=== PATIENT | male | born 1945 | race Caucasian/White ===

== ENCOUNTER 2017-05-26 10:44 | Inpatient (IN) | payer OTHER ==
[~2017-05-26] VITALS: Ht 175.3 cm; Wt 65.3 kg
[2017-05-26 13:37] LABS: BASOPHILS % 0.8 % (0.0-1.0); EOSINOPHILS # (AUTO) 0.1 (0.0-0.4); EOSINOPHILS % 2.4 % (0.0-6.0); HEMATOCRIT 44.2 % (38.2-49.6); HEMOGLOBIN 14.9 g/dL (14.0-18.0); LYMPHOCYTES # (AUTO) 1.4 (1.0-3.2); LYMPHOCYTES % 27.9 % (18.0-39.1); MEAN CORPUSCULAR HEMOGLOBIN 32.3 pg (28-32); MEAN CORPUSCULAR HGB CONC 33.7 g/dL (31-35); MEAN CORPUSCULAR VOLUME 95.7 fL (81-99); MONOCYTES # (AUTO) 0.6 (0.2-0.8); MONOCYTES % 11.5 % (4.4-11.3); NEUTROPHILS # (AUTO) 2.8 (2.1-6.9); NEUTROPHILS % 57.2 % (38.7-80.0); PLATELET COUNT 174 x10e3/uL (140-360); RED BLOOD COUNT 4.62 x10e6/uL (4.3-5.7); RED CELL DISTRIBUTION WIDTH 12.9 % (11.7-14.4)
[2017-05-26 13:58] LABS: ALANINE AMINOTRANSFERASE 13 IU/L (0-55); ALBUMIN 3.6 g/dL (3.5-5.0); ALBUMIN/GLOBULIN RATIO 1.6 (0.8-2.0); ALKALINE PHOSPHATASE 79 IU/L (40-150); ANION GAP 10.9 mmol/L (8-16); BLOOD UREA NITROGEN 13 mg/dL (7-26); BUN/CREATININE RATIO 14 (6-25); CALCIUM 9.2 mg/dL (8.4-10.2); CARBON DIOXIDE 28 mmol/L (22-29); CHLORIDE 103 mmol/L (98-107); CREATINE KINASE 42 IU/L (30-200); CREATININE, SERUM 0.93 mg/dL (0.72-1.25); EST GLOMERULAR FILTRATION RATE > 60 ML/MIN (60-); GLUCOSE 85 mg/dL (74-118); POTASSIUM 3.9 mmol/L (3.5-5.1); SODIUM 138 mmol/L (136-145)
[2017-05-26 14:17] LABS: THYROID STIMULATING HORMONE 1.525 uIU/mL (0.350-4.940)
[2017-05-26] MEDS ORDERED: SODIUM CHLORIDE 0.9% 1000ML 1,000 ML IV SCH (14:45)
[2017-05-26 15:02] LABS: COLOR,URINE YELLOW (YELLOW); KETONES,URINE TRACE (NEGATIVE); LEUKOCYTE ESTERASE ,URINE 1+ (NEGATIVE); URINE UROBILINOGEN 0.2 mg/dL (0.2 - 1)
[2017-05-26 15:07] LABS: CLARITY,URINE SL CLOUDY (CLEAR); NITRITE,URINE POSITIVE (NEGATIVE)
[2017-05-26 15:08] LABS: BILIRUBIN,URINE 1+ (NEGATIVE); PROTEIN,URINE DIPSTICK 2+ (NEGATIVE)
[2017-05-26 15:16] LABS: BACTERIA,URINE MANY /HPF; EPITHELIAL CELLS,URINE RARE /LPF; MUCUS,URINE MODERATE (RARE); RBC,URINE 21-50 /HPF (0-5)
--- NOTE | 2017-05-26 16:14 | Diagnostic Imaging Report ---
EXAMINATION: CHEST SINGLE (PORTABLE) INDICATION: \S\SOB \[id number] \S\1525 \S\Y COMPARISON: None FINDINGS: AP view TUBES and LINES: None. LUNGS: Lungs are well inflated. Lungs are clear. There is no evidence of pneumonia or pulmonary edema. PLEURA: No pleural effusion or pneumothorax. HEART AND MEDIASTINUM: The cardiomediastinal silhouette is unremarkable. BONES AND SOFT TISSUES: No acute osseous lesion. Soft tissues are unremarkable. UPPER ABDOMEN: No free air under the diaphragm. IMPRESSION: No acute thoracic abnormality. Signed by: DR. Luis Fernando Willoughby MD on 05/26/2017 4:11 PM
[2017-05-26] MEDS ORDERED: ONDANSETRON HCL INJ 2 MG/ML VIAL IV PRN (17:15)
[2017-05-26] MEDS: SODIUM CHLORIDE 0.9% 1000ML 1,000 ML IV SCH (17:37)
[2017-05-26 19:50] VITALS: BP 117/82
[2017-05-26] MEDS: MEROPENEM 1 GM VIAL IV SCH (20:20)
[2017-05-26] MEDS ORDERED: FLOMAX0.4 MG PO (21:01)
[2017-05-26] MEDS ORDERED: FINASTERIDE5 MG PO (21:01)
[2017-05-26] MEDS ORDERED: LOSARTAN POTASS25 MG PO (21:01)
[2017-05-26] MEDS ORDERED: BUPROPION XL150 MG PO (21:01)
[2017-05-26] MEDS ORDERED: ABILIFY5 MG PO (21:02)
[2017-05-26] MEDS ORDERED: METOPROLOL SUCC25 MG PO (21:02)
[2017-05-26] MEDS ORDERED: ATORVASTATIN CA20 MG PO (21:02)
[2017-05-26] MEDS ORDERED: ASPIRIN81 MG PO (21:02)
[2017-05-26 21:03] VITALS: BP 117/82
[2017-05-26 21:16] VITALS: BP 117/82
[2017-05-26 22:48] LABS: CREATINE KINASE MB 0.8 ng/mL (0.00-5.00)
[2017-05-26] MEDS ORDERED: MEROPENEM 1GRAM 1 GM in SODIUM CHLORIDE 0.9% 100 ML 100 ML IV SCH (23:00)
[2017-05-27] VITALS: BP 139/90
[2017-05-27] MEDS: MEROPENEM 1 GM VIAL IV SCH ×3 (02:25→17:06)
[2017-05-27] MEDS: SODIUM CHLORIDE 0.9% 1000ML 1,000 ML IV SCH ×4 (02:25→19:37)
[2017-05-27 04:00] VITALS: BP 137/79
[2017-05-27 07:05] LABS: BASOPHILS # (AUTO) 0.1 (0.0-0.1); BASOPHILS % 0.9 % (0.0-1.0); EOSINOPHILS # (AUTO) 0.2 (0.0-0.4); EOSINOPHILS % 4.1 % (0.0-6.0); HEMATOCRIT 41.8 % (38.2-49.6); HEMOGLOBIN 13.7 g/dL (14.0-18.0); LYMPHOCYTES # (AUTO) 1.9 (1.0-3.2); LYMPHOCYTES % 34.2 % (18.0-39.1); MEAN CORPUSCULAR HEMOGLOBIN 32.3 pg (28-32); MEAN CORPUSCULAR HGB CONC 32.8 g/dL (31-35); MEAN CORPUSCULAR VOLUME 98.6 fL (81-99); MONOCYTES # (AUTO) 0.5 (0.2-0.8); MONOCYTES % 9.1 % (4.4-11.3); NEUTROPHILS # (AUTO) 2.8 (2.1-6.9); NEUTROPHILS % 51.3 % (38.7-80.0); PLATELET COUNT 148 x10e3/uL (140-360); RED BLOOD COUNT 4.24 x10e6/uL (4.3-5.7); RED CELL DISTRIBUTION WIDTH 12.8 % (11.7-14.4)
[2017-05-27 07:28] LABS: ANION GAP 11.9 mmol/L (8-16); BLOOD UREA NITROGEN 12 mg/dL (7-26); BUN/CREATININE RATIO 16 (6-25); CALCIUM 8.3 mg/dL (8.4-10.2); CARBON DIOXIDE 25 mmol/L (22-29); CHLORIDE 110 mmol/L (98-107); CREATINE KINASE 30 IU/L (30-200); CREATININE, SERUM 0.75 mg/dL (0.72-1.25); EST GLOMERULAR FILTRATION RATE > 60 ML/MIN (60-); GLUCOSE 68 mg/dL (74-118); POTASSIUM 3.9 mmol/L (3.5-5.1); SODIUM 143 mmol/L (136-145)
[2017-05-27 08:02] VITALS: BP 140/65
--- NOTE | 2017-05-27 10:07 | History and Physical ---
CHIEF COMPLAINT: Dehydration, prostatitis with Banerjee catheter due to urinary retention. HISTORY: Patient is a 71-year-old male recently discharged from the [facility]. The patient has urinary retention. He has an enlarged prostate. He is pending for TURP procedures, and apparently he was at the outpatient procedure room when he did not look well. Patient was brought to the hospital and subsequently found to have a urinary tract infection, low blood pressure and also with dehydration. The patient is placed in observation. The patient will need to continue with antibiotic treatment. He will need to have a procedure done before he leaves the hospital because of recurrent infection. He was hospitalized recently, and TURP was not done at the time. PAST MEDICAL HISTORY: Enlarged prostate with prostate cancer, recurrent urinary tract infections, Banerjee catheter in place, hypertension, and hyperlipidemia, and mild dementia. PAST SURGICAL HISTORY: Noncontributory. SOCIAL HISTORY: Patient does not smoke or use alcohol. No regular drugs. ALLERGIES: TOBRAMYCIN. HOME MEDICATIONS: List will be available for review. REVIEW OF SYSTEMS: No chest pain. No shortness of breath and no neurological deficit. PHYSICAL EXAMINATION VITAL SIGNS: Temperature is 98, blood pressure 140/65, pulse rate is 56, respirations 18. GENERAL: The patient is not in acute distress. He is awake. HEENT: Normocephalic, atraumatic and anicteric. NECK: Supple grossly. PULMONARY: Clear. CARDIOVASCULAR: Regular rate and rhythm. ABDOMEN: Soft. EXTREMITIES: No gross cyanosis or edema. NEUROLOGIC: No focal deficit. The patient has a Banerjee catheter in place. Urinalysis showed 2+ protein, 1+ bilirubin, 4+ blood, wbcs of 10 with rbcs of 50. Leukocytes are 1+ and bacteria negative. IMPRESSION 1. Prostatitis. 2. Urinary retention. 3. Recurrent hospitalizations. 4. Transurethral resection of prostate needed. PLAN: Prep the patient for the procedure of TURP. The patient will be admitted for pending procedure. The patient has a recurrent problem with his Banerjee catheter when he is discharged home. The patient will have the same cycle of infection with Banerjee catheter in place. The patient is otherwise stable at this time. Job#: [id number] MA
[2017-05-27 12:06] VITALS: BP 134/84
[2017-05-27 15:49] VITALS: BP 134/84
[2017-05-27 19:20] VITALS: BP 145/93
[2017-05-28] VITALS (7 sets, daily range): BP systolic 137–158; BP diastolic 84–95
[2017-05-28] MEDS: MEROPENEM 1 GM VIAL IV SCH ×3 (02:00→17:51)
[2017-05-28] MEDS: SODIUM CHLORIDE 0.9% 1000ML 1,000 ML IV SCH ×2 (09:08→17:51)
--- NOTE | 2017-05-28 11:22 | Cardiology Report ---
DATE OF STUDY: May 27, 2017 ECHOCARDIOGRAM M-MODE: Dilated left atrium. Top normal left ventricular size. Diminished left ventricular contractility. Normal mitral and aortic valves. No pericardial effusion. SECTOR SCAN: Dilated left atrium. Top normal left ventricular size. Diminished left ventricular contractility. Ejection fraction 30% to 35%. Mitral, aortic and tricuspid valves are grossly normal. There is no pericardial effusion. CARDIAC DOPPLER STUDY WITH COLOR: 1+ aortic regurgitation. 1 to 2+ mitral regurgitation. Trace tricuspid regurgitation. There is evidence of diastolic dysfunction. CONCLUSIONS 1. Diminished left ventricular contractility. Ejection fraction estimated at 30% to 35%. 2. Evidence of diastolic dysfunction. 3. Mild to moderate mitral regurgitation with dilated left atrium. 4. Mild aortic regurgitation. 5. Trace tricuspid regurgitation. Job#: [id number] cc:TITA SALCEDO MD
[2017-05-28] MEDS: ARIPIPRAZOLE 2 MG TABLET PO SCH (21:00)
[2017-05-28] MEDS: ATORVASTATIN 20 MG TAB PO SCH (21:00)
[2017-05-28] MEDS: METOPROLOL SUCCINATE 25 MG TAB XL PO SCH (21:00)
[2017-05-29] VITALS (7 sets, daily range): BP systolic 136–142; BP diastolic 81–92
[2017-05-29] MEDS: MEROPENEM 1 GM VIAL IV SCH ×3 (01:17→17:43)
[2017-05-29] MEDS: FINASTERIDE 5 MG TAB PO SCH (08:19)
[2017-05-29] MEDS: LOSARTAN POTASSIUM 100 MG TAB PO SCH (08:19)
[2017-05-29] MEDS: BUPROPION HCL 75 MG TAB PO SCH (08:19)
[2017-05-29] MEDS: MEMANTINE 10 MG TAB PO SCH ×2 (11:00→17:19)
[2017-05-29] MEDS: TAMSULOSIN HCL 0.4 MG CAP PO SCH (17:19)
[2017-05-29] MEDS: METOPROLOL SUCCINATE 25 MG TAB XL PO SCH (21:00)
[2017-05-29] MEDS: ATORVASTATIN 20 MG TAB PO SCH (21:07)
[2017-05-29] MEDS: ARIPIPRAZOLE 2 MG TABLET PO SCH (21:07)
[2017-05-30] VITALS (7 sets, daily range): BP systolic 111–135; BP diastolic 68–87
[2017-05-30] MEDS: MEROPENEM 1 GM VIAL IV SCH ×3 (01:24→18:36)
[2017-05-30] MEDS: BUPROPION HCL 75 MG TAB PO SCH (08:52)
[2017-05-30] MEDS: LOSARTAN POTASSIUM 100 MG TAB PO SCH (08:52)
[2017-05-30] MEDS: MEMANTINE 10 MG TAB PO SCH ×2 (08:52→17:45)
[2017-05-30] MEDS: FINASTERIDE 5 MG TAB PO SCH (08:52)
--- NOTE | 2017-05-30 10:57 | Consultation ---
DATE OF CONSULTATION: May 30, 2017 CARDIOLOGY CONSULTATION REQUESTING PHYSICIAN: Dr. Bo Cartwright. REASON FOR CONSULTATION: Cardiac clearance. HISTORY OF PRESENT ILLNESS: This is a 71-year-old male with multiple hospital admissions that presented with low heart rate. According to the at the bedside, he was at Dr. Zavala's office for outpatient followup and they found out that the heart rate was low and he was sent over here for evaluation. He had an echocardiogram done that showed EF 30% to 35%, and Cardiology was consulted for cardiac clearance. He denies any chest pain, any palpitation, any diaphoresis or headache. His troponin was negative. EKG showed normal sinus rhythm with some PVCs. PAST MEDICAL HISTORY: Hypertension, AFib, multiple UTIs, BPH, prostatitis, indwelling catheter. PAST SURGICAL HISTORY: Hernia repair, left testicle removal. FAMILY HISTORY: Noncontributory. SOCIAL HISTORY: No smoking, no drinking. MEDICATIONS: See med list. ALLERGIES: HE IS ALLERGIC TO TOBRAMYCIN. REVIEW OF SYSTEMS: Negative except those mentioned above. PHYSICAL EXAMINATION VITAL SIGNS: Temperature 97, heart rate 50, blood pressure 122/76, respiration 18, oxygen saturation 95% on room air. GENERAL: He is alert, awake and very lethargic. HEENT: Mucous membrane moist. NECK: Supple. LUNGS: Bilaterally with decreased breath sounds. CARDIOVASCULAR: Irregular. ABDOMEN: Soft. NEUROLOGICAL: Intact. He is able to move all extremities. EXTREMITIES: Bilateral lower extremities with plus edema. LABS: Sodium 143, potassium 3.9, chloride 110, CO2 25, BUN 12, creatinine 0.75, glucose 68. White blood cell 5.41, hemoglobin 13.7, hematocrit 41.8, platelet 148. IMPRESSION 1. Systolic congestive heart failure. 2. Prostatitis. 3. Hypertension. 4. Urinary tract infection. 5. Bradycardia. 6. History of atrial fibrillation. ASSESSMENT/PLAN: He has history of AFib in the past and was on metoprolol and not anticoagulated according to the . I will go ahead and put him on a tele monitor. Hold the beta mauro. I discussed about possible cardiac catheterization, and he and the want to think about it. He is planned for TURP. Will check his TSH and magnesium. Further cardiac workup pending clinical course. Thank you for this consultation. Dictated by: Perla Espitia NP Job#: [id number] EV
[2017-05-30] MEDS: TAMSULOSIN HCL 0.4 MG CAP PO SCH (17:45)
[2017-05-30] MEDS: ARIPIPRAZOLE 2 MG TABLET PO SCH (21:02)
[2017-05-30] MEDS: ATORVASTATIN 20 MG TAB PO SCH (21:02)
[2017-05-31] VITALS (9 sets, daily range): BP systolic 119–150; BP diastolic 72–94
[2017-05-31] MEDS: MEROPENEM 1 GM VIAL IV SCH ×4 (02:00→20:50)
[2017-05-31] MEDS: BUPROPION HCL 75 MG TAB PO SCH ×2 (09:00→13:12)
[2017-05-31] MEDS: LOSARTAN POTASSIUM 100 MG TAB PO SCH ×2 (09:00→13:12)
[2017-05-31] MEDS: FINASTERIDE 5 MG TAB PO SCH ×2 (09:00→13:12)
[2017-05-31] MEDS: MEMANTINE 10 MG TAB PO SCH ×3 (09:00→16:46)
[2017-05-31] MEDS: TAMSULOSIN HCL 0.4 MG CAP PO SCH (17:05)
[2017-05-31] MEDS: ARIPIPRAZOLE 2 MG TABLET PO SCH (20:50)
[2017-05-31] MEDS: ATORVASTATIN 40 MG TAB PO SCH (20:50)
[2017-06-01] MEDS: MEROPENEM 1 GM VIAL IV SCH ×3 (04:49→21:31)
[2017-06-01 05:26] VITALS: BP 117/79
[2017-06-01] MEDS ORDERED: LIDOCAINE HCL 2% LOCAL 20 ML VIAL ONE ×2 (07:05→07:11)
[2017-06-01] MEDS ORDERED: HEPARIN SOD/SOD CHLORIDE 2,000 ML ONE (07:06)
[2017-06-01] MEDS ORDERED: IOPAMIDOL 370 MG/ML 200 ML INFUS..BTL INJ ONE (07:06)
[2017-06-01] MEDS ORDERED: HEPARIN SOD (PORCINE) 1000 UNIT/ML 30ML ONE (07:10)
[2017-06-01] MEDS ORDERED: FENTANYL CITRATE/PF 100MCG/2 ML INJ ONE (07:11)
[2017-06-01] MEDS ORDERED: MIDAZOLAM HCL 2 MG/2 ML VIAL ONE (07:11)
[2017-06-01] MEDS ORDERED: SODIUM CHLORIDE 0.9% 1000ML 1,000 ML ONE ×2 (07:12→13:59)
[2017-06-01] MEDS ORDERED: NITROGLYCERIN/D5W 200 MCG/ML 250 ML ONE (07:13)
[2017-06-01 07:25] VITALS: BP 127/65
[2017-06-01 08:33] VITALS: BP 127/65
[2017-06-01] MEDS: FINASTERIDE 5 MG TAB PO SCH (09:00)
[2017-06-01] MEDS: BUPROPION HCL 75 MG TAB PO SCH (09:00)
[2017-06-01] MEDS: LOSARTAN POTASSIUM 100 MG TAB PO SCH (09:00)
[2017-06-01] MEDS: MEMANTINE 10 MG TAB PO SCH ×2 (09:00→17:00)
[2017-06-01 09:08] VITALS: BP 126/74
[2017-06-01 12:25] VITALS: BP 121/84
[2017-06-01] MEDS: SODIUM CHLORIDE 0.9% 1000ML 1,000 ML IV SCH (14:22)
[2017-06-01] MEDS: VANCOMYCIN 1GM/NS 250 ML 250 ML IV SCH (14:22)
[2017-06-01] MEDS: TAMSULOSIN HCL 0.4 MG CAP PO SCH (16:30)
--- NOTE | 2017-06-01 18:29 | Operative Report ---
DATE OF PROCEDURE: PROCEDURES 1. Left heart catheterization. 2. Selective coronary angiogram. 3. Left ventriculogram. INDICATIONS: Cardiomyopathy. DESCRIPTION OF PROCEDURE: After informed consent, the patient was brought to the cardiac catheterization laboratory and placed on the table. Both groins were painted and draped in a sterile fashion. Lidocaine injected into the right groin for local anesthesia. Right femoral artery was accessed by Seldinger technique, and a 5-Northern Irish sheath was placed in the right femoral artery. The left main was cannulated using a JL4 5-Northern Irish catheter. Coronary angiogram was performed and images obtained in multiple views. The right coronary artery was cannulated using a 3DRC 5-Northern Irish catheter. Coronary angiogram was performed and images obtained in multiple views. LV-gram was performed using a pigtail catheter. Patient tolerated the procedure without any complications. REPORT LEFT MAIN: Normal caliber and is free of disease. LEFT ANTERIOR DESCENDING: Normal caliber with luminal irregularities. LEFT CIRCUMFLEX: Large caliber with luminal irregularities. RIGHT CORONARY ARTERY: Narrow caliber, nondominant with luminal irregularities. LV-GRAM: Ejection fraction is 40% to 45%. HEMODYNAMICS: Aortic pressure 122/65. LV pressure 117/20. LVEDP is 8. PLAN: Medical management. Job#: [id number] JINA
[2017-06-01 20:51] VITALS: BP 138/83
[2017-06-01] MEDS: ATORVASTATIN 40 MG TAB PO SCH (23:01)
[2017-06-01] MEDS: ARIPIPRAZOLE 2 MG TABLET PO SCH (23:01)
[2017-06-02] VITALS (8 sets, daily range): BP systolic 110–135; BP diastolic 70–89
[2017-06-02] MEDS: SODIUM CHLORIDE 0.9% 1000ML 1,000 ML IV SCH ×2 (00:32→10:45)
[2017-06-02] MEDS: VANCOMYCIN 1GM/NS 250 ML 250 ML IV SCH ×2 (00:41→13:15)
[2017-06-02] MEDS: MEROPENEM 1 GM VIAL IV SCH ×3 (05:35→21:52)
[2017-06-02] MEDS: FINASTERIDE 5 MG TAB PO SCH (09:00)
[2017-06-02] MEDS: MEMANTINE 10 MG TAB PO SCH ×2 (09:00→17:00)
[2017-06-02] MEDS: LOSARTAN POTASSIUM 100 MG TAB PO SCH (09:00)
[2017-06-02] MEDS: BUPROPION HCL 75 MG TAB PO SCH (09:00)
[2017-06-02] MEDS ORDERED: BELLADONNA/OPIUM 60 MG SUPP PR ONE (11:57)
[2017-06-02] MEDS ORDERED: IOPAMIDOL 610MG/1ML 300 MG/ML VIAL IV ONE (11:57)
[2017-06-02] MEDS ORDERED: SODIUM CHLORIDE 0.9% 100 ML 100 ML ONE (14:11)
[2017-06-02] MEDS ORDERED: BELLADONNA/OPIUM 60 MG SUPP PR PRN (14:15)
[2017-06-02] MEDS: TAMSULOSIN HCL 0.4 MG CAP PO SCH (16:30)
[2017-06-02] MEDS ORDERED: FENTANYL CITRATE/PF 100MCG/2 ML INJ ONE (20:11)
[2017-06-02] MEDS ORDERED: ONDANSETRON HCL INJ 2 MG/ML VIAL ONE (20:14)
[2017-06-02] MEDS ORDERED: PHENYLEPHRINE HCL 1% 10 MG/ML VIAL ONE (20:14)
[2017-06-02] MEDS ORDERED: ROCURONIUM BROMIDE 10 MG/ML 5ML VIAL ONE (20:14)
[2017-06-02] MEDS ORDERED: GLYCOPYRROLATE INJ 1MG/ 5 ML SYR ONE (20:14)
[2017-06-02] MEDS ORDERED: SEVOFLURANE INHAL SOLN 250 ML PEN BTL ONE (20:14)
[2017-06-02] MEDS ORDERED: PROPOFOL IV EMULSION 10 MG/ML 20 ML VIAL ONE (20:14)
[2017-06-02] MEDS ORDERED: LIDOCAINE HCL 2% LOCAL INJ 5 ML SDV VIAL INJ ONE (20:14)
[2017-06-02] MEDS ORDERED: EPHEDRINE SULFATE INJ 50 MG/10 ML SYR ONE (20:14)
[2017-06-02] MEDS ORDERED: DEXAMETHASONE SOD PHOS INJ 4 MG/ML VIAL ONE (20:14)
[2017-06-02] MEDS ORDERED: FUROSEMIDE INJ 10 MG/ML 4 ML VIAL ONE (20:14)
[2017-06-02] MEDS ORDERED: NEOSTIGMINE 5 MG/5ML SYR ONE (20:14)
[2017-06-02] MEDS: ARIPIPRAZOLE 2 MG TABLET PO SCH (21:52)
[2017-06-02] MEDS: ATORVASTATIN 40 MG TAB PO SCH (21:52)
[2017-06-03] VITALS: BP 121/75
[2017-06-03 01:10] VITALS: BP 121/75
[2017-06-03] MEDS: MEROPENEM 1 GM VIAL IV SCH ×3 (05:24→20:21)
[2017-06-03 06:19] LABS: BASOPHILS % 0.3 % (0.0-1.0); EOSINOPHILS # (AUTO) 0.1 (0.0-0.4); EOSINOPHILS % 0.6 % (0.0-6.0); HEMOGLOBIN 14.2 g/dL (14.0-18.0); LYMPHOCYTES # (AUTO) 1.3 (1.0-3.2); LYMPHOCYTES % 16.3 % (18.0-39.1); MEAN CORPUSCULAR HEMOGLOBIN 32.3 pg (28-32); MEAN CORPUSCULAR VOLUME 97.9 fL (81-99); MONOCYTES # (AUTO) 0.6 (0.2-0.8); MONOCYTES % 7.6 % (4.4-11.3); NEUTROPHILS # (AUTO) 5.9 (2.1-6.9); NEUTROPHILS % 74.6 % (38.7-80.0); PLATELET COUNT 134 x10e3/uL (140-360); RED BLOOD COUNT 4.39 x10e6/uL (4.3-5.7); RED CELL DISTRIBUTION WIDTH 12.9 % (11.7-14.4)
[2017-06-03 06:44] LABS: ANION GAP 12.3 mmol/L (8-16); BLOOD UREA NITROGEN 13 mg/dL (7-26); BUN/CREATININE RATIO 16 (6-25); CALCIUM 8.7 mg/dL (8.4-10.2); CARBON DIOXIDE 29 mmol/L (22-29); CHLORIDE 106 mmol/L (98-107); CREATININE, SERUM 0.82 mg/dL (0.72-1.25); EST GLOMERULAR FILTRATION RATE > 60 ML/MIN (60-); GLUCOSE 95 mg/dL (74-118); POTASSIUM 4.3 mmol/L (3.5-5.1); SODIUM 143 mmol/L (136-145)
[2017-06-03 08:00] VITALS: BP 129/70
[2017-06-03] MEDS: FINASTERIDE 5 MG TAB PO SCH (09:12)
[2017-06-03] MEDS: BUPROPION HCL 75 MG TAB PO SCH (09:12)
[2017-06-03] MEDS: MEMANTINE 10 MG TAB PO SCH ×2 (09:12→16:32)
[2017-06-03] MEDS: LOSARTAN POTASSIUM 100 MG TAB PO SCH (09:12)
[2017-06-03 12:00] VITALS: BP 104/63
[2017-06-03 16:00] VITALS: BP 112/65
[2017-06-03] MEDS: TAMSULOSIN HCL 0.4 MG CAP PO SCH (16:32)
[2017-06-03] MEDS: ATORVASTATIN 40 MG TAB PO SCH (20:21)
[2017-06-03] MEDS: ARIPIPRAZOLE 2 MG TABLET PO SCH (20:21)
[2017-06-04] MEDS: MEROPENEM 1 GM VIAL IV SCH ×4 (04:29→22:06)
[2017-06-04 07:53] VITALS: BP 111/68
[2017-06-04] MEDS ORDERED: CHLORPROMAZINE HCL 25 MG TAB PO PRN ×2 (09:00→09:30)
[2017-06-04] MEDS: LOSARTAN POTASSIUM 100 MG TAB PO SCH (09:00)
[2017-06-04] MEDS: FINASTERIDE 5 MG TAB PO SCH (09:00)
[2017-06-04] MEDS: MEMANTINE 10 MG TAB PO SCH ×2 (09:00→17:00)
[2017-06-04] MEDS: BUPROPION HCL 75 MG TAB PO SCH (09:00)
[2017-06-04 10:46] VITALS: BP 111/68
[2017-06-04] MEDS ORDERED: CHLORPROMAZINE HCL INJ 25 MG/ML AMP INJ ONE (13:00)
[2017-06-04 16:18] VITALS: BP 116/72
[2017-06-04] MEDS: TAMSULOSIN HCL 0.4 MG CAP PO SCH (16:30)
[2017-06-04 20:00] VITALS: BP 92/65
[2017-06-04] MEDS: ATORVASTATIN 40 MG TAB PO SCH (21:00)
[2017-06-04] MEDS: ARIPIPRAZOLE 2 MG TABLET PO SCH (21:00)
[2017-06-05] VITALS (7 sets, daily range): BP systolic 103–125; BP diastolic 66–83
[2017-06-05] MEDS: FINASTERIDE 5 MG TAB PO SCH (08:49)
[2017-06-05] MEDS: MEMANTINE 10 MG TAB PO SCH ×2 (09:00→17:00)
[2017-06-05] MEDS: LOSARTAN POTASSIUM 100 MG TAB PO SCH (09:00)
[2017-06-05] MEDS: BUPROPION HCL 75 MG TAB PO SCH (09:00)
[2017-06-05] MEDS: MEROPENEM 1 GM VIAL IV SCH (13:07)
[2017-06-05] MEDS: VANCOMYCIN 1GM/NS 250 ML 250 ML IV SCH (14:59)
[2017-06-05] MEDS: TAMSULOSIN HCL 0.4 MG CAP PO SCH (18:37)
[2017-06-05] MEDS: MEGESTROL ACETATE 40 MG TAB PO SCH (18:37)
[2017-06-05] MEDS: MIRTAZAPINE 15 MG TAB PO SCH (20:59)
[2017-06-05] MEDS: ATORVASTATIN 40 MG TAB PO SCH (20:59)
[2017-06-05] MEDS: ARIPIPRAZOLE 2 MG TABLET PO SCH (20:59)
[2017-06-06] VITALS (7 sets, daily range): BP systolic 105–126; BP diastolic 68–85
[2017-06-06] MEDS: FINASTERIDE 5 MG TAB PO SCH (09:45)
[2017-06-06] MEDS: LOSARTAN POTASSIUM 100 MG TAB PO SCH (09:45)
[2017-06-06] MEDS: MEGESTROL ACETATE 40 MG TAB PO SCH ×3 (09:45→16:52)
[2017-06-06] MEDS: MEMANTINE 10 MG TAB PO SCH ×2 (09:45→16:52)
[2017-06-06 12:28] LABS: ANION GAP 9.6 mmol/L (8-16); BLOOD UREA NITROGEN 17 mg/dL (7-26); BUN/CREATININE RATIO 21 (6-25); CALCIUM 8.2 mg/dL (8.4-10.2); CARBON DIOXIDE 28 mmol/L (22-29); CHLORIDE 106 mmol/L (98-107); EST GLOMERULAR FILTRATION RATE > 60 ML/MIN (60-); GLUCOSE 103 mg/dL (74-118); POTASSIUM 3.6 mmol/L (3.5-5.1); SODIUM 140 mmol/L (136-145)
[2017-06-06 12:33] LABS: BASOPHILS # (AUTO) 0.1 (0.0-0.1); BASOPHILS % 0.9 % (0.0-1.0); EOSINOPHILS # (AUTO) 0.2 (0.0-0.4); EOSINOPHILS % 3.4 % (0.0-6.0); HEMATOCRIT 43.6 % (38.2-49.6); HEMOGLOBIN 14.5 g/dL (14.0-18.0); LYMPHOCYTES # (AUTO) 0.9 (1.0-3.2); LYMPHOCYTES % 16.1 % (18.0-39.1); MEAN CORPUSCULAR HEMOGLOBIN 31.9 pg (28-32); MEAN CORPUSCULAR HGB CONC 33.3 g/dL (31-35); MONOCYTES # (AUTO) 0.5 (0.2-0.8); MONOCYTES % 8.5 % (4.4-11.3); NEUTROPHILS # (AUTO) 4.1 (2.1-6.9); NEUTROPHILS % 70.8 % (38.7-80.0); PLATELET COUNT 116 x10e3/uL (140-360); RED BLOOD COUNT 4.54 x10e6/uL (4.3-5.7); RED CELL DISTRIBUTION WIDTH 12.7 % (11.7-14.4)
[2017-06-06] MEDS: VANCOMYCIN 1GM/NS 250 ML 250 ML IV SCH (14:49)
[2017-06-06] MEDS: TAMSULOSIN HCL 0.4 MG CAP PO SCH (16:52)
[2017-06-06] MEDS: ARIPIPRAZOLE 2 MG TABLET PO SCH (20:42)
[2017-06-06] MEDS: ATORVASTATIN 40 MG TAB PO SCH (20:42)
[2017-06-06] MEDS: MIRTAZAPINE 15 MG TAB PO SCH (20:42)
[2017-06-07 01:41] VITALS: BP 118/87
[2017-06-07 05:09] VITALS: BP 113/82
[2017-06-07 08:00] VITALS: BP 117/84
[2017-06-07] MEDS: MEGESTROL ACETATE 40 MG TAB PO SCH ×3 (08:30→18:20)
[2017-06-07] MEDS: FINASTERIDE 5 MG TAB PO SCH (08:30)
[2017-06-07] MEDS: LOSARTAN POTASSIUM 100 MG TAB PO SCH (08:30)
[2017-06-07] MEDS: MEMANTINE 10 MG TAB PO SCH ×2 (08:30→18:20)
[2017-06-07 12:00] VITALS: BP 107/75
[2017-06-07] MEDS: VANCOMYCIN 1GM/NS 250 ML 250 ML IV SCH (15:00)
[2017-06-07 16:00] VITALS: BP 108/76
[2017-06-07] MEDS: TAMSULOSIN HCL 0.4 MG CAP PO SCH (18:20)
[2017-06-07 20:00] VITALS: BP 118/73
[2017-06-07] MEDS: ARIPIPRAZOLE 2 MG TABLET PO SCH (21:50)
[2017-06-07] MEDS: ATORVASTATIN 40 MG TAB PO SCH (21:50)
[2017-06-07] MEDS: MIRTAZAPINE 15 MG TAB PO SCH (21:50)
[2017-06-08] MEDS: MEGESTROL ACETATE 40 MG TAB PO SCH ×3 (07:30→16:30)
[2017-06-08 08:07] VITALS: BP 120/78
[2017-06-08] MEDS: FINASTERIDE 5 MG TAB PO SCH (09:57)
[2017-06-08] MEDS: LOSARTAN POTASSIUM 100 MG TAB PO SCH (09:57)
[2017-06-08] MEDS: MEMANTINE 10 MG TAB PO SCH ×2 (09:57→17:00)
[2017-06-08 12:00] VITALS: BP 110/76
[2017-06-08 16:23] VITALS: BP 103/83
[2017-06-08] MEDS: TAMSULOSIN HCL 0.4 MG CAP PO SCH (16:30)
[2017-06-08] MEDS: VANCOMYCIN 1GM/NS 250 ML 250 ML IV SCH (17:31)
[2017-06-08 20:00] VITALS: BP 132/71
[2017-06-08] MEDS: MIRTAZAPINE 15 MG TAB PO SCH (21:00)
[2017-06-08] MEDS: ARIPIPRAZOLE 2 MG TABLET PO SCH (21:41)
[2017-06-08] MEDS: ATORVASTATIN 40 MG TAB PO SCH (21:41)
[2017-06-09 08:11] VITALS: BP 106/73
[2017-06-09] MEDS: LOSARTAN POTASSIUM 100 MG TAB PO SCH ×2 (09:00→09:05)
[2017-06-09] MEDS: MEMANTINE 10 MG TAB PO SCH ×3 (09:00→16:05)
[2017-06-09] MEDS: FINASTERIDE 5 MG TAB PO SCH ×2 (09:00→09:05)
[2017-06-09 09:05] VITALS: BP 106/73
[2017-06-09] MEDS: METOPROLOL TARTRATE 25 MG TAB PO SCH (09:05)
[2017-06-09] MEDS: MEGESTROL ACETATE 40 MG TAB PO SCH ×3 (09:05→16:05)
[2017-06-09 12:11] VITALS: BP 92/58
--- NOTE | 2017-06-09 13:52 | Discharge Summary ---
CONSULTANTS: Dr. Zain Sidhu and Dr. Celio Zavala. PRIMARY CARE PHYSICIAN: Dr. Svetlana Dunlap. FINAL DIAGNOSES 1. Status post cardiac catheterization, no intervention. 2. Status post transurethral resection of the prostate secondary to enlarged prostate. 3. Urinary retention, Banerjee catheter. 4. Paroxysmal atrial fibrillation, refused anticoagulation therapy. 5. Advanced dementia with agitation. 6. Urinary tract infection, ongoing antibiotic treatment. SUMMARY: Patient is a 71-year-old male, just recently discharged from [facility] with a Banerjee catheter for a procedure plan as an outpatient with a TURP with Dr. Celio Zavala. The patient was sent to the outpatient procedure of TURP, but when he gets there, the patient was dehydrated with acute kidney injury secondary to dehydration. Patient was also with urinary tract infection as well. The patient was subsequently admitted. His EF was 30%. Therefore, cardiac clearing was obtained. The patient had a cardiac catheterization showing an ejection fraction approximately 45% to 50%. There was no intervention and no significant coronary artery disease. The patient subsequently underwent TURP and he did well. During this time, the patient continued with antibiotics IV. He does have mild dementia with agitation and at times needed medication for control. His psychiatric medication adjusted. Appetite stimulant given. Remeron initiated. Patient is doing much better now. Arrangement for the patient to go to skilled facility to continue with vancomycin for approximately 7 days. Adjustment in his medications made. He will continue with PT/OT. Encouraged oral intake. Continue with Banerjee care if needed. The patient will follow up Dr. Celio Zavala as planned. The patient again refused anticoagulant for his PAF. Job#: [id number] [facility] cc:Svetlana Dunlap MD
[2017-06-09 16:03] VITALS: BP 118/72
[2017-06-09] MEDS: TAMSULOSIN HCL 0.4 MG CAP PO SCH (17:04)
[2017-06-09] MEDS: VANCOMYCIN 1GM/NS 250 ML 250 ML IV SCH (17:04)
[2017-06-09 20:00] VITALS: BP 127/72
[2017-06-09] MEDS: MIRTAZAPINE 15 MG TAB PO SCH (20:47)
[2017-06-09] MEDS: ATORVASTATIN 40 MG TAB PO SCH (20:47)
[2017-06-09] MEDS: ARIPIPRAZOLE 2 MG TABLET PO SCH (20:47)
[2017-06-10] VITALS (7 sets, daily range): BP systolic 104–127; BP diastolic 56–85
[2017-06-10] MEDS: MEGESTROL ACETATE 40 MG TAB PO SCH ×3 (07:30→16:30)
[2017-06-10 09:18] LABS: BASOPHILS # (AUTO) 0.1 (0.0-0.1); BASOPHILS % 1.4 % (0.0-1.0); EOSINOPHILS # (AUTO) 0.2 (0.0-0.4); EOSINOPHILS % 4.7 % (0.0-6.0); HEMATOCRIT 43.8 % (38.2-49.6); HEMOGLOBIN 14.5 g/dL (14.0-18.0); LYMPHOCYTES # (AUTO) 1.7 (1.0-3.2); LYMPHOCYTES % 32.8 % (18.0-39.1); MEAN CORPUSCULAR HEMOGLOBIN 32.4 pg (28-32); MEAN CORPUSCULAR HGB CONC 33.1 g/dL (31-35); MONOCYTES # (AUTO) 0.3 (0.2-0.8); MONOCYTES % 6.5 % (4.4-11.3); NEUTROPHILS # (AUTO) 2.8 (2.1-6.9); NEUTROPHILS % 54.4 % (38.7-80.0); PLATELET COUNT 143 x10e3/uL (140-360); RED BLOOD COUNT 4.47 x10e6/uL (4.3-5.7); RED CELL DISTRIBUTION WIDTH 13.1 % (11.7-14.4)
[2017-06-10 09:34] LABS: ANION GAP 8.4 mmol/L (8-16); BLOOD UREA NITROGEN 14 mg/dL (7-26); BUN/CREATININE RATIO 16 (6-25); CALCIUM 8.6 mg/dL (8.4-10.2); CARBON DIOXIDE 29 mmol/L (22-29); CHLORIDE 109 mmol/L (98-107); CREATININE, SERUM 0.85 mg/dL (0.72-1.25); EST GLOMERULAR FILTRATION RATE > 60 ML/MIN (60-); GLUCOSE 108 mg/dL (74-118); POTASSIUM 3.4 mmol/L (3.5-5.1); SODIUM 143 mmol/L (136-145)
[2017-06-10] MEDS: LOSARTAN POTASSIUM 100 MG TAB PO SCH (10:06)
[2017-06-10] MEDS: METOPROLOL TARTRATE 25 MG TAB PO SCH (10:06)
[2017-06-10] MEDS: FINASTERIDE 5 MG TAB PO SCH (10:07)
[2017-06-10] MEDS: MEMANTINE 10 MG TAB PO SCH ×2 (10:07→16:41)
[2017-06-10] MEDS ORDERED: BISACODYL 5 MG TAB EC PO ONE (11:45)
[2017-06-10] MEDS ORDERED: BISACODYL 5 MG TAB EC PO PRN (11:45)
[2017-06-10] MEDS: VANCOMYCIN 1GM/NS 250 ML 250 ML IV SCH (14:11)
[2017-06-10] MEDS: TAMSULOSIN HCL 0.4 MG CAP PO SCH (16:41)
[2017-06-10] MEDS: ARIPIPRAZOLE 2 MG TABLET PO SCH (20:50)
[2017-06-11 06:13] VITALS: BP 106/70
[2017-06-11] MEDS: MEGESTROL ACETATE 40 MG TAB PO SCH ×3 (07:30→16:30)
[2017-06-11 08:00] VITALS: BP 123/79
[2017-06-11] MEDS: LOSARTAN POTASSIUM 100 MG TAB PO SCH (10:21)
[2017-06-11] MEDS: MEMANTINE 10 MG TAB PO SCH ×2 (10:21→16:50)
[2017-06-11] MEDS: FINASTERIDE 5 MG TAB PO SCH (10:22)
[2017-06-11] MEDS: METOPROLOL TARTRATE 25 MG TAB PO SCH (10:22)
[2017-06-11 12:00] VITALS: BP 103/68
[2017-06-11 16:00] VITALS: BP 111/75
[2017-06-11] MEDS: TAMSULOSIN HCL 0.4 MG CAP PO SCH (16:50)
[2017-06-11] MEDS: VANCOMYCIN 1GM/NS 250 ML 250 ML IV SCH (18:07)
[2017-06-11 20:00] VITALS: BP 135/72
[2017-06-11] MEDS: ARIPIPRAZOLE 2 MG TABLET PO SCH (21:15)
[2017-06-12] VITALS: BP 132/77
[2017-06-12 04:00] VITALS: BP 133/73
[2017-06-12 06:44] LABS: BASOPHILS # (AUTO) 0.1 (0.0-0.1); BASOPHILS % 1.6 % (0.0-1.0); EOSINOPHILS # (AUTO) 0.3 (0.0-0.4); EOSINOPHILS % 5.8 % (0.0-6.0); HEMATOCRIT 37.5 % (38.2-49.6); HEMOGLOBIN 12.5 g/dL (14.0-18.0); LYMPHOCYTES # (AUTO) 1.4 (1.0-3.2); LYMPHOCYTES % 32.9 % (18.0-39.1); MEAN CORPUSCULAR HEMOGLOBIN 32.3 pg (28-32); MEAN CORPUSCULAR HGB CONC 33.3 g/dL (31-35); MEAN CORPUSCULAR VOLUME 96.9 fL (81-99); MONOCYTES # (AUTO) 0.4 (0.2-0.8); MONOCYTES % 8.6 % (4.4-11.3); NEUTROPHILS # (AUTO) 2.2 (2.1-6.9); NEUTROPHILS % 50.6 % (38.7-80.0); PLATELET COUNT 136 x10e3/uL (140-360); RED BLOOD COUNT 3.87 x10e6/uL (4.3-5.7)
[2017-06-12 07:02] LABS: ANION GAP 9.4 mmol/L (8-16); BLOOD UREA NITROGEN 10 mg/dL (7-26); BUN/CREATININE RATIO 13 (6-25); CALCIUM 8.2 mg/dL (8.4-10.2); CARBON DIOXIDE 29 mmol/L (22-29); CHLORIDE 113 mmol/L (98-107); CREATININE, SERUM 0.78 mg/dL (0.72-1.25); EST GLOMERULAR FILTRATION RATE > 60 ML/MIN (60-); GLUCOSE 81 mg/dL (74-118); POTASSIUM 3.4 mmol/L (3.5-5.1); SODIUM 148 mmol/L (136-145)
[2017-06-12] MEDS: MEGESTROL ACETATE 40 MG TAB PO SCH ×3 (07:30→16:18)
[2017-06-12 08:00] VITALS: BP 122/76
[2017-06-12] MEDS: METOPROLOL TARTRATE 25 MG TAB PO SCH (10:19)
[2017-06-12] MEDS: LOSARTAN POTASSIUM 100 MG TAB PO SCH (10:19)
[2017-06-12] MEDS: MEMANTINE 10 MG TAB PO SCH ×2 (10:19→16:18)
[2017-06-12] MEDS: FINASTERIDE 5 MG TAB PO SCH (10:19)
[2017-06-12] MEDS: SODIUM CHLORIDE 0.9% 1000ML 1,000 ML IV SCH (10:29)
[2017-06-12] MEDS ORDERED: POTASSIUM CHLORIDE 20 MEQ TAB CR PO ONE (10:30)
[2017-06-12 12:00] VITALS: BP 132/85
[2017-06-12] MEDS: VANCOMYCIN 1GM/NS 250 ML 250 ML IV SCH (13:41)
[2017-06-12 16:00] VITALS: BP 121/66
[2017-06-12] MEDS: TAMSULOSIN HCL 0.4 MG CAP PO SCH (16:18)
[2017-06-12 20:00] VITALS: BP 127/73
[2017-06-12] MEDS: ARIPIPRAZOLE 2 MG TABLET PO SCH (21:59)
[2017-06-13] VITALS: BP 143/78
[2017-06-13] MEDS: SODIUM CHLORIDE 0.9% 1000ML 1,000 ML IV SCH ×2 (02:42→13:48)
[2017-06-13 04:00] VITALS: BP 140/77
[2017-06-13 08:00] VITALS: BP 132/81
[2017-06-13] MEDS: METOPROLOL TARTRATE 25 MG TAB PO SCH (08:11)
[2017-06-13] MEDS: LOSARTAN POTASSIUM 100 MG TAB PO SCH (08:11)
[2017-06-13] MEDS: MEGESTROL ACETATE 40 MG TAB PO SCH ×3 (08:11→15:50)
[2017-06-13] MEDS: FINASTERIDE 5 MG TAB PO SCH (08:33)
[2017-06-13] MEDS: MEMANTINE 10 MG TAB PO SCH ×2 (08:33→16:39)
[2017-06-13 12:00] VITALS: BP 109/75
[2017-06-13] MEDS: VANCOMYCIN 1GM/NS 250 ML 250 ML IV SCH (13:47)
[2017-06-13 14:23] LABS: BASOPHILS # (AUTO) 0.1 (0.0-0.1); BASOPHILS % 1.2 % (0.0-1.0); EOSINOPHILS # (AUTO) 0.2 (0.0-0.4); EOSINOPHILS % 3.5 % (0.0-6.0); HEMATOCRIT 41.1 % (38.2-49.6); HEMOGLOBIN 13.3 g/dL (14.0-18.0); LYMPHOCYTES % 24.4 % (18.0-39.1); MEAN CORPUSCULAR HEMOGLOBIN 31.6 pg (28-32); MEAN CORPUSCULAR HGB CONC 32.4 g/dL (31-35); MEAN CORPUSCULAR VOLUME 97.6 fL (81-99); MONOCYTES # (AUTO) 0.4 (0.2-0.8); MONOCYTES % 8.2 % (4.4-11.3); NEUTROPHILS # (AUTO) 2.7 (2.1-6.9); NEUTROPHILS % 62.5 % (38.7-80.0); PLATELET COUNT 153 x10e3/uL (140-360); RED BLOOD COUNT 4.21 x10e6/uL (4.3-5.7); RED CELL DISTRIBUTION WIDTH 13.2 % (11.7-14.4)
[2017-06-13 14:43] LABS: ANION GAP 8.1 mmol/L (8-16); BLOOD UREA NITROGEN 6 mg/dL (7-26); BUN/CREATININE RATIO 8 (6-25); CALCIUM 8.4 mg/dL (8.4-10.2); CARBON DIOXIDE 29 mmol/L (22-29); CHLORIDE 112 mmol/L (98-107); EST GLOMERULAR FILTRATION RATE > 60 ML/MIN (60-); GLUCOSE 125 mg/dL (74-118); POTASSIUM 4.1 mmol/L (3.5-5.1); SODIUM 145 mmol/L (136-145)
[2017-06-13] MEDS: TAMSULOSIN HCL 0.4 MG CAP PO SCH (15:50)
[2017-06-13 16:00] VITALS: BP 134/87
[2017-06-13] MEDS: ARIPIPRAZOLE 2 MG TABLET PO SCH (21:00)
[2017-06-14] MEDS: SODIUM CHLORIDE 0.9% 1000ML 1,000 ML IV SCH ×2 (01:45→15:05)
[2017-06-14] MEDS: MEGESTROL ACETATE 40 MG TAB PO SCH ×3 (07:30→16:30)
[2017-06-14 08:00] VITALS: BP 134/87
[2017-06-14 08:09] VITALS: BP 126/83
[2017-06-14] MEDS: MEMANTINE 10 MG TAB PO SCH ×2 (09:00→17:00)
[2017-06-14] MEDS: METOPROLOL TARTRATE 25 MG TAB PO SCH (09:00)
[2017-06-14] MEDS: FINASTERIDE 5 MG TAB PO SCH (09:00)
[2017-06-14] MEDS: LOSARTAN POTASSIUM 100 MG TAB PO SCH (09:00)
[2017-06-14 13:16] VITALS: BP 104/75
[2017-06-14] MEDS: VANCOMYCIN 1GM/NS 250 ML 250 ML IV SCH (14:00)
[2017-06-14] MEDS: TAMSULOSIN HCL 0.4 MG CAP PO SCH (16:30)
[2017-06-14 17:17] VITALS: BP 117/79
[2017-06-14 20:00] VITALS: BP 151/85
[2017-06-14] MEDS: ARIPIPRAZOLE 2 MG TABLET PO SCH (20:19)
[2017-06-15] VITALS: BP 151/78
[2017-06-15] MEDS: MEGESTROL ACETATE 40 MG TAB PO SCH (07:30)
[2017-06-15 08:00] VITALS: BP 114/80
[2017-06-15] MEDS: MEMANTINE 10 MG TAB PO SCH (09:00)
[2017-06-15] MEDS: LOSARTAN POTASSIUM 100 MG TAB PO SCH (09:00)
[2017-06-15] MEDS: FINASTERIDE 5 MG TAB PO SCH (09:00)
[2017-06-15 12:00] VITALS: BP 119/71
[2017-06-15] MEDS: METOPROLOL TARTRATE 25 MG TAB PO SCH (13:34)
== END 2017-06-15 12:20 | DRG 666 ==
LOC: ER 10:44 → MED/SURG2 19:26 → OBSVTOIN 05-27 12:21
PROVIDERS: ADMIT Internal Medicine; ATTEND Internal Medicine
PROC: 4A023N7 Measurement of Cardiac Sampling and Pressure, Left Heart, Percutaneous Approach (ICD-10-PCS; 2017-06-01)
PROC: B2111ZZ Fluoroscopy of Multiple Coronary Arteries using Low Osmolar Contrast (ICD-10-PCS; 2017-06-01)
PROC: B2151ZZ Fluoroscopy of Left Heart using Low Osmolar Contrast (ICD-10-PCS; 2017-06-01)
PROC: BT1D1ZZ Fluoroscopy of Right Kidney, Ureter and Bladder using Low Osmolar Contrast (ICD-10-PCS; 2017-06-02)
PROC: 0V508ZZ Destruction of Prostate, Via Natural or Artificial Opening Endoscopic (ICD-10-PCS; principal; 2017-06-02 12:00)
PROC: BT1F1ZZ Fluoroscopy of Left Kidney, Ureter and Bladder using Low Osmolar Contrast (ICD-10-PCS; 2017-06-02 12:00)
DX: T83.511A Infection and inflammatory reaction due to indwelling urethral catheter, initial encounter (principal); I50.22 Chronic systolic (congestive) heart failure; N17.9 Acute kidney failure, unspecified; I11.0 Hypertensive heart disease with heart failure; I48.91 Unspecified atrial fibrillation; I95.9 Hypotension, unspecified; N41.9 Inflammatory disease of prostate, unspecified; E86.0 Dehydration; R00.1 Bradycardia, unspecified; N40.1 Benign prostatic hyperplasia with lower urinary tract symptoms; R33.8 Other retention of urine; Z85.46 Personal history of malignant neoplasm of prostate; Y84.6 Urinary catheterization as the cause of abnormal reaction of the patient, or of later complication, without mention of misadventure at the time of the procedure; E78.5 Hyperlipidemia, unspecified; I25.10 Atherosclerotic heart disease of native coronary artery without angina pectoris; D64.9 Anemia, unspecified; I49.3 Ventricular premature depolarization; F32.9 Major depressive disorder, single episode, unspecified; F41.9 Anxiety disorder, unspecified; R06.6 Hiccough; Z79.82 Long term (current) use of aspirin; Z88.1 Allergy status to other antibiotic agents
CPT/HCPCS: 36140; 36415; 71045; 74420; 77002; 80048; 80053; 80202; 81001; 82140; 82550; 82553; 82948; 83735; 83880; 84443; 84484; 85025; 87086; 87186; 93005; 93306; 96374; 96376; 97139; 99284; G0378; J1100; J1644; J1940; J2001; J2185; J2250; J2370; J2405; J3230; J3370; J7030; Q9967

== ENCOUNTER 2017-07-30 14:16 | Inpatient (IN) | payer OTHER ==
[~2017-07-30] VITALS: Ht 175.3 cm; Wt 65.3 kg
[~2017-07-30 14:16] MED LIST: ABILIFY5 MG PO; ASPIRIN81 MG PO; ATORVASTATIN CA20 MG PO; BUPROPION XL150 MG PO; FINASTERIDE5 MG PO; FLOMAX0.4 MG PO; LOSARTAN POTASS25 MG PO; METOPROLOL SUCC25 MG PO
--- OUTSIDE RECORDS SUMMARY | 2017-07-30 14:19 | XMS REPORT | Continuity of Care Document ---
Author Author [facility] Organization [facility] Address [address] [address] Phone Unavailable Care Team Providers Care Educational Aid Name Role Phone SVETLANA DUNLAP (KRISTAN) PCP Insurance Providers Guarantor Denita Mason Address [address] [place] [address] Email [email or web address] [email or web address] [employer] Policy Number [id number] Subscriber's Name Denita Mason Relationship 18 Self / Same As Patient Group Number [id number] Group Name [employer] - Medicare Advantage [employer]is Effective Date 11 Advance Directives Directive Response Recorded Date/Time Does the patient have an advance directive? No 05/26/17 7:50pm If yes, is advance directive on file with [facility]? No 05/26/17 7:50pm If not on file with [facility] will patient provide a copy? No 05/26/17 7:50pm Do you have a Directive to Physician? No 05/26/17 12:26pm Do you have a Medical Power of Paper Baling Machine Operator? No 05/26/17 12:26pm Do you have an out of hospital Do Not Resuscitate Order? No 05/26/17 12:26pm Do you have any special needs we should be aware of? No 05/26/17 12:26pm Do you have a support person here with you today? Yes 05/26/17 12:26pm Did patient receive Notice of Privacy Practices? Yes 05/26/17 12:26pm Did patient receive patient rights and responsibilities? Yes 05/26/17 12:26pm Problems No problem information available. Medications Current Home Medications Medication Dose Units Route Directions Days Qty Instructions Start Date Aripiprazole (Abilify) 5 Mg Tablet 2 Mg Oral Daily 30 Tab Aspirin 81 Mg Tab.chew 1 Tab Oral Daily Atorvastatin Calcium 20 Mg Tablet 40 Mg Oral Bedtime 30 Tab Bupropion Hcl (Bupropion Xl) 150 Mg Tab.er.24h 1 Tab Oral Daily Finasteride 5 Mg Tablet 5 Mg Oral Daily 30 Tab Losartan Potassium 25 Mg Tablet 1 Tab Oral Daily Metoprolol Succinate 25 Mg Tab.er.24h 1 Tab Oral Daily Tamsulosin Hcl (Flomax*) 0.4 Mg Cap 0.4 Mg Oral Daily 30 Cap Social History Social History Problem Response Recorded Date/Time Onset Date Status Hx Psychiatric Problems Y - dementia 05/26/2017 7:50pm Not Applicable Not Applicable Hx Eating Disorder No 05/26/2017 7:50pm Not Applicable Not Applicable Hx Substance Use Disorder No 05/26/2017 7:50pm Not Applicable Not Applicable Hx Depression Y - chronic depression 05/26/2017 7:50pm Not Applicable Not Applicable Hx Alcohol Use Y - social 05/26/2017 7:50pm Not Applicable Not Applicable Hx Substance Use Treatment No 05/26/2017 7:50pm Not Applicable Not Applicable Hx Physical Abuse No 05/26/2017 7:50pm Not Applicable Not Applicable Smoking Status Start Date Stop Date Former smoker Hospital Discharge Instructions No hospital discharge instruction information available. Plan of Care Discharge Date 06/15/17 12:20pm Disposition [facility] Prescriptions See Medication Section Functional Status Query Response Date Recorded FUNCTIONAL STATUS ` June 04, 2017 10:20am Assistive Devices None May 26, 2017 7:50pm Ambulation Ability Standby Assistance May 26, 2017 7:50pm Toileting Ability Standby Assistance June 13, 2017 6:21pm Allergies, Adverse Reactions, Alerts Allergen Type Severity Reaction Status Last Updated Tobramycin Allergy Unknown Active 04/06/09 Immunizations No immunization information available. Vital Signs Acute Vital Signs Vital Response Date/Time Temperature (Fahrenheit) 96.9 degrees F (97.6 - 99.5) 06/15/2017 12:00pm Pulse Pulse Rate (adult) 66 bpm (60 - 90) 06/15/2017 12:00pm Respiratory Rate 18 bpm (12 - 24) 06/15/2017 12:00pm Blood Pressure 119/71 mm Hg 06/15/2017 12:00pm Height 5 ft 9 in 05/26/2017 10:50am Weight 144.01 lb 06/14/2017 8:09am Body Mass Index 21.3 kg/m^2 06/14/2017 8:09am Results Laboratory Results Test Name Result Units Flags Reference Collection Date/Time Result Date/ Time Comments White Blood Count 4.27 x10e3/uL L 4.8-10.8 06/13/2017 1:57pm 06/13/2017 2:33pm Red Blood Count 4.21 x10e6/uL L 4.3-5.7 06/13/2017 1:57pm 06/13/2017 2: 33pm Hemoglobin 13.3 g/dL L 14.0-18.0 06/13/2017 1:57pm 06/13/2017 2:33pm Hematocrit 41.1 % 38.2-49.6 06/13/2017 1:57pm 06/13/2017 2:33pm Mean Corpuscular Volume 97.6 fL 81-99 06/13/2017 1:57pm 06/13/2017 2: 33pm Mean Corpuscular Hemoglobin 31.6 pg 28-32 06/13/2017 1:57pm 06/13/2017 2:33pm Mean Corpuscular Hemoglobin Concent 32.4 g/dL 31-35 06/13/2017 1:57pm 06/13/2017 2:33pm Red Cell Distribution Width 13.2 % 11.7-14.4 06/13/2017 1:57pm 2017 2:33pm Platelet Count 153 x10e3/uL 140-360 06/13/2017 1:57pm 06/13/2017 2: 33pm Neutrophils (%) (Auto) 62.5 % 38.7-80.0 06/13/2017 1:57pm 06/13/2017 2: 33pm Lymphocytes (%) (Auto) 24.4 % 18.0-39.1 06/13/2017 1:57pm 06/13/2017 2: 33pm Monocytes (%) (Auto) 8.2 % 4.4-11.3 06/13/2017 1:57pm 06/13/2017 2: 33pm Eosinophils (%) (Auto) 3.5 % 0.0-6.0 06/13/2017 1:57pm 06/13/2017 2: 33pm Basophils (%) (Auto) 1.2 % H 0.0-1.0 06/13/2017 1:57pm 06/13/2017 2: 33pm IM GRANULOCYTES % 0.2 % 0.0-1.0 06/13/2017 1:57pm 06/13/2017 2:33pm Neutrophils # (Auto) 2.7 2.1-6.9 06/13/2017 1:57pm 06/13/2017 2:33pm Lymphocytes # (Auto) 1.0 1.0-3.2 06/13/2017 1:57pm 06/13/2017 2:33pm Monocytes # (Auto) 0.4 0.2-0.8 06/13/2017 1:57pm 06/13/2017 2:33pm Eosinophils # (Auto) 0.2 0.0-0.4 06/13/2017 1:57pm 06/13/2017 2:33pm Basophils # (Auto) 0.1 0.0-0.1 06/13/2017 1:57pm 06/13/2017 2:33pm Absolute Immature Granulocyte (auto 0.01 x10e3/uL 0-0.1 06/13/2017 1: 57pm 06/13/2017 2:33pm Urine Color YELLOW YELLOW 05/26/2017 2:40pm 05/26/2017 3:08pm Urine Clarity SL CLOUDY H CLEAR 05/26/2017 2:40pm 05/26/2017 3:08pm Urine Specific Forsan 1.025 1.010-1.025 05/26/2017 2:40pm 2017 3:08pm Urine pH 6 5 - 7 05/26/2017 2:40pm 05/26/2017 3:08pm Urine Leukocyte Esterase 1+ H NEGATIVE 05/26/2017 2:40pm 05/26/2017 3: 08pm Urine Nitrite POSITIVE H NEGATIVE 05/26/2017 2:40pm 05/26/2017 3:08pm Urine Protein 2+ H NEGATIVE 05/26/2017 2:40pm 05/26/2017 3:08pm Urine Glucose (UA) NEGATIVE NEGATIVE 05/26/2017 2:40pm 05/26/2017 3: 08pm Urine Ketones TRACE H NEGATIVE 05/26/2017 2:40pm 05/26/2017 3:08pm Urine Urobilinogen 0.2 mg/dL 0.2 - 1 05/26/2017 2:40pm 05/26/2017 3: 08pm Urine Bilirubin 1+ H NEGATIVE 05/26/2017 2:40pm 05/26/2017 3:08pm Confirmatory test currently unavailable. False positive results may occur. Urine Blood 4+ H NEGATIVE 05/26/2017 2:40pm 05/26/2017 3:08pm Urine WBC 6-10 /HPF H 0-5 05/26/2017 2:40pm 05/26/2017 3:16pm Urine RBC 21-50 /HPF H 0-5 05/26/2017 2:40pm 05/26/2017 3:16pm Urine Bacteria MANY /HPF H NONE 05/26/2017 2:40pm 05/26/2017 3:16pm Urine Epithelial Cells RARE /LPF NONE 05/26/2017 2:40pm 05/26/2017 3: 16pm Urine Mucus MODERATE H RARE 05/26/2017 2:40pm 05/26/2017 3:16pm Sodium Level 145 mmol/L 136-145 06/13/2017 1:57pm 06/13/2017 2:44pm Potassium Level 4.1 mmol/L # 3.5-5.1 06/13/2017 1:57pm 06/13/2017 2:44pm Chloride Level 112 mmol/L H 98-107 06/13/2017 1:57pm 06/13/2017 2:44pm Carbon Dioxide Level 29 mmol/L 22-29 06/13/2017 1:57pm 06/13/2017 2: 44pm Anion Gap 8.1 mmol/L 8-16 06/13/2017 1:57pm 06/13/2017 2:44pm Blood Urea Nitrogen 6 mg/dL L 7-26 06/13/2017 1:57pm 06/13/2017 2:44pm Creatinine 0.80 mg/dL 0.72-1.25 06/13/2017 1:57pm 06/13/2017 2:44pm BUN/Creatinine Ratio 8 6-25 06/13/2017 1:57pm 06/13/2017 2:44pm Estimat Glomerular Filtration Rate > 60 ML/MIN 60- 06/13/2017 1:57pm 2:44pm Ranges were taken from the National Kidney Disease Education Program and the National Kidney Foundation literature. Reference ranges: 60 or greater: Normal 16-59 (for 3 consecutive months): Chronic kidney disease 15 or less: Kidney failure Glucose Level 125 mg/dL H 74-118 06/13/2017 1:57pm 06/13/2017 2:44pm Calcium Level 8.4 mg/dL 8.4-10.2 06/13/2017 1:57pm 06/13/2017 2:44pm Bedside Glucose 66 mg/dL L 70-120 05/27/2017 6:56am 05/27/2017 7:39am Meter ID: [id number] Magnesium Level 1.9 MG/DL 1.3-2.1 06/03/2017 6:05am 06/03/2017 4:52pm Total Bilirubin 0.9 mg/dL 0.2-1.2 05/26/2017 1:20pm 05/26/2017 2:00pm Aspartate Amino Transf (AST/SGOT) 14 IU/L 5-34 05/26/2017 1:20pm 2017 2:00pm Alanine Aminotransferase (ALT/SGPT) 13 IU/L 0-55 05/26/2017 1:20pm 2:00pm Ammonia 34 UG/DL 31-123 05/26/2017 1:20pm 05/26/2017 1:52pm Total Protein 5.8 g/dL L 6.5-8.1 05/26/2017 1:20pm 05/26/2017 2:00pm Albumin 3.6 g/dL 3.5-5.0 05/26/2017 1:20pm 05/26/2017 2:00pm Globulin 2.2 g/dL L 2.3-3.5 05/26/2017 1:20pm 05/26/2017 2:00pm Albumin/Globulin Ratio 1.6 0.8-2.0 05/26/2017 1:20pm 05/26/2017 2: 00pm Alkaline Phosphatase 79 IU/L 40-150 05/26/2017 1:20pm 05/26/2017 2: 00pm B-Type Natriuretic Peptide 25.2 pg/mL 0-100 05/30/2017 10:35am 2017 11:26am Creatine Kinase 30 IU/L 30-200 05/27/2017 6:30am 05/27/2017 7:29am Creatine Kinase MB 0.80 ng/mL 0.00-5.00 05/27/2017 6:30am 05/27/2017 9: 08am Troponin I 0.025 ng/mL 0-0.300 05/27/2017 6:30am 05/27/2017 9:08am Thyroid Stimulating Hormone (TSH) 1.525 uIU/mL 0.350-4.940 05/26/2017 1: 20pm 05/26/2017 2:19pm Vancomycin Level Trough 13.7 ug/mL *H 5.0-10.0 06/12/2017 6:18am 2017 12:05pm Results called to RAJI MAX RN at 1204 on 06/12/17 by Erica Joseph. RB OK. Microbiology Results Procedure Source Organism/Result Collection Date/Time Result Date/Time Result Status Urine Culture Urine,Catheterized STAPHYLOCOCCUS EPIDERMIDIS 05/26/2017 11: 06am 05/31/2017 5:29am Final [place] [id number] Patient Name: DENITA MASON MR # :[id number] : 1945 Age/Sex: 71/M Admit Physician: TITA SALCEDO MD Admit Date: 05/27/17 Location/Room/Bed: MED/SURG2- 210-1 Discharge Date: Report: Discharge Summary CONSULTANTS: Dr. Zain Sidhu and Dr. Jules Zavala. PRIMARY CARE PHYSICIAN: Dr. Svetlana Dunlap. FINAL DIAGNOSES 1. Status post cardiac catheterization, no intervention. 2. Status post transurethral resection of the prostate secondary to enlarged prostate. 3. Urinary retention, Banerjee catheter. 4. Paroxysmal atrial fibrillation, refused anticoagulation therapy. 5. Advanced dementia with agitation. 6. Urinary tract infection, ongoing antibiotic treatment. SUMMARY: Patient is a 71-year-old male, just recently discharged from [facility] with a Banerjee catheter for a procedure plan as an outpatient with a TURP with Dr. Jules Zavala. The patient was sent to the outpatient procedure of TURP, but when he gets there, the patient was dehydrated with acute kidney injury secondary to dehydration. Patient was also with urinary tract infection as well. The patient was subsequently admitted. His EF was 30%. Therefore, cardiac clearing was obtained. The patient had a cardiac catheterization showing an ejection fraction approximately 45% to 50%. There was no intervention and no significant coronary artery disease. The patient subsequently underwent TURP and he did well. During this time, the patient continued with antibiotics IV. He does have mild dementia with agitation and at times needed medication for control. His psychiatric medication adjusted. Appetite stimulant given. Remeron initiated. Patient is doing much better now. Arrangement for the patient to go to skilled facility to continue with vancomycin for approximately 7 days. Adjustment in his medications made. He will continue with PT/OT. Encouraged oral intake. Continue with Banerjee care if needed. The patient will follow up Dr. Jules Zavala as planned. The patient again refused anticoagulant for his PAF. Job#: [id number] PAT cc: Svetlana Dunlap MD Dictated By: TITA SALCEDO MD Transcribed By: EDS on 06/09/17 <Electronically signed by TITA SALCEDO MD>06/11/17 2239 Procedures Procedure Status Date Provider(s) Cystoscopy with retrograde pyelography Completed 06/02/17 JULES ZAVALA MD TURP (transurethral resection of prostate) Completed 06/02/17 JULES ZAVALA MD Encounters Encounter Location Arrival/Admit Date Discharge/Depart Date Attending Provider Discharged Inpatient [facility] 05/27/17 12:21pm 12:20pm TITA SALCEDO MD
--- OUTSIDE RECORDS SUMMARY | 2017-07-30 14:19 | XMS REPORT | Summary of Care ---
Author Author MARIO Pitts, MIAN Organization Unknown Address [facility] Phone Unavailable Care Team Providers Care Rn Iv Therapy Name Role Phone MARIO Pitts, MIAN Unavailable Unavailable FREDIS Pitts, PAUL Unavailable Unavailable MAHOGANY SHAH W[place], ANUJA RIVERS Unavailable Unavailable MAHOGANY Pitts, ANUJA Unavailable Unavailable VERNON SHAH, JULES Cline Unavailable Unavailable Fredis SHAH, Paul Unavailable Unavailable NILS MARGO [place], NIGEL WOODS Unavailable Unavailable Justin SHAH, Sylvester Unavailable Unavailable Unavailable Unavailable Functional Status Name Dates Details Functional status health issues are not documented Status: Name Dates Details Cognitive status health issues are not documented Status: Problems Name Dates Details Medicare annual wellness visit, subsequent (V70.0, Z00.00) Status: Active Medicare annual wellness visit, subsequent (V70.0, Z00.00) Status: Active Abnormal EKG (794.31, R94.31) Status: Active Advance care planning (V65.49, Z71.89) Status: Active At low risk for fall (V49.89, Z91.81) Status: Active Constipation, acute (564.00, K59.00) Status: Active Excessive weight loss (783.21, R63.4) Status: Active Expressive aphasia (784.3, R47.01) Status: Active Mixed hyperlipidemia (272.2, E78.2) Status: Active Palpitation (785.1, R00.2) Status: Active Positive depression screening (796.4, Z13.89) Status: Active Postherpetic neuralgia (053.19, B02.29) Status: Active Urinary tract infection, site unspecified (599.0, N39.0) Status: Active Ventricular bigeminy (427.89, I49.9) Status: Active Need for pneumococcal vaccination (V03.82, Z23) Status: Active PVC (premature ventricular contraction) (427.69, I49.3) Status: Active History of urinary tract infection (V13.02, Z87.440) Status: Active Change in stool (792.1, R19.5) Status: Active Bradycardia (427.89, R00.1) Status: Active Left inguinal hernia (550.90, K40.90) Status: Active Constipation (564.00, K59.00) Status: Active Belching (787.3, R14.2) Status: Active Colon cancer screening (V76.51, Z12.11) Status: Active Lower urinary tract symptoms (LUTS) (788.99, R39.9) Status: Active Chronic depressive person (301.12, F34.1) Status: Active Low blood pressure (458.9, I95.9) Status: Active Cardiac arrhythmia (427.9, I49.9) Status: Active Cardiomyopathy (425.4, I42.9) Status: Active Benign non-nodular prostatic hyperplasia with lower urinary tract symptoms ( 600.91, N40.1) Status: Active S/P TURP (V45.89, Z90.79) Status: Active Essential (primary) hypertension (401.9, I10) Status: Active 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 * Start : 15-Feb-2013 Active BuPROPion HCl ER (XL) 300 MG Oral Tablet Extended Release 24 Hour TAKE 1 TABLET DAILY. * Quantity: 30 Refills: 0 MIAN MARTIN M.D. * Start : 19-Sep-2013 Active Tamsulosin HCl - 0.4 MG Oral Capsule TAKE 1 CAPSULE DAILY * Quantity: 90 Refills: 1 MIAN MARTIN M.D. * Start : 11-Sep-2015 Active Atorvastatin Calcium 40 MG Oral Tablet TAKE 1 TABLET AT BEDTIME. * Quantity: 90 Refills: 1 PAUL MCNEAL M.D. * Start : 18-Nov-2016 Active Losartan Potassium 100 MG Oral Tablet TAKE 1 TABLET DAILY. * Quantity: 90 Refills: 1 MIAN MARTIN M.D. * Start : 22-Jan-2017 Active Fluticasone Propionate 50 MCG/ACT Nasal Suspension USE 2 SPRAYS IN EACH NOSTRIL ONCE DAILY * Quantity: 1 Refills: 5 MIAN MARTIN M.D. * Start : 05-Apr-2017 Active 16 GM Bottle ARIPiprazole 2 MG Oral Tablet TAKE 1 TABLET DAILY DIRECTED. * Quantity: 30 Refills: 2 MIAN MARTIN M.D. * Start : 05-May-2017 Active BuPROPion HCl ER (XL) 150 MG Oral Tablet Extended Release 24 Hour TAKE 1 TABLET BY MOUTH EVERY DAY * Quantity: 30 Refills: 0 MIAN MARTIN M.D. * Start : 24-May-2017 Active Abilify 2 MG Oral Tablet * Refills: 0 Active Allergies and Adverse Reactions Name Dates Details tobramycin (Allergy) Status: Active Past Medical History Name Dates Details History of Atrial fibrillation (427.31, I48.91) Status: Resolved History of benign prostatic hypertrophy (V13.89, Z87.438) Status: Resolved History of Dysthymic Disorder (V11.2) Status: Resolved History of Elevated prostate specific antigen (PSA) (790.93, R97.20) Status: Resolved History of Herpes zoster (053.9, B02.9) Status: Resolved History of herpes zoster (V12.09, Z86.19) Status: Resolved Procedures Procedure Dates Details History of Orchiectomy Left Completed History of Umbilical Hernia Repair Completed Immunization Name Dates Details Influenza on: 09-Apr-2010 Influenza on: Feb-2013 Prevnar 13 Intramuscular Suspension Lot #: [id number] on: 11-Nov-2016 Family History Name Dates Details Family history of essential hypertension (V17.49, Z82.49) Status: Active Social History Name Dates Details - Status: Name Dates Details Never smoker Vital Signs Date Test Result Details [id number] BP Systolic 111 mm[Hg] Status: Comments: Location: LUE; Position: Sitting BP Diastolic 66 mm[Hg] Status: Comments: Location: LUE; Position: Sitting Height 70 in Status: Weight 136.5625 lb Status: Body Mass Index Calculated 19.59 kg/m2 Status: Body Surface Area Calculated 1.77 m2 Status: Temperature 98.2 f Status: Comments: Method: Temporal Heart Rate 49 /min Status: Comments: Quality: Irregular Results Date Description Value Details Results not documented Plan of Care Name Dates Details Planned Observations Planned Goals not documented Planned Encounters Appointment; PAUL MCNEAL M.D. On: 13-Jul-2017 13:20 Interventions Provided Instructions* Patient Specific Education Given; Done: 06 Jul 2017 Plan* Discussed with patient and spouse the possibility of starting palliative care. * Discussed what that means. * [facility] referral for assessment. * Encouraged hydration and small frequent meals and snacks, without forcing him to eat. * Discussed natural history of dementia, sundowning. * Schedule a follow up visit in 6 months. Instructions Name Dates Details Instructions not documented Encounters Appointment; MIAN MARTIN M.D. Encounter Diagnosis: Problem not documented On: 12-Aug-2015 11:45 Appointment; PAUL MCNEAL M.D. Encounter Diagnosis: Problem not documented On: 23-Aug-2015 13:00 Appointment; SYLVESTER FAJARDO M.D. Encounter Diagnosis: Problem not documented On: 27-Aug-2015 14:00 Appointment; MIAN MARTIN M.D. Encounter Diagnosis: Problem not documented On: 29-Aug-2015 14:00 Appointment; SYLVESTER FAJARDO M.D. Encounter Diagnosis: Problem not documented On: 30-Aug-2015 7:00 Appointment; [facility], ECHO Encounter Diagnosis: Problem not documented On: 03-Sep-2015 15:00 Appointment; [facility], HOLTER Encounter Diagnosis: Problem not documented On: 03-Sep-2015 16:00 Appointment; [facility], STRESS Encounter Diagnosis: Problem not documented On: 03-Sep-2015 16:00 Appointment; KAY NINA M.D. Encounter Diagnosis: Problem not documented On: 11-Sep-2015 12:00 Appointment; PAUL MCNEAL M.D. Encounter Diagnosis: Problem not documented On: 11-Sep-2015 15:00 Appointment; AGNIESZKA MICHEL Encounter Diagnosis: Problem not documented On: 24-Sep-2015 10:45 Appointment; MIAN MARTIN M.D. Encounter Diagnosis: Problem not documented On: 17-Oct-2015 10:00 Appointment; PAUL MCNEAL M.D. Encounter Diagnosis: Problem not documented On: 22-Nov-2015 13:00 Appointment; SYLVESTER FAJARDO M.D. Encounter Diagnosis: Problem not documented On: 28-Nov-2015 13:45 Appointment; [facility], HOLTER Encounter Diagnosis: Problem not documented On: 09-Dec-2015 15:00 Appointment; PAUL MCNEAL M.D. Encounter Diagnosis: Problem not documented On: 17-Dec-2015 15:00 Appointment; MIAN MARTIN M.D. Encounter Diagnosis: Problem not documented On: 26-Dec-2015 15:15 Appointment; MIAN MARTIN M.D. Encounter Diagnosis: Problem not documented On: 11-Nov-2016 11:30 Appointment; [facility], ECHO Encounter Diagnosis: Problem not documented On: 07-Dec-2016 13:00 Appointment; [facility], HOLTER Encounter Diagnosis: Problem not documented On: 07-Dec-2016 14:00 Appointment; PAUL MCNEAL M.D. Encounter Diagnosis: Problem not documented On: 16-Dec-2016 15:00 Appointment; MIAN MARTIN M.D. Encounter Diagnosis: Problem not documented On: 05-Apr-2017 10:00 Appointment; NIGEL WRAY P.A. Encounter Diagnosis: Problem not documented On: 15-Apr-2017 12:00 Appointment; SYLVESTER FAJARDO M.D. Encounter Diagnosis: Problem not documented On: 21-Apr-2017 9:00 Appointment; MIAN MARTIN M.D. Encounter Diagnosis: Problem not documented On: 05-May-2017 9:30 Appointment; MIAN MARTIN M.D. Encounter Diagnosis: Problem not documented On: 19-May-2017 11:45 Appointment; MIAN MARTIN M.D. Encounter Diagnosis: Problem not documented On: 06-Jul-2017 15:15
--- OUTSIDE RECORDS SUMMARY | 2017-07-30 14:19 | XMS REPORT ---
Author Author [facility] Address Unknown Phone Unavailable Care Team Providers Care Press Machine Feeder Name Role Phone TITA SALCEDO Unavailable Unavailable Problems This patient has no known problems. Allergies, Adverse Reactions, Alerts This patient has no known allergies or adverse reactions. Medications This patient has no known medications. Results Test Description Test Time Test Comments Text Results Atomic Results Result Comments ECHO COMPLETE (ECHOCARDIOGRAM) [address] [address] Patient Name : DENITA MASON MR #: [id number] : 1945 Age/Sex: 71/M Adm Physician : TITA SALCEDO MD Admit Date : 05/27/17 Location : MED/SURG2 Room/Bed : [facility] REPORT: Cardiology Report DATE OF STUDY: May 27, 2017 ECHOCARDIOGRAM M-MODE: Dilated left atrium. Top normal left ventricular size. Diminished left ventricular contractility. Normal mitral and aortic valves. No pericardial effusion. SECTOR SCAN: Dilated left atrium. Top normal left ventricular size. Diminished left ventricular contractility. Ejection fraction 30% to 35%. Mitral, aortic and tricuspid valves are grossly normal. There is no pericardial effusion. CARDIAC DOPPLER STUDY WITH COLOR: 1+ aortic regurgitation. 1 to 2+ mitral regurgitation. Trace tricuspid regurgitation. There is evidence of diastolic dysfunction. CONCLUSIONS 1. Diminished left ventricular contractility. Ejection fraction estimated at 30% to 35%. 2. Evidence of diastolic dysfunction. 3. Mild to moderate mitral regurgitation with dilated left atrium. 4. Mild aortic regurgitation. 5. Trace tricuspid regurgitation. Job#: [id number] KB cc: TITA SALCEDO MD Signature Date Dictated By: LUPE NAVARRO MD Transcribed By: VetiaryVAUGHN on 05/28/17 < Electronically signed by LUPE NAVARRO MD><<Signature on File>>06/01/17 1016 COPY TO: CHEST SINGLE (PORTABLE) [place] [address] Patient Name: DENITA MASON MR #: [id number] : 1945 Age/Sex: 71/M Req #: [id number] Adm Physician: Ordered by: DENITA VALERIO MD Report #: [id number] Location: ER Room/Bed: Procedure: [id number] DX/CHEST SINGLE (PORTABLE) Exam Date: 05/26/17 Exam Time: 1525 REPORT STATUS: Signed EXAMINATION: CHEST SINGLE (PORTABLE) INDICATION: COMPARISON: None FINDINGS: AP view TUBES and LINES: None. LUNGS: Lungs are well inflated. Lungs are clear. There is no evidence of pneumonia or pulmonary edema. PLEURA: No pleural effusion or pneumothorax. HEART AND MEDIASTINUM: The cardiomediastinal silhouette is unremarkable. BONES AND SOFT TISSUES: No acute osseous lesion. Soft tissues are unremarkable. UPPER ABDOMEN: No free air under the diaphragm. IMPRESSION: No acute thoracic abnormality. Signed by: DR. Luis Fernando Curiel MD on 05/26/2017 4:11 PM Dictated By: LUIS FERNANDO CURIEL MD 1611 Transcribed By: PACHECO on 05/26/17 1611 COPY TO: DENITA VALERIO MD
[2017-07-30] MEDS ORDERED: SODIUM CHLORIDE 0.9% 1000ML 1,000 ML IV STA (14:53)
--- NOTE | 2017-07-30 15:29 | Diagnostic Imaging Report ---
PROCEDURE: Frontal and lateral views of the chest. COMPARISON: Chest radiograph 05/26/2017 INDICATIONS: AMS FINDINGS: Lines/tubes: None. Lungs: The lungs are well inflated and clear. There is no evidence of pneumonia or pulmonary edema. Pleura: There is no pleural effusion or pneumothorax. Heart and mediastinum: Tortuous aorta. The heart and the mediastinum are normal. Bones: No acute bony abnormality. IMPRESSION: No acute cardiopulmonary disease. Dictated by: Luis Fernando Willoughby M.D. on 07/30/2017 at 15:29 Electronically approved by: Luis Fernando Willoughby M.D. on 07/30/2017 at 15:29
--- NOTE | 2017-07-30 15:51 | Diagnostic Imaging Report ---
Examination: CT head without contrast Clinical Indication: Altered mental status. Technique: Transaxial noncontrast images from the skull base through the vertex were obtained. Sagittal and coronal reformatted images were done. Comparison: None. Findings: Scalp: No abnormalities. Bones: Intact. No fractures. No blastic or lytic lesions. Brain sulci: Appropriate for patient's age. Ventricles: Normal in size and configuration. No hydrocephalus. . Extra-axial space: No abnormalities. Parenchyma: There are subtle patchy areas of low-attenuation within subcortical and periventricular white matter, nonspecific, but could represent microvascular ischemic disease. No masses, hemorrhage, or acute or chronic cortical based vascular insults. Suprasellar region: No abnormalities. Craniocervical junction: The foramen magnum is patent. No Chiari one malformation. Incidental findings: Atherosclerotic calcification of the cavernous and supraclinoid internal carotid arteries. Impression: 1. No acute intracranial abnormalities. 2. Mild chronic microvascular ischemic change. Signed by: Dr. Maria De Jesus Greenberg M.D. on 07/30/2017 3:47 PM
[2017-07-30 16:43] LABS: BASOPHILS % 0.8 % (0.0-1.0); EOSINOPHILS # (AUTO) 0.1 (0.0-0.4); EOSINOPHILS % 1.8 % (0.0-6.0); HEMATOCRIT 42.4 % (38.2-49.6); HEMOGLOBIN 14.3 g/dL (14.0-18.0); LYMPHOCYTES # (AUTO) 1.2 (1.0-3.2); MEAN CORPUSCULAR HEMOGLOBIN 32.9 pg (28-32); MEAN CORPUSCULAR HGB CONC 33.7 g/dL (31-35); MEAN CORPUSCULAR VOLUME 97.7 fL (81-99); MONOCYTES # (AUTO) 0.3 (0.2-0.8); MONOCYTES % 6.5 % (4.4-11.3); NEUTROPHILS # (AUTO) 3.5 (2.1-6.9); NEUTROPHILS % 67.7 % (38.7-80.0); PLATELET COUNT 120 x10e3/uL (140-360); RED BLOOD COUNT 4.34 x10e6/uL (4.3-5.7); RED CELL DISTRIBUTION WIDTH 13.7 % (11.7-14.4)
[2017-07-30 16:59] LABS: ALANINE AMINOTRANSFERASE < 6 IU/L (0-55); ALBUMIN 3.8 g/dL (3.5-5.0); ALBUMIN/GLOBULIN RATIO 2.1 (0.8-2.0); ALKALINE PHOSPHATASE 61 IU/L (40-150); BLOOD UREA NITROGEN 15 mg/dL (7-26); BUN/CREATININE RATIO 15 (6-25); CALCIUM 9.2 mg/dL (8.4-10.2); CARBON DIOXIDE 25 mmol/L (22-29); CHLORIDE 106 mmol/L (98-107); CREATININE, SERUM 1.03 mg/dL (0.72-1.25); EST GLOMERULAR FILTRATION RATE > 60 ML/MIN (60-); GLUCOSE 95 mg/dL (74-118); SODIUM 140 mmol/L (136-145)
[2017-07-30 17:06] LABS: CREATINE KINASE MB 1.3 ng/mL (0-5.0)
[2017-07-30 18:13] LABS: INR 1.1; PARTIAL THROMBOPLASTIN TIME 23.8 seconds (23.8-35.5); PROTHROMBIN TIME 13.4 seconds (11.9-14.5)
--- NOTE | 2017-07-30 18:42 | Diagnostic Imaging Report ---
PROCEDURE:US PELVIC (NON OB) ROBISON OR F/U COMPARISON:None. INDICATIONS:POST RESIDUAL TECHNIQUE: Grayscale transverse and sagittal transabdominal images were obtained of the bladder. FINDINGS: Bladder: Nonspecific intraluminal debris. Both ureteral jets visualized. Mild bladder trabeculations and circumferential wall thickening which may reflect detrusor hypertrophy. Prevoid volume: 283 cc Postvoid volume: 224 cc Prostate: 5.1 x 5.5 x 6.4 cm (93.6 cc), enlarged. CONCLUSION: 1. Postvoid residuals without significant interval change from prevoid bladder volume. 2. Nonspecific debris within the bladder. Recommend correlation with urinalysis. 3. Enlarged prostate. Dictated by: Luis Fernando Willoughby M.D. on 07/30/2017 at 18:42 Electronically approved by: Luis Fernando Willoughby M.D. on 07/30/2017 at 18:42
[2017-07-30] MEDS ORDERED: CEFTRIAXONE SOD 1 GM VIAL IV SCH (18:45)
[2017-07-30] MEDS ORDERED: ONDANSETRON HCL INJ 2 MG/ML VIAL IV PRN (18:45)
[2017-07-30] MEDS ORDERED: FAMOTIDINE 20 MG TAB PO ONE (18:45)
[2017-07-30] MEDS: SODIUM CHLORIDE 0.9% 1000ML 1,000 ML IV SCH (20:01)
[2017-07-30 20:06] LABS: BILIRUBIN,URINE NEGATIVE (NEGATIVE); COLOR,URINE YELLOW (YELLOW); KETONES,URINE TRACE (NEGATIVE); LEUKOCYTE ESTERASE ,URINE 1+ (NEGATIVE); NITRITE,URINE NEGATIVE (NEGATIVE); URINE UROBILINOGEN 0.2 mg/dL (0.2 - 1)
[2017-07-30 20:11] LABS: CLARITY,URINE SL CLOUDY (CLEAR); PROTEIN,URINE DIPSTICK 1+ (NEGATIVE)
[2017-07-30 20:18] LABS: BACTERIA,URINE MODERATE /HPF; HYALINE CASTS 0-1 (0-1); MUCUS,URINE FEW (RARE); RBC,URINE 21-50 /HPF (0-5)
[2017-07-30 21:14] VITALS: BP 157/74
[2017-07-30 21:48] VITALS: BP 157/74
[2017-07-30 22:00] VITALS: BP 146/82
[2017-07-31] VITALS (8 sets, daily range): BP systolic 129–153; BP diastolic 72–99
[2017-07-31] MEDS: SODIUM CHLORIDE 0.9% 1000ML 1,000 ML IV SCH ×2 (04:38→18:10)
[2017-07-31 06:50] LABS: EOSINOPHILS # (AUTO) 0.2 (0.0-0.4); EOSINOPHILS % 4.1 % (0.0-6.0); HEMATOCRIT 37.1 % (38.2-49.6); HEMOGLOBIN 12.5 g/dL (14.0-18.0); LYMPHOCYTES # (AUTO) 1.6 (1.0-3.2); LYMPHOCYTES % 38.6 % (18.0-39.1); MEAN CORPUSCULAR HEMOGLOBIN 33.2 pg (28-32); MEAN CORPUSCULAR HGB CONC 33.7 g/dL (31-35); MEAN CORPUSCULAR VOLUME 98.4 fL (81-99); MONOCYTES # (AUTO) 0.4 (0.2-0.8); MONOCYTES % 9.9 % (4.4-11.3); NEUTROPHILS # (AUTO) 1.9 (2.1-6.9); NEUTROPHILS % 46.2 % (38.7-80.0); PLATELET COUNT 138 x10e3/uL (140-360); RED BLOOD COUNT 3.77 x10e6/uL (4.3-5.7); RED CELL DISTRIBUTION WIDTH 13.7 % (11.7-14.4)
[2017-07-31 07:15] LABS: CREATINE KINASE MB 1.3 ng/mL (0-5.0)
[2017-07-31 07:32] LABS: ALANINE AMINOTRANSFERASE 6 IU/L (0-55); ALBUMIN 3.2 g/dL (3.5-5.0); ALKALINE PHOSPHATASE 55 IU/L (40-150); ANION GAP 10.3 mmol/L (8-16); BLOOD UREA NITROGEN 11 mg/dL (7-26); BUN/CREATININE RATIO 14 (6-25); CALCIUM 8.7 mg/dL (8.4-10.2); CARBON DIOXIDE 26 mmol/L (22-29); CHLORIDE 106 mmol/L (98-107); EST GLOMERULAR FILTRATION RATE > 60 ML/MIN (60-); GLUCOSE 74 mg/dL (74-118); MAGNESIUM 1.7 MG/DL (1.3-2.1); PHOSPHORUS 3.2 MG/DL (2.3-4.7); POTASSIUM 4.3 mmol/L (3.5-5.1); SODIUM 138 mmol/L (136-145)
[2017-07-31] MEDS: BUPROPION HCL 150 MG TABCR PO SCH ×3 (11:45→13:06)
[2017-07-31] MEDS: VANCOMYCIN 1GM/NS 250 ML 250 ML IV SCH (12:16)
[2017-07-31] MEDS: CEFEPIME HCL 1 GM VIAL IV SCH (12:16)
--- NOTE | 2017-07-31 13:52 | Consultation ---
DATE OF CONSULTATION: CARDIOLOGY CONSULTATION CHIEF COMPLAINT: The patient is a 71-year-old with urinary tract infection. HISTORY OF PRESENT ILLNESS: The patient is a 71-year-old who came to the emergency room with symptoms of worsening urinary tract infection. The patient has noted dysuria and suprapubic discomfort. The patient has had multiple urinary tract infections in the past. The patient has had no chest pain. No shortness of breath. No syncope. No dizziness. The patient has a history of atrial fibrillation and a cardiology consultation was called. PAST MEDICAL HISTORY: Significant for; 1. Chronic urinary tract infection. 2. Paroxysmal atrial fibrillation. SOCIAL HISTORY: The patient lives at home with his . He does not smoke, does not drink. FAMILY HISTORY: There is a family history of coronary artery disease. PHYSICAL EXAMINATION: GENERAL: The patient is an elderly man, in no obvious distress. VITAL SIGNS: Temperature of 98.8, blood pressure 150/80, pulse of 64. HEENT: The patient's cranium was normocephalic and atraumatic. Extraocular muscles were intact. Sclerae were anicteric. Pupils were equal, round, and reactive to light. NECK: Supple. No jugular venous distension. No carotid bruits. CHEST: Demonstrated rhonchi bilaterally. CARDIAC: Demonstrated normal S1 and S2 with a short 2/6 systolic murmur. ABDOMEN: Demonstrated good bowel sounds. No tenderness. No masses. EXTREMITIES: There is no clubbing, no cyanosis, and no edema. EKG: Demonstrated normal sinus rhythm with some premature atrial contractions. IMPRESSION: Patient is a 71-year-old admitted for worsening urinary tract infection. Patient has been started on IV antibiotics. The patient has some premature atrial contractions on his EKG, but there are no active cardiac issues. There is no further cardiac workup required at this time. Job#: [id number] [facility] cc:Dr. Bo Cartwright
[2017-07-31] MEDS ORDERED: MIRALAX17 GM PO (14:10)
--- NOTE | 2017-07-31 14:59 | History and Physical ---
PRIMARY CARE PHYSICIAN: . CHIEF COMPLAINT: Not eating due to side effect of Bactrim. HISTORY OF PRESENT ILLNESS: A 71-year-old male with history of recurrent urinary tract infection, enlarged prostate with recurrent urinary tract infections, was receiving Bactrim. After taking Bactrim today, the patient stopped eating. The patient also stopped taking his oral medications. The patient is otherwise stable. PAST MEDICAL HISTORY: Recurrent urinary tract infections due to enlarged prostate, history of prostate cancer, recurrent urinary tract infections, hypertension, hyperlipidemia, dementia . PAST SURGICAL HISTORY: TURP procedure. SOCIAL HISTORY: Patient does not smoke or use alcohol. He has dementia. He lives with his at home. ALLERGIES: . HOME MEDICATIONS: Reviewed. REVIEW OF SYSTEMS: As mentioned in history of present illness. PHYSICAL EXAMINATION: VITAL SIGNS: Temperature is 98, blood pressure is 129/85, pulse rate of 50, respirations 18. GENERAL: The patient is in no acute distress. He is awake. HEENT: Normocephalic, atraumatic. NECK: Supple grossly. PULMONARY: . EXTREMITIES: No cyanosis, clubbing, or edema. NEUROLOGIC: No focal deficit. LABORATORY DATA: Otherwise unremarkable. IMPRESSION: Urinary tract infection with side effect of Bactrim, the patient stopped taking this medication, but is feeling much better now. PLAN: Observation. Vancomycin 1 gram q.12. Cefepime of 1 gram IM q.12. Patient should be able to go home within 24-48 hours. Job#: [id number] [facility]
[2017-07-31 19:12] LABS: CREATINE KINASE MB 1.5 ng/mL (0-5.0)
[2017-07-31] MEDS ORDERED: METOPROLOL SUCCINATE 25 MG TAB XL PO SCH (21:00)
[2017-07-31] MEDS ORDERED: ATORVASTATIN 20 MG TAB PO SCH (21:00)
[2017-07-31] MEDS ORDERED: TAMSULOSIN HCL 0.4 MG CAP PO SCH (22:54)
[2017-08-01] MEDS: SODIUM CHLORIDE 0.9% 1000ML 1,000 ML IV SCH ×2 (00:15→10:03)
[2017-08-01] MEDS: VANCOMYCIN 1GM/NS 250 ML 250 ML IV SCH ×2 (00:15→12:11)
[2017-08-01] MEDS: CEFEPIME HCL 1 GM VIAL IV SCH ×2 (00:15→11:30)
[2017-08-01 00:22] VITALS: BP 96/56
[2017-08-01 07:37] VITALS: BP 128/84
[2017-08-01 08:18] VITALS: BP 128/84
[2017-08-01] MEDS: BUPROPION HCL 150 MG TABCR PO SCH (09:00)
[2017-08-01] MEDS ORDERED: FINASTERIDE 5 MG TAB PO SCH (09:00)
[2017-08-01] MEDS ORDERED: LOSARTAN POTASSIUM 100 MG TAB PO SCH (09:00)
[2017-08-01] MEDS ORDERED: ARIPIPRAZOLE 2 MG TABLET PO SCH (09:00)
[2017-08-01] MEDS ORDERED: ASPIRIN 81 MG CHEW TAB PO SCH (09:00)
[2017-08-01 12:10] VITALS: BP 129/67
[2017-08-01] MEDS: PHENAZOPYRIDINE HCL 100 MG TAB PO SCH ×2 (14:26→16:06)
[2017-08-01 15:40] VITALS: BP 120/63
[2017-08-01] MEDS ORDERED: CEFEPIME HCL 1 GM VIAL IV ONE (17:00)
[2017-08-01] MEDS ORDERED: VANCOMYCIN 1GM/NS 250 ML 250 ML IV ONE (17:00)
--- NOTE | 2017-11-03 19:37 | Discharge Summary ---
The patient was on observation. FINAL DIAGNOSES 1. Urinary tract infection with Bactrim outpatient antibiotic given with allergic reaction. 2. Generalized weakness and dehydration. SUMMARY: Patient is a 71-year-old female who had an allergic reaction to Bactrim due to sulfa. She had also allergic reaction to tobramycin previously. The patient was stable. She was placed in observation. The patient felt better after IV fluid rehydration and medication adjustment. She was stable. Discharged home with oral antibiotics. She will follow up with her family doctor, Dr. Svetlana Dunlap, for any adjustment of medication. The patient will continue with current antibiotics. She is stable. No further workup needed. Patient will follow up with Dr. Gould or Dr. Celio Zavala, her urologist, in approximately 1 to 2 weeks. Job#: [id number]
== END 2017-08-01 18:42 | disposition home or self-care (01) | DRG 690 ==
LOC: ER 14:16 → MED/SURG 18:38
PROVIDERS: ADMIT Internal Medicine; ATTEND Internal Medicine
DX: N39.0 Urinary tract infection, site not specified (principal); I49.1 Atrial premature depolarization; T37.0X5A Adverse effect of sulfonamides, initial encounter; R33.9 Retention of urine, unspecified; R62.7 Adult failure to thrive; R00.8 Other abnormalities of heart beat; Z87.440 Personal history of urinary (tract) infections; Z85.46 Personal history of malignant neoplasm of prostate; I48.0 Paroxysmal atrial fibrillation
CPT/HCPCS: 36415; 70450; 71046; 76857; 80053; 80202; 81001; 82550; 82553; 83605; 83735; 84100; 84484; 85025; 85610; 85730; 87040; 93005; 99284; J0692; J0696; J3370; J7030

== ENCOUNTER 2020-02-09 19:42 | Emergency (ER) | payer OTHER ==
[~2020-02-09] VITALS: Ht 175.3 cm; Wt 65.3 kg
[~2020-02-09 19:42] MED LIST changes: +MIRALAX17 GM PO
[2020-02-09] MEDS ORDERED: HALOPERIDOL LACTATE 5 MG/ML VIAL IM STA (20:03)
--- OUTSIDE RECORDS SUMMARY | 2020-02-09 20:10 | XMS REPORT | Continuity of Care Document ---
Author Author appsplit ExchangeDENITA [employer] Address Unknown Phone Unavailable Care Team Providers Care Journalist Name Role Phone [employer] Unavailable Un available Problems Problem Status Onset Date Classification Date Reported Comments Source M62.81 MUSCLE WEAKNESS (GENERALIZED) 06/16/2017 Diagnosis 06/24/2017 [facility] I48.91 UNSPECIFIED ATRIAL FIBRILLATION 06/15/2017 Diagnosis 06/24/2017 [facility] I50.9 HEART FAILURE, UNSPECIFIED 06/15/2017 Diagnosis 06/24/2017 [facility]: [facility] Retention of urine (disorder) 06/15/2017 Diagnosis 06/24/2017 [facility] I10 ESSENTIAL (PRIMARY) HYPERTENSION 06/15/2017 Diagnosis 06/24/2017 [facility] Z48.816 ENCOUNTER FOR SURGICAL AFTERCARE FOLLOWING SURGERY ON THE GENITOURINARY SYSTEM 06/15/2017 Diagnosis 06/24/2017 [facility] N40.1 BENIGN PROSTATIC HYPERPLASIA WITH LOWER URINARY TRACT SYMPTOMS 06/15/2017 Diagnosis 06/24/2017 [facility] R53.1 WEAKNESS 06/15/2017 Diagnosis 06/24/2017 [facility] I42.9 CARDIOMYOPATHY, UNSPECIFIED 06/15/2017 Diagnosis 06/24/2017 [facility] Herpes Zoster (Shingles) Active 09/14/2013 [facility] Benign Prostatic Hypertrophy A ctive 09/14/2013 [facility] Hypertension Active 09/14/2013 [facility] Postherpetic Neuralgia Active 09/14/2013 [facility] Depression With Anxiety Active 09/14/2013 [facility] Medications Medication Details Route Status Patient Instructions Ordering Provider Order Date Source Metoprolol Tartrate Tablet 25 MG Give 0.5 tablet by mouth one time a day for htn hold for SBP Less than 110 and or HR Less than 60 Oral Active 06/16/2017 [facility]: [facility] Finasteride Tablet 5 MG Give 1 tablet by mouth one time a day for urinary spasm Oral Active 06/16/2017 [facility]: [facility] Losartan Potassium Tablet 100 MG Give 1 tablet by mouth one time a day for htn hold for SBP less than 110 Oral Active 06/16/2017 [facility]: [facility] Abilify Tablet 2 MG Give 1 tab let by mouth at bedtime for depression Oral Active 06/16/2017 [facility]: [facility] Flomax Capsule 0.4 MG Give 1 c apsule by mouth in the evening for urinary spasm Oral Active 06/15/2017 [facility]: [facility] Megace Oral Suspension 40 MG/ML Give 1 ml by mouth three times a day for appetite Oral Active 06/15/2017 [facility]: [facility] Bisacodyl Tablet Delayed Release 5 MG Give 1 tablet by mouth every 24 hours as needed for constipation Oral Active 06/15/2017 [facility]: [facility] Aspirin 81 MG Oral Tablet ; St art Date: 05/23/2013 (Active) Active 05/23/2013 [facility] ALPRAZolam 0.5 MG Oral Tablet ; Start Date: 03/28/2013 (Active) Active 03/28/2013 [facility] BuPROPion HCl ER (XL) 150 MG Oral Tablet Extended Release 24 Hour ; Start Date: 03/28/2013; End Date: 05/1899 (Active) Active 03/28/2013 [facility] Finasteride 5 MG Oral Tablet ; Start Date: 02/15/2013; End Date: (Active) Active 02/15/2013 [facility] ValACYclovir HCl 1 GM Oral Tablet ; Start Date: 09/06/2012; End Date: (Active) Active 09/06/2012 [facility] PredniSONE 20 MG Oral Tablet ; Start Date: 09/06/2012; End Date: (Active) Active 09/06/2012 [facility] Gabapentin 100 MG Oral Capsule ; Start Date: 09/06/2012; End Date: (Active) Active 09/06/2012 [facility] Mupirocin 2 % External Ointment ; Start Date: 09/06/2012; End Date: (Active) Active 09/06/2012 [facility] BuPROPion HCl ER (SR) 150 MG Oral Tablet Extended Release 12 Hour ; Start Date: ; End Date: 05/1899 (Active) Inactive [facility] Valsartan-Hydrochlorothiazide 160-12.5 MG Oral Tablet ; Start Date: ; End Date: (Active) Inactive [facility] BuPROPion HCl ER (SR) 150 MG Oral Tablet Extended Release 12 Hour ; Start Date: ; End Date: 05/1899 (Active) Inactive [facility] BuPROPion HCl ER (SR) 150 MG Oral Tablet Extended Release 12 Hour (Active) A ctive [facility] Valsartan-Hydrochlorothiazide 160-12.5 MG Oral Tablet (Active) Active [facility] Allergies, Adverse Reactions, Alerts Substance Category Reaction Severity Reaction type Status Date Reported Comments Source Tobramycin 06/15/2017 [facility]: [facility] Not Known [facility] Immunizations Immunization Date Given Site Status Last Updated Comments Source pneumococcal conjugate vaccine, 13 valent 06/15/2017 Not Given [facility]: [facility] influenza, high dose seasonal, preservative-free 02/11/2017 completed [facility]: [facility] Influenza 02/16/2013 completed [facility] Influenza 04/09/2010 completed [facility] Results No Data Provided for This Section Pathology Reports No Data Provided for This Section Diagnostic Reports No Data Provided for This Section Consultation Notes No Data Provided for This Section Discharge Summaries No Data Provided for This Section History and Physicals No Data Provided for This Section Vital Signs Vital Sign Value Date Comments Source Systolic (mm Hg) 132 06/23/2017 [facility]: [facility] Diastolic (mm Hg) 87 06/23/2017 [facility]: [facility] Heart Rate 60 {beats}/min 06/23/2017 [facility]: [facility] Systolic (mm Hg) 114 06/22/2017 [facility]: [facility] [place] Diastolic (mm Hg) 63 06/22/2017 [facility]: [facility] [place] Heart Rate 72 {beats}/min 06/22/2017 [facility]: [facility] [place] Systolic (mm Hg) 125 06/21/2017 [facility]: [facility] [place] Diastolic (mm Hg) 77 06/21/2017 [facility]: [facility] [place] Heart Rate 88 {beats}/min 06/21/2017 [facility]: [facility] [place] Systolic (mm Hg) 123 06/20/2017 [facility]: [facility] [place] Diastolic (mm Hg) 80 06/20/2017 [facility]: [facility] [place] Heart Rate 87 {beats}/min 06/20/2017 [facility]: [facility] [place] Systolic (mm Hg) 123 06/20/2017 [facility]: [facility] [place] Diastolic (mm Hg) 80 06/20/2017 [facility]: [facility] [place] Systolic (mm Hg) 140 06/19/2017 [facility]: [facility] [place] Diastolic (mm Hg) 86 06/19/2017 [facility]: [facility] [place] Heart Rate 88 {beats}/min 06/19/2017 [facility]: [facility] [place] Systolic (mm Hg) 140 06/19/2017 [facility]: [facility] [place] Diastolic (mm Hg) 86 06/19/2017 [facility]: [facility] [place] Systolic (mm Hg) 124 06/17/2017 [facility]: [facility] [place] Diastolic (mm Hg) 80 06/17/2017 [facility]: [facility] [place] Heart Rate 73 {beats}/min 06/17/2017 [facility]: [facility] [place] Weight 142.9 06/17/2017 [facility] [place] Height 69 0 06/17/2017 [facility] [place] Systolic (mm Hg) 148 06/15/2017 [facility]: [facility] [place] Diastolic (mm Hg) 90 06/15/2017 [facility]: [facility] [place] Temperature Oral (F) 98.2 F 06/15/2017 [facility]: [facility] [place] Heart Rate 56 {beats}/min 06/15/2017 [facility]: [facility] [place] Respitory Rate 18 06/15/2017 [facility]: [facility] [place] Height 69 0 06/10/2017 [facility]: [facility] [place] Weight 142.9 06/10/2017 [facility]: [facility] [place] Encounters Location Location Details Encounter Type Encounter Number Reason For Visit Attending Provider ADM Date DC Date Status Source AUDIT [id number] 09/06/2012 09/06/2012 [facility] AUDIT [id number] 02/17/2013 02/17/2013 [facility] AUDIT [id number] 03/28/2013 03/28/2013 [facility] AUDIT [id number] 04/18/2013 04/18/2013 [facility] AUDIT [id number] 05/24/2013 05/24/2013 [facility] Jovanny GALE gokul: MIAN MARTIN, Status: Pen, Time: 3:30 PM [id number] 06/27/2013 05/24/2013 [facility] AUDIT [id number] 06/28/2013 06/28/2013 [facility] AUDIT [id number] 07/04/2013 07/04/2013 [facility] AUDIT [id number] 07/05/2013 07/05/2013 [facility] AUDIT [id number] 08/02/2013 08/02/2013 [facility] AUDIT [id number] 09/14/2013 09/14/2013 [facility] Procedures No Data Provided for This Section Assessment and Plan No Data Provided for This Section Plan of Care Plan of Care Date Source Follow-up visit in 3 weeks 03/28/2013 Routine 03/28/2013 [facility] Social History Social History Date Source Smoking StatusStart DateEnd Date Unknown if ever smoked 06/24/2017 3:41:00 06/10/2017 [facility]: [facility] [place] Marital History - Currently (Active) Tobacco Non-user (Active) Being A Social Drinker (Active) 09/14/2013 [facility] Family History Value Date S ource Maternal history of Hypertension (V17.49 ); (Active) 09/14/2013 [facility] Maternal history of Hypertension (V17.49 ); (Active) 08/02/2013 [facility] Maternal history of Hypertension (V17.49 ); (Active) 07/05/2013 [facility] Maternal history of Hypertension (V17.49 ); (Active) 07/04/2013 [facility] Maternal history of Hypertension (V17.49 ); (Active) 06/28/2013 [facility] Maternal history of Hypertension (V17.49 ); (Active) 05/24/2013 [facility] Maternal history of Hypertension (V17.49 ); (Active) 04/18/2013 [facility] Maternal history of Hypertension (V17.49 ); (Active) 03/28/2013 [facility] Advance Directives Order Name Results Value Date Source Advance Directives Advance Dir ectives Cardiopulmonary Resuscitation 06/23/2017 SNF: [facility] [place] [facility] Advance Directives Advance Dir ectives No Advance Directives available. 09/14/2013 [facility] Advance Directives Advance Dir ectives No Advance Directives available. 08/02/2013 [facility] Advance Directives Advance Dir ectives No Advance Directives available. 07/05/2013 [facility] Advance Directives Advance Dir ectives No Advance Directives available. 07/04/2013 [facility] Advance Directives Advance Dir ectives No Advance Directives available. 06/28/2013 [facility] Advance Directives Advance Dir ectives No Advance Directives available. 05/24/2013 [facility] Advance Directives Advance Dir ectives No Advance Directives available. 04/18/2013 [facility] Advance Directives Advance Dir ectives No Advance Directives available. 03/28/2013 [facility] Advance Directives Advance Dir ectives No Advance Directives available. 02/17/2013 [facility] Advance Directives Advance Dir ectives No Advance Directives available. 09/06/2012 [facility] Functional Status No Data Provided for This Section
--- OUTSIDE RECORDS SUMMARY | 2020-02-09 20:11 | XMS REPORT | Continuity of Care Document ---
Author Author [facility] t Organization [facility] Address [address] [place] [address] Phone Unavailable Care Team Providers Care [employer] Solutions Architect Name Role Phone MARIO SHAH, S (NS) MIAN PCP DANNY MCNEAL M.D. Attphys Unavaila ble [place]-MS, ECHO Attphys Unavailable JANELLE RAMIREZ M.D. Attphys UnavailKEKE Worthington Attphys Unavailable MIAN MARTIN M.D. Attphys Unavailable NILSNIGEL FERRER P.A. Attphys Unavailable CHANTALE MCKINLEY Attphys Unavailable TITA SALCEDO Attphys Unavailable DALY FAJARDO M.D. Attphys Unavailable [place]-MS, HOLTER Attphys Unavailable HEMATPOUR, KHASHAYAR Attphys Unavailable KAY NINA M.D. Attphys Unavailable [place]-MS, STRESS Attphys Unavailable TITA SALCEDO Admphys Unavailable Payers Payer Name Policy Type Policy Number Effective Date Expiration Date Mariah Smith [id number] 2017 00:00:00 [facility] Problems Condition Name Condition Details Condition Category Status Onset Date Resolution Date Last Treatment Date Treating Clinician Comments Source Ventricular bigeminy Bigeminy Problem Active [facility] Failure to thrive Failure to thrive Problem Active [facility] Retention of urine Urinary retention Problem Active [facility] Weakness Weakness Problem Active [facility] History of Dysthymic Disorder History of Dysthymic Disorder Problem Resolved [facility] History of ventricular tachycardia History of ventricular tachyc ardia Problem Resolved [facility] History of Atrial fibrillation History of Atrial fibrillation Probl em Resolved [facility] History of benign prostatic hypertrophy History of benign pr ostatic hypertrophy Problem Resolved [facility] History of Change in stool History of Change in stool Problem Resolved [facility] History of constipation History of constipation Problem Resolved [facility] History of Dysfunction of both eustachian tubes Histor y of Dysfunction of both eustachian tubes [facility] History of Elevated prostate specific antigen (PSA) Hi story of Elevated prostate specific antigen (PSA) Problem Resolved [facility] History of Herpes zoster History of Herpes zoster Problem Resolved [facility] History of tinea cruris History of tinea cruris Problem Resolved [facility] History of persistent cough History of persistent cough Problem Resolved [facility] History of urinary tract infection History of urinary tract infe ction Problem Resolved [facility] Advance care planning Advance care planning Problem Active [facility] Anemia Anemia Problem Active [facility] At low risk for fall At low risk for fall Problem Active [facility] Colon cancer screening Colon cancer screening Problem Active [facility] Expressive aphasia Expressive aphasia Problem Active [facility] Hematuria, microscopic Hematuria, microscopic Problem Active [facility] Left inguinal hernia Left inguinal hernia Problem Active [facility] Lower urinary tract symptoms (LUTS) Lower urinary tract symptoms (LUTS) Problem Active [facility] Mixed hyperlipidemia Mixed hyperlipidemia Problem Active [facility] Palpitation Palpitation Problem Active [facility] Postherpetic neuralgia Postherpetic neuralgia Problem Active [facility] PVC (premature ventricular contraction) PVC (premature ventr icular contraction) Problem Active [facility] S/P TURP S/P TURP Problem [facility] Vitamin B12 deficiency Vitamin B12 deficiency Problem Active [facility] Hearing loss Hearing loss Problem Active [facility] Chronic depressive person Chronic depressive person Problem Active [facility] Medicare annual wellness visit, subsequent Medicare an nual wellness visit, subsequent Problem Active [facility] Nail hypertrophy Nail hypertrophy Problem Active [facility] Body mass index (BMI) 19.9 or less, adult Body mass in dex (BMI) 19.9 or less, adult Problem Active [facility] Hypersomnolence Hypersomnolence Problem Active [facility] Nausea Nausea Problem Active [facility] Fatigue, unspecified type Fatigue, unspecified type Problem Active [facility] Bed confinement status Bed confinement status Problem Active [facility] Benign non-nodular prostatic hyperplasia with lower ur inary tract symptoms Benign non-nodular prostatic hyperplasia with lower urinary tract symptoms Problem Active [facility] Cardiomyopathy Cardiomyopathy Problem Active [facility] 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 [facility] Hypoproteinemia Hypoproteinemia Problem Active [facility] History of bradycardia History of bradycardia Problem Resolved [facility] 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 Problem Active [facility] Sensorineural hearing loss (SNHL) of lef t ear with restricted hearing of right ear Sensorineural hearing loss (SNHL) of lef t ear with restricted hearing of right ear Problem Active [facility] Right chronic serous otitis media Right chronic serous otitis me paulette Problem Active [facility] Ventricular bigeminy Ventricular bigeminy Problem Active [facility] AAA (abdominal aortic aneurysm) AAA (abdominal aortic aneurysm) Pro blem Active [facility] Herpes Zoster (Shingles) Herp es Zoster (Shingles) Active 09/14/2013 [place] [facility] Problem Active 2013-09-14 14:02: 18 Aris Nielsen Benign Prostatic Hypertrophy B enign Prostatic Hypertrophy Active 09/14/2013 [place] [facility] Problem Active 2013-09-14 14:02:18 Aris Nielsen Hypertension Hype rtension Active 09/14/2013 [place] [facility] Problem Active 2013-09-14 14:02:18 Gregory Nielsen Postherpetic Neuralgia Post herpetic Neuralgia Active 09/14/2013 [place] [facility] Problem Active 2013-09-14 14:02:18 Aris Nielsen Depression With Anxiety Depr ession With Anxiety Active 09/14/2013 [place] [facility] Problem Active 2013-09-14 14:02: 18 Aris Nielsen M62.81 MUSCLE WEAKNESS (GENERALIZED) M62.81 MUSCLE WEAKNESS (GENERALIZED) 06/16/2017 Diagnosis 06/24/2017 SNF: [facility] Diagnosis 2017-06-16 00:00:00 2017-06-24 08:40:59 2017-06 08:40:59 [facility] I48.91 UNSPECIFIED ATRIAL FIBRILLATION I48.91 UNSPECIFIED ATRIAL FIBRILLATION 06/15/2017 Diagnosis 06/24/2017 [facility]: [facility] Diagnosis 2017-06-15 00:00:00 2017-06-24 08:40 :59 2017-06-24 08:40:59 [facility] I50.9 HEART FAILURE, UNSPECIFIED I50.9 HEART FAILURE, UNSPECIFIED 06/15/2017 Diagnosis 06/24/2017 [facility]: [facility] Diagnosis 2017-06-15 00:00:00 2017-06-24 08:40:59 2017-06-24 08:40:59 [facility] I10 ESSENTIAL (PRIMARY) HYPERTENSION I10 ESSENTIAL (PRIMARY) HYPERTENSION 06/15/2017 Diagnosis 06/24/2017 SN[facility]: [facility] Diagnosis 2017-06-15 00:00:00 2017-06-24 08:40:59 2017-06 08:40:59 Aris Nielsen Z48.816 ENCOUNTER FOR SURGICAL AFTERCARE FOLLOWING SURGERY ON THE GENITOURINARY SYSTEM Z48.816 ENCOUNTE R FOR SURGICAL AFTERCARE FOLLOWING SURGERY ON THE GENITOURINARY SYSTEM 06/15/2017 Diagnosis 06/24/2017 [facility]: [facility] Diagnosis 2017-06-15 00:0 0:00 2017-06-24 08:40:59 2017-06-24 08:40:59 Aris sebastian N40.1 BENIGN PROSTATIC HYPERPLASIA WITH LOWER URINARY TRACT SYMPTOMS N40.1 BENIGN PROSTATIC HYPERPLASIA WITH LOWER URINARY TRACT SYMPTOMS 06/15/2017 Diagnosis 06/24/2017 [facility]: [facility] Diagnosis 2017-06-15 00:00:00 2017-06-24 08:40:59 2017-06-24 08:40:59 Aris Nielsen R53.1 WEAKNESS R53. 1 WEAKNESS 06/15/2017 Diagnosis 06/24/2017 [facility]: [facility] Diagnosis 6 00:00:00 2017-06-24 08:40:59 2017-06-24 08:40:59 Aris Nielsen I42.9 CARDIOMYOPATHY, UNSPECIFIED I42.9 CARDIOMYOPATHY, UNSPECIFIED 06/15/2017 Diagnosis 06/24/2017 [facility]: [facility] Diagnosis 2017-06-15 00:00:00 2017-06-24 08:40:59 2017-06-24 08:40:59 Aris Nielsen Allergies, Adverse Reactions, Alerts Allergy Name Allergy Type Status Severity Reaction(s) Onset Date Inacti ve Date Treating Clinician Comments Source Tobramycin Tobramycin Active 2017-06-15 00:00:00 Aris Nielsen Tobramycin Allergy to Substance Active 2009-04-06 00:00:00 [facility] tobramycin Allergy to drug (finding) Active [facility] Not Known Not Known Active Gregory Nielsen Family History Family Member Diagnosis Comments Start Date Stop Date Source Mother Family history of essential hypertension [facility] Unknown Family Member Family History 2013-03-28 21:47:13 2 21:47:13 Aris Nielsen Social History Social Habit Start Date Stop Date Quantity Comments Source Social History 2013-09-14 14:02:18 2013-09-14 14:02:18 Aris Nielsen Smoking Status Start Date Stop Date Source Never smoked tobacco (finding) [facility] Medications Ordered Medication Name Filled Medication Name Start Date Stop Da te Current Medication? Ordering Clinician Indication Dosage Frequency Signature (SIG) Comments Components Source Vitamin B-12 1000 MCG Sublingual Tablet Sublingual Vit singer B-12 1000 MCG Sublingual Tablet Sublingual 2017-08-18 00:00:00 Yes NIGEL HUNT P.APaulie Dissolve 1 tablet sublingually once daily [facility] Metoprolol Tartrate Tablet 25 MG 2017-06-16 13:00:00 Yes Give 0.5 tablet by mouth one time a day for htn hold for SBP Less than 110 and or HR Less than 60 Aris Nielsen Finasteride Tablet 5 MG 2017-06-16 13:00:00 Yes Give 1 tablet by mouth one time a day for urinary spasm Ricky Nielsen Losartan Potassium Tablet 100 MG 2017-06-16 13:00:00 Yes Give 1 tablet by mouth one time a day for htn hold for SBP less than 110 Aris Nielsen Abilify Tablet 2 MG 2017-06-16 01:00:00 Yes Give 1 tablet by mouth at bedtime for depression Aris Bella nn Flomax Capsule 0.4 MG 2017-06-15 22:00:00 Yes Give 1 capsule by mouth in the evening for urinary spasm Ricky Nielsen Megace Oral Suspension 40 MG/ML 2017-06-15 21:00:00 Yes Give 1 ml by mouth three times a day for appetite [facility] Bisacodyl Tablet Delayed Release 5 MG 2017-06-15 19:00:00 Y es Give 1 tablet by mouth every 24 hours as needed for constipation Aris Nielsen Tamsulosin HCl - 0.4 MG Oral Capsule Tamsulosin HCl - 0.4 MG Oral Capsule 2015-09-11 00:00:00 Yes MIAN MARTIN M.D. 1 QD FAISAL E 1 CAPSULE DAILY [facility] BuPROPion HCl ER (SR) 150 MG Oral Tablet Extended Release 12 Hour 2013-08-02 15:21:57 Yes (Active) Emily Nielsen Valsartan-Hydrochlorothiazide 160-12.5 MG Oral Tablet 2013-07-05 23:17:02 Yes (Active) Aris Bella nn Aspirin 81 MG Oral Tablet 2013-05-23 06:00:00 Yes ; Start Date: 05/23/2013 (Active) Aris Nielsen ALPRAZolam 0.5 MG Oral Tablet 2013-03-28 06:00:00 Yes ; Start Date: 03/28/2013 (Active) Aris Nielsen BuPROPion HCl ER (XL) 150 MG Oral Tablet Extended Release 24 Hour 2013-03-28 06:00:00 Yes ; Start Date: 3; End Date: (Active) Aris Nielsen Finasteride 5 MG Oral Tablet 2013-02-15 05:00:00 Yes ; Start Date: 02/15/2013; End Date: (Active) Aris Nielsen Finasteride 5 MG Oral Tablet Finasteride 5 MG Oral Tablet 00:00:00 Yes MIAN MARTIN M.D. TAKE 1 TABLET BY MOUTH JOANNE VILA [facility] ValACYclovir HCl 1 GM Oral Tablet 2012-09-06 05:00:00 Yes ; Start Date: 09/06/2012; End Date: (Active) Aris Nielsen PredniSONE 20 MG Oral Tablet 2012-09-06 05:00:00 Yes ; Start Date: 09/06/2012; End Date: (Active) Aris Nielsen Gabapentin 100 MG Oral Capsule 2012-09-06 05:00:00 Yes ; Start Date: 09/06/2012; End Date: (Active) Aris Nielsen Mupirocin 2 % External Ointment 2012-09-06 05:00:00 Yes ; Start Date: 09/06/2012; End Date: (Active) Aris Nielsen BuPROPion HCl ER (SR) 150 MG Oral Tablet Extended Release 12 Hour Yes ; Start Date: 0; End Date: (Active) Aris Nielsen Valsartan-Hydrochlorothiazide 160-12.5 MG Oral Tablet Yes ; Start Date: ; End Date: 05/1899 (Active) Aris Nielsen BuPROPion HCl ER (SR) 150 MG Oral Tablet Extended Release 12 Hour Yes ; Start Date: 0; End Date: (Active) Aris Nielsen Aripiprazole (Abilify) 5 Mg Tablet Aripiprazole (Abilify) 5 Mg Tablet Yes 2 Daily [facility] Aspirin 81 Mg Tab.chew Aspirin 81 Mg Tab.chew Yes 1 Daily [facility] Finasteride 5 Mg Tablet Finasteride 5 Mg Tablet Yes 5 Daily [facility] Polyethylene Glycol 3350 (Miralax) 17 Gm Powd.pack Americo yethylene Glycol 3350 (Miralax) 17 Gm Powd.pack Yes .5 Daily [facility] Tamsulosin Hcl (Flomax*) 0.4 Mg Cap Tamsulosin Hcl (Flomax*) 0.4 Mg C ap Yes .4 Daily [facility] Aspirin Low Dose 81 MG TABS Aspirin Low Dose 81 MG TABS Yes 1 QD TAKE 1 TABLET DAILY. [facility] Cranberry CAPS Cranberry CAPS Yes 4200 mg--2 caps per day [facility] Ondansetron HCl - 4 MG Oral Tablet Ondansetron HCl - 4 MG Oral Tablet Yes MIAN BORTOLOTTI M.D. 1 Q0.5D TAKE 1 TAB LET Twice daily PRN nausea or vomiting [facility] Escitalopram Oxalate 20 MG Oral Tablet Escitalopram Oxalate 20 M G Oral Tablet Yes 1 QD TAKE 1 TABLET DAILY [facility] Folic Acid 1 MG Oral Tablet Folic Acid 1 MG Oral Tablet Yes 1 QD TAKE 1 TABLET DAILY. [facility] Bupropion Hcl (Bupropion Xl) 150 Mg Tab.er.24h, 1 Tab Oral Bupropion Hcl (Bupropion Xl) 150 Mg Tab.er.24h, 1 Tab Oral 2017-08-01 00:00:00 No 1 Daily [facility] Immunizations Ordered Immunization Name Filled Immunization Name Date Status Comments Source Fluzone High-Dose 0.5 ML Intramuscular Suspension Prefilled Syringe 2019-02-14 15:17:00 Completed [facility] Fluzone High-Dose 0.5 ML Intramuscular Suspension Prefilled Syringe 2018-02-17 16:17:00 Completed [facility] Fluzone High-Dose 0.5 ML Intramuscular Suspension Prefilled Syringe 2017-03-10 00:00:00 Completed [facility] Prevnar 13 Intramuscular Suspension 2016-11-11 12:33:00 Co mpleted [facility] Influenza 2010-04-09 00:00:00 Completed [facility] Influenza Unknown Completed [facility] Pneumovax 23 25 MCG/0.5ML Injection Injectable Unknown Completed [facility] Vital Signs Vital Name Observation Time Observation Value Comments Source Systolic blood pressure 2019-12-19 12:44:00 111 mm[Hg] Loca tion: LUE; Position: Sitting [facility] Diastolic blood pressure 2019-12-19 12:44:00 74 mm[Hg] Loc ation: LUE; Position: Sitting [facility] Body height 2019-12-19 12:44:00 70 [in_us] [facility] Weight 2019-12-19 12:44:00 147.25 [lb_av] [facility] Body mass index (BMI) [Ratio] 2019-12-19 12:44:00 21.13 kg/m2 [facility] Body temperature 2019-12-19 12:44:00 97.3 [degF] Method: Oral [facility] Heart Rate 2019-12-19 12:44:00 91 /min Location: L Radial; Q uality: Normal [facility] Body temperature 2019-11-17 15:02:00 98.2 [degF] Method: Temporal [facility] Systolic blood pressure 2019-10-17 15:36:00 102 mm[Hg] Loca tion: LUE; Position: Sitting [facility] Diastolic blood pressure 2019-10-17 15:36:00 66 mm[Hg] Loc ation: LUE; Position: Sitting [facility] Body height 2019-10-17 15:36:00 70 [in_us] [facility] Weight 2019-10-17 15:36:00 138.125 [lb_av] [facility] Body mass index (BMI) [Ratio] 2019-10-17 15:36:00 19.82 kg/m2 [facility] Body temperature 2019-10-17 15:36:00 98.4 [degF] Method: Temporal [facility] Heart Rate 2019-10-17 15:36:00 88 /min Location: L Brachial Artery; [facility] Respiratory rate 2019-10-17 15:36:00 16 /min Quality[facility] Systolic 2019-06-08 09:43:00 116 mm[Hg] Location: DAVE; Positi on: Sitting [facility] BP Diastolic 2019-06-08 09:43:00 78 mm[Hg] Location: DAVE; Positi on: Sitting [facility] Height 2019-06-08 09:43:00 70 [in_us] [facility] Weight 2019-06-08 09:43:00 140.1875 [lb_av] [facility] Body Mass Index Calculated 2019-06-08 09:43:00 20.11 kg/m2 [facility] Temperature 2019-06-08 09:43:00 97.1 [degF] Method: Temporal [facility] Heart Rate 2019-06-08 09:43:00 83 /min Location: L Brachial Artery; [facility] Respiration Rate 2019-06-08 09:43:00 16 /min [facility] Temperature 2019-02-14 15:17:00 98.5 [degF] Method: Temporal [facility] BP Systolic 2018-12-21 14:13:00 97 mm[Hg] Location: LUE; Positi on: Sitting [facility] BP Diastolic 2018-12-21 14:13:00 63 mm[Hg] Location: LUE; Positi on: Sitting [facility] Height 2018-12-21 14:13:00 70 [in_us] [facility] Weight 2018-12-21 14:13:00 136 [lb_av] [facility] Body Mass Index Calculated 2018-12-21 14:13:00 19.51 kg/m2 [facility] Temperature 2018-12-21 14:13:00 98.4 [degF] Method: Temporal [facility] Respiration Rate 2018-12-21 14:13:00 14 /min [facility] Heart Rate 2018-12-21 14:13:00 45 /min [facility] BP Systolic 2018-08-17 15:15:00 110 mm[Hg] Location: LUE; Positi on: Sitting [facility] BP Diastolic 2018-08-17 15:15:00 60 mm[Hg] Location: LUE; Positi on: Sitting [facility] Height 2018-08-17 15:15:00 70 [in_us] [facility] Weight 2018-08-17 15:15:00 145 [lb_av] [facility] Body Mass Index Calculated 2018-08-17 15:15:00 20.81 kg/m2 [facility] Heart Rate 2018-08-17 15:15:00 56 /min Location: Apical; Jamari lity: Irregular [facility] BP Systolic 2018-06-20 14:21:00 112 mm[Hg] Location: LUE; Positi on: Sitting [facility] BP Diastolic 2018-06-20 14:21:00 66 mm[Hg] Location: LUE; Positi on: Sitting [facility] Heart Rate 2018-06-20 14:21:00 86 /min [facility] Height 2018-06-20 14:13:00 70 [in_us] [facility] Weight 2018-06-20 14:13:00 147 [lb_av] [facility] Body Mass Index Calculated 2018-06-20 14:13:00 21.09 kg/m2 [facility] Temperature 2018-06-20 14:13:00 98 [degF] Method: [facility] Respiration Rate 2018-06-20 14:13:00 17 /min Quality: Normal [facility] BP Systolic 2018-02-17 16:01:00 138 mm[Hg] Location: GENNYE; Positi on: Sitting [facility] BP Diastolic 2018-02-17 16:01:00 73 mm[Hg] Location: DAVE; Positi on: Sitting [facility] Height 2018-02-17 16:01:00 70 [in_us] [facility] Weight 2018-02-17 16:01:00 139.5625 [lb_av] [facility] Body Mass Index Calculated 2018-02-17 16:01:00 20.03 kg/m2 [facility] Temperature 2018-02-17 16:01:00 97.5 [degF] Method: Temporal [facility] Respiration Rate 2018-02-17 16:01:00 16 /min [facility] Heart Rate 2018-02-17 16:01:00 93 /min [facility] BP Systolic 2017-12-27 14:24:00 96 mm[Hg] Location: LUE; Positi on: Sitting [facility] BP Diastolic 2017-12-27 14:24:00 67 mm[Hg] Location: DAVE; Positi on: Sitting [facility] Height 2017-12-27 14:24:00 70 [in_us] [facility] Weight 2017-12-27 14:24:00 139.5 [lb_av] [facility] Body Mass Index Calculated 2017-12-27 14:24:00 20.02 kg/m2 [facility] Temperature 2017-12-27 14:24:00 97.9 [degF] Method: Temporal [facility] Heart Rate 2017-12-27 14:24:00 42 /min [facility] Respiration Rate 2017-12-27 14:24:00 16 /min [facility] BP Systolic 2017-08-17 15:06:00 125 mm[Hg] Location: LUE; Positi on: Sitting [facility] BP Diastolic 2017-08-17 15:06:00 78 mm[Hg] Location: LUE; Positi on: Sitting [facility] Height 2017-08-17 15:06:00 70 [in_us] [facility] Weight 2017-08-17 15:06:00 138.6 [lb_av] [facility] Body Mass Index Calculated 2017-08-17 15:06:00 19.89 kg/m2 [facility] Heart Rate 2017-08-17 15:06:00 93 /min [facility] BP Systolic 2017-08-06 11:56:00 116 mm[Hg] Location: LUE; Positi on: Sitting [facility] BP Diastolic 2017-08-06 11:56:00 57 mm[Hg] Location: DAVE; Positi on: Sitting [facility] Height 2017-08-06 11:56:00 70 [in_us] [facility] Physicians Weight 2017-08-06 11:56:00 142.0625 [lb_av] [facility] Body Mass Index Calculated 2017-08-06 11:56:00 20.38 kg/m2 [facility] Temperature 2017-08-06 11:56:00 97.9 [degF] Method: Temporal [facility] Heart Rate 2017-08-06 11:56:00 72 /min Quality: Irregular [facility] [place] [facility] Respiration Rate 2017-08-06 11:56:00 16 /min [facility] BP Systolic 2017-07-06 15:38:00 111 mm[Hg] Location: GENNYE; Positi on: Sitting [facility] BP Diastolic 2017-07-06 15:38:00 66 mm[Hg] Location: DAVE; Positi on: Sitting [facility] Height 2017-07-06 15:38:00 70 [in_us] [facility]i [facility] Weight 2017-07-06 15:38:00 136.5625 [lb_av] [facility] Body Mass Index Calculated 2017-07-06 15:38:00 19.59 kg/m2 [facility] Temperature 2017-07-06 15:38:00 98.2 [degF] Method: Temporal [facility] Heart Rate 2017-07-06 15:38:00 49 /min Quality: Irregular [facility] [place] [facility] Systolic (mm Hg) 2017-06-23 14:57:25 Gregory rial [place] Diastolic (mm Hg) 2017-06-23 14:57:25 Mem orial [facility] Heart Rate 2017-06-23 14:57:25 60 /min [facility] Systolic (mm Hg) 2017-06-22 14:47:51 Gregory rial [place] Diastolic (mm Hg) 2017-06-22 14:47:51 Mem [facility] [place] Heart Rate 2017-06-22 14:47:51 72 /min [facility] Systolic (mm Hg) 2017-06-21 14:56:41 Gregory rial [place] Diastolic (mm Hg) 2017-06-21 14:56:41 Mem orial [place] Heart Rate 2017-06-21 14:56:41 88 /min [facility] Systolic (mm Hg) 2017-06-20 16:40:49 Gregory rial [place] Diastolic (mm Hg) 2017-06-20 16:40:49 Mem orial [place] Heart Rate 2017-06-20 16:40:49 87 /min [facility] Systolic (mm Hg) 2017-06-20 16:40:35 Gregory rial [place] Diastolic (mm Hg) 2017-06-20 16:40:35 Mem [facility] [place] Systolic (mm Hg) 2017-06-19 18:11:53 Gregory rial [place] Diastolic (mm Hg) 2017-06-19 18:11:53 Mem orial [place] Heart Rate 2017-06-19 18:11:53 88 /min [facility] Systolic (mm Hg) 2017-06-19 18:11:21 Gregory rial [place] Diastolic (mm Hg) 2017-06-19 18:11:21 Mem orial [place] Systolic (mm Hg) 2017-06-17 16:49:20 Gregory [facility] [place] Diastolic (mm Hg) 2017-06-17 16:49:20 Mem [facility] [place] Heart Rate 2017-06-17 16:49:20 73 /min [facility] [place] Weight 2017-06-17 13:32:00 [facility] Height 2017-06-17 13:32:00 [facility] [place] Systolic (mm Hg) 2017-06-15 17:45:00 Gregory rial [place] Diastolic (mm Hg) 2017-06-15 17:45:00 Mem orial [place] Temperature Oral (F) 2017-06-15 17:45:00 98.2 F [facility] [place] Heart Rate 2017-06-15 17:45:00 56 /min [facility] Respitory Rate 2017-06-15 17:45:00 Memori al [facility] Height 2017-06-10 00:00:00 [facility] [place] Weight 2017-06-10 00:00:00 [facility] [place] BP Systolic 2017-05-19 12:07:00 78 mm[Hg] Location: LUE; Positi on: Sitting [facility] BP Diastolic 2017-05-19 12:07:00 48 mm[Hg] Location: LUE; Positi on: Sitting [facility] Height 2017-05-19 12:07:00 70 [in_us] Universi ty [facility] Weight 2017-05-19 12:07:00 151.3125 [lb_av] Univ [facility] Body Mass Index Calculated 2017-05-19 12:07:00 21.71 kg/m2 [facility] Temperature 2017-05-19 12:07:00 97.5 [degF] Method: Temporal Univ [facility] Respiration Rate 2017-05-19 12:07:00 16 /min [facility] Heart Rate 2017-05-19 12:07:00 40 /min [facility] BP Systolic 2017-05-05 09:41:00 132 mm[Hg] Location: LUE; Positi on: Sitting [facility] BP Diastolic 2017-05-05 09:41:00 81 mm[Hg] Location: LUE; Positi on: Sitting [facility] Height 2017-05-05 09:41:00 70 [in_us] [facility] Weight 2017-05-05 09:41:00 156.0625 [lb_av] [facility] Body Mass Index Calculated 2017-05-05 09:41:00 22.39 kg/m2 [facility] Temperature 2017-05-05 09:41:00 97.3 [degF] Method: Temporal [facility] Respiration Rate 2017-05-05 09:41:00 16 /min [facility] Heart Rate 2017-05-05 09:41:00 72 /min [facility] BP Systolic 2017-04-21 09:00:00 156 mm[Hg] Location: LUE; Positi on: Sitting [facility] BP Diastolic 2017-04-21 09:00:00 94 mm[Hg] Location: GENNYE; Positi on: Sitting [facility] Height 2017-04-21 09:00:00 70 [in_us] [facility] Weight 2017-04-21 09:00:00 162.6 [lb_av] [facility] Body Mass Index Calculated 2017-04-21 09:00:00 23.33 kg/m2 [facility] Temperature 2017-04-21 09:00:00 98.4 [degF] Method: Oral [facility] Heart Rate 2017-04-21 09:00:00 77 /min Location: L Brachial Artery; [facility] Respiration Rate 2017-04-21 09:00:00 18 /min [facility] Heart Rate 2017-04-15 12:41:00 51 /min [facility] BP Systolic 2017-04-15 12:35:00 132 mm[Hg] Location: GENNYE; Positi on: Sitting [facility] BP Diastolic 2017-04-15 12:35:00 71 mm[Hg] Location: LUE; Positi on: Sitting [facility] Heart Rate 2017-04-15 12:35:00 42 /min [facility] Height 2017-04-15 12:35:00 70 [in_us] [facility] Body Mass Index Calculated 2017-04-15 12:35:00 23.53 kg/m2 [facility] Weight 2017-04-15 12:28:00 164 [lb_av] [facility] Body Mass Index Calculated 2017-04-15 12:28:00 23.53 kg/m2 [facility] BP Systolic 2017-04-05 10:12:00 142 mm[Hg] Location: GENNYE; Positi on: Sitting [facility] BP Diastolic 2017-04-05 10:12:00 70 mm[Hg] Location: LUE; Positi on: Sitting [facility] Height 2017-04-05 10:12:00 70 [in_us] [facility] Weight 2017-04-05 10:12:00 171.5 [lb_av] [facility] Body Mass Index Calculated 2017-04-05 10:12:00 24.61 kg/m2 [facility] Temperature 2017-04-05 10:12:00 97.7 [degF] Method: Temporal [facility] Heart Rate 2017-04-05 10:12:00 52 /min Quality: Irregular Un [facility] Respiration Rate 2017-04-05 10:12:00 16 /min [facility] Procedures Procedure Date / Time Performed Performing Clinician Sour e [N] 2D Echo complete, with Doppler [id number] 2019-12-19 00:00:00 [facility] [QL] CULTURE, URINE, ROUTINE 2019 00:00:00 [facility] [] URINALYSIS, COMPLETE 2019 00:00:00 Un [facility] [N] 2D Echo complete, with Doppler [id number] 2019-09-29 00:00:00 [facility] EKG (In Office) 2019-06-08 00:00:00 [facility] [[facility]] CBC (INCLUDES DIFF/PLT) 2019-06-08 00:00:00 [facility] [[facility]] BASIC METABOLIC PANEL W/EGFR 2019-06-08 00:00:00 [facility] [[facility]] TSH, 3RD GENERATION 2019-06-08 00:00:00 Un [facility] [[facility]] HEPATIC FUNCTION PANEL 2019-06-08 00:00:00 [facility] [[facility]] HEPATITIS C ANTIBODY 2019-06-08 00:00:00 U [facility] [[facility]] URINALYSIS, COMPLETE W/REFLEX TO CULTURE 2019-06-06 00:00: 00 [facility] [[facility]] CMP W/EGFR 2018-09-02 00:00:00 [facility] [[facility]] CBC (INCLUDES DIFF/PLT) 2018-09-02 00:00:00 [facility] [[facility]] URINALYSIS, COMPLETE 2018-09-02 00:00:00 U [facility] [[facility]] CULTURE, URINE, ROUTINE 2018-09-02 00:00:00 [facility] [N] 2D Echo complete, with Doppler [id number] 2018-08-17 00:00:00 [facility] [QLH] URINALYSIS, COMPLETE 2017-11-26 00:00:00 U [facility] [QL] CULTURE, URINE, ROUTINE 2017-11-26 00:00:00 [facility] [QLH] CMP W/EGFR 2017-08-18 00:00:00 [facility] [QLH] VITAMIN B12 2017-08-18 00:00:00 [facility] [QL] CBC (INCLUDES DIFF/PLT) 2017-08-06 00:00:00 [facility] [QL] FOLATE, SERUM 2017-08-06 00:00:00 [facility] [QLH] IRON AND TOTAL IRON BINDING CAPACITY 2017-08-06 00:00:00 [facility] [QL] VITAMIN B12 2017-08-06 00:00:00 [facility] [QL] CMP W/EGFR 2017-08-06 00:00:00 [facility] [QL] LIPID PANEL 2017-08-06 00:00:00 [facility] [QL] URINALYSIS, COMPLETE 2017-08-06 00:00:00 U [facility] [QL] CULTURE, URINE, ROUTINE 2017-08-06 00:00:00 [facility] Computed tomography of brain without radiopaque contrast 201 12-10-22 00:00:00 [facility] X-ray of chest, two views 2017-07-30 00:00:00 SHREVE CHANTALE I [facility] Ultrasound examination of pelvis, limited or follow-up 07-30 00:00:00 SHREVE CHANTALE [facility] Cystoscopy with retrograde pyelography 2017-06-02 00:00:00 JULES MAYA [facility] TURP (transurethral resection of prostate) 2017-06-02 00:00:00 JULES MATTHEWS [facility] Colonoscopy 2017-04-23 00:00:00 [place] [facility] Hemoccult ICT 2017-04-21 00:00:00 [place] [facility] [O] Urine Dipstick (In Office) 2017-04-05 00:00:00 [facility] [QLH] CULTURE, URINE, ROUTINE 2017-04-05 00:00:00 [facility] [QL] CBC (INCLUDES DIFF/PLT) 2017-04-05 00:00:00 University [facility] [QL] CMP W/EGFR 2017-04-05 00:00:00 [facility] XRAY Chest 2 views [id number] 2017-04-05 00:00:00 Uni versity [facility] History [facility] History of Umbilical Hernia Repair [facility] Plan of Care Planned Activity Planned Date Details Comments Source Diagnostic Test Pending 2019-12-19 00:00:00 [N] 2D Echo comp lete, with Doppler 24037 [code = [N] 2D Echo complete, with Doppler 80312] [facility] Diagnostic Test Pending 2019-09-29 00:00:00 [N] 2D Echo comp lete, with Doppler 24382 [code = [N] 2D Echo complete, with Doppler 06093] [facility] Diagnostic Test Pending 2019-08-09 00:00:00 [N] 2D Echo comp lete, with Doppler 43502 [code = [N] 2D Echo complete, with Doppler 13110] [facility] Diagnostic Test Pending 2017-10-18 00:00:00 [QLH] CMP W/EGFR [code = [QLH] CMP W/EGFR] [facility] Diagnostic Test Pending 2017-10-18 00:00:00 [QLH] VITAMIN B1 2 [code = [QLH] VITAMIN B12] [facility] ns Diagnostic Test Pending 2017-08-13 00:00:00 [QLH] URINALYSIS , COMPLETE [code = [QLH] URINALYSIS, COMPLETE] [facility]ic ians Diagnostic Test Pending 2017-08-13 00:00:00 [QLH] CULTURE, U RINE, ROUTINE [code = [QLH] CULTURE, URINE, ROUTINE] [facility] Diagnostic Test Pending 2017-08-13 00:00:00 [QLH] URINALYSIS , COMPLETE [code = [QLH] URINALYSIS, COMPLETE] [facility]ic ians Diagnostic Test Pending 2017-08-13 00:00:00 [QLH] CULTURE, U RINE, ROUTINE [code = [QLH] CULTURE, URINE, ROUTINE] [facility]ys[facility] Diagnostic Test Pending 2017-08-13 00:00:00 [QLH] URINALYSIS , COMPLETE [code = [QLH] URINALYSIS, COMPLETE] [facility] i[facility] Diagnostic Test Pending 2017-08-13 00:00:00 [QLH] CULTURE, U RINE, ROUTINE [code = [QLH] CULTURE, URINE, ROUTINE] [facility] Diagnostic Test Pending 2017-04-27 00:00:00 Colonoscopy [code = 737 92098] [facility] Diagnostic Test Pending 2017-04-27 00:00:00 Colonoscopy [code = 737 41847] [facility] Future Scheduled Test 2013-03-28 21:47:13 Plan of Care [code = 1877 6-5] [facility] Appointment 2021-01-22 14:20:00 Gisselle DELGADO [facility] Encounters Start Date/Time End Date/Time Encounter Type Admission Type Attendi [facility] Care Department Encounter ID Source 2020-01-24 16:00:00 2020-01-24 16:00:00 Appointment; DANNY JOHNSON M.D. CHARITAKIS, KONSTANTINOS, M.D. [facility], [facility] [id number] [facility] 2020-01-24 15:00:00 2020-01-24 15:00:00 Appointment; YVETTENaomi BISHOPDARIO, SIXTO [facility] [id number] [facility] 2019-12-19 12:20:00 2019-12-19 12:20:00 Appointment; DANNY JOHNSON M.D. CHARITAKIS, KONSTANTINOS, M.D. [facility], [address] [id number] [facility] 2019-11-17 15:00:00 2019-11-17 15:00:00 Appointment; JANELLE SR M.D. GOMEZ-RIVERA, FERNANDO, M.D. [facility] Fab rhinolaryngology [facility] [id number] [facility] 2019-10-27 15:30:00 2019-10-27 15:30:00 Appointment; CANDY MADISON KIMBERLY [facility] Otorhinolaryngology [facility] [id number] [facility] 2019-10-17 15:30:00 2019-10-17 15:30:00 Appointment; ALEC MARTIN M.D. BORTOLOTTI, JULIE, M.D. [facility] [id number] [facility] 2019-06-22 15:30:00 2019-06-22 15:30:00 Appointment; ALEC MARTIN M.D. BORTOLOTTI, JULIE, M.D. [facility] [id number] [facility] 2019-06-08 09:30:00 2019-06-08 09:30:00 Appointment; ALEC MARTIN M.D. BORTOLOTTI, JULIE, M.D. [facility] [id number] [facility] 2019-02-14 16:15:00 2019-02-14 16:15:00 Appointment; ALEC MARTIN M.D. BORTOLOTTI, JULIE, M.D. [facility] [id number] [facility] 2018-12-21 14:00:00 2018-12-21 14:00:00 Appointment; ALEC MARTIN M.D. BORTOLOTTI, JULIE, M.D. [facility], [address] [id number] [facility] 2018-08-17 15:00:00 2018-08-17 15:00:00 Appointment; DANNY JOHNSON M.D. CHARITAKIS, KONSTANTINOS, M.D. [facility] [address] [id number] [facility] 2018-06-20 14:00:00 2018-06-20 14:00:00 Appointment; ALEC MARTIN M.D. BORTOLOTTI, JULIE, M.D. [facility] [id number] [facility] 2018-06-20 14:00:00 2018-06-20 14:00:00 Appointment; ALEC MARTIN M.D. BORTOLOTTI, JULIE, M.D. [facility] [id number] [facility] 2018-02-17 15:45:00 2018-02-17 15:45:00 Appointment; JULIA WRAY P.A. SPOONER, JOSEPH, P.A. [facility] [id number] [facility] 2017-12-27 14:00:00 2017-12-27 14:00:00 Appointment; ALEC MARTIN M.D. BORTOLOTTI, JULIE, M.D. [facility] [address] [id number] [facility] 2017-11-23 15:30:00 2017-11-23 15:30:00 Appointment; ALEC MARTIN M.D. BORTOLOTTI, JULIE, M.D. [facility] [address] [id number] [facility] 2017-11-23 15:15:00 2017-11-23 15:15:00 Appointment; ALEC MARTIN M.D. BORTOLOTTI, JULIE, M.D. [facility] [id number] [facility] 2017-08-17 14:40:00 2017-08-17 14:40:00 Appointment; DANNY JOHNSON M.D. CHARITAKIS, KONSTANTINOS, M.D. [facility] [address] [id number] [facility] 2017-08-06 11:30:00 2017-08-06 11:30:00 Appointment; JULIA WRAY P.A. SPOONER, JOSEPH, P.A. [facility] [id number] [facility] 2017-07-30 18:38:00 2017-08-01 18:42:00 Discharged Inpatient JOSE ELÍAS CHANTALE [facility] [id number] [facility] 2017-07-06 15:15:00 2017-07-06 15:15:00 Appointment; ALEC MARTIN M.D. BORTOLOTTI, JULIE, M.D. [facility] [address] [id number] [facility] 2017-06-15 00:00:00 2017-06-23 00:00:00 Outpatient MARY HERNANDEZ [id number] 2017-05-27 12:21:00 2017-06-15 12:20:00 Discharged Inpatient ER SALCEDO TITA [facility] [id number] [facility] 2017-05-19 11:45:00 2017-05-19 11:45:00 Appointment; ALEC MARTIN M.D. BORTOLOTTI, JULIE, M.D. [facility] [address] [id number] [facility] 2017-05-18 15:30:00 2017-05-18 15:30:00 Appointment; DALY FAJARDO M.D. CATALANO, MARC, M.D. [facility] [address] [id number] [facility] 2017-05-05 09:30:00 2017-05-05 09:30:00 Appointment; ALEC MARTIN M.D. BORTOLOTTI, JULIE, M.D. [facility] [address] [id number] [facility] 2017-04-21 09:00:00 2017-04-21 09:00:00 Appointment; DALY FAJARDO M.D. CATALANO, MARC, M.D. [facility] [address] [id number] [facility] 2017-04-15 12:00:00 2017-04-15 12:00:00 Appointment; JULIA WRAY P.A. SPOONER, JOSEPH, P.A. [facility] [id number] [facility] 2017-04-05 10:00:00 2017-04-05 10:00:00 Appointment; ALEC MARTIN M.D. BORTOLOTTI, JULIE, M.D. [facility] [address] [id number] [facility] 2016-12-16 15:00:00 2016-12-16 15:00:00 Appointment; DANNY JOHNSON M.D. CHARITAKIS, KONSTANTINOS, M.D. UTP UTP [id number] [facility] 2016-12-07 14:00:00 2016-12-07 14:00:00 Appointment; [place], H OLSVETA [facility], HOLTER UTP UTP [id number] [facility] 2016-12-07 13:00:00 2016-12-07 13:00:00 Appointment; [place], E CHO [facility], ECHO UTP UTP [id number] [facility] 2016-11-11 11:30:00 2016-11-11 11:30:00 Appointment; ALEC MARTIN M.D. BORTOLOTTI, JULIE, M.D. [facility] UTP [id number] [facility] 2015-12-26 15:15:00 2015-12-26 15:15:00 Appointment; ALEC MARTIN M.D. BORTOLOTTI, JULIE, M.D. [facility] UTP [id number] [facility] 2015-12-17 15:00:00 2015-12-17 15:00:00 Appointment; DANNY JOHNSON M.D. CHARITAKIS, KONSTANTINOS, M.D. UTP UTP [id number] [facility] 2015-12-09 15:00:00 2015-12-09 15:00:00 Appointment; [place], H TAVIATER [facility], HOLTER UTP UTP [id number] [facility] 2015-11-28 13:45:00 2015-11-28 13:45:00 Appointment; DALY FAJARDO M.D. CATALANO, MARC, M.D. UTP UTP [id number] [facility] 2015-11-22 13:00:00 2015-11-22 13:00:00 Appointment; DANNY JOHNSON M.D. CHARITAKIS, KONSTANTINOS, M.D. UTP UTP [id number] [facility] 2015-10-17 10:00:00 2015-10-17 10:00:00 Appointment; ALEC MARTIN M.D. BORTOLOTTI, JULIE, M.D. U[facility] UTP [id number] [facility] 2015-09-24 10:45:00 2015-09-24 10:45:00 Appointment; SYLWIA MICHEL KHASHAYAR UTP UTP [id number] [facility] 2015-09-11 15:00:00 2015-09-11 15:00:00 Appointment; DANNY JOHNSON M.D. CHARITAKIS, KONSTANTINOS, M.D. UTP UTP [id number] [facility] 2015-09-11 12:00:00 2015-09-11 12:00:00 Appointment; KAY NINA M.D. AYOUB, HAJAR, M.D. UTP UTP [id number] [facility] 2015-09-03 16:00:00 2015-09-03 16:00:00 Appointment; [place], H OLTER [facility], HOLTER UTP UTP [id number] [facility] 2015-09-03 16:00:00 2015-09-03 16:00:00 Appointment; [place], S TRESS [facility], STRESS UTP UTP [id number] [facility] 2015-09-03 15:00:00 2015-09-03 15:00:00 Appointment; [place], E CHO [facility], ECHO UTP UTP [id number] [facility] 2015-08-30 07:00:00 2015-08-30 07:00:00 Appointment; DALY FAJARDO M.D. CATALANO, MARC, M.D. UTP UTP [id number] [facility] 2015-08-29 14:00:00 2015-08-29 14:00:00 Appointment; ALEC MARTIN M.D. BORTOLOTTI, JULIE, M.D. UTP UTP [id number] [facility] 2015-08-27 14:00:00 2015-08-27 14:00:00 Appointment; DALY FAJARDO M.D. CATALANO, MARC, M.D. UTP UTP [id number] [facility] 2015-08-23 13:00:00 2015-08-23 13:00:00 Appointment; DANNY JOHNSON M.D. CHARITAKIS, KONSTANTINOS, M.D. [facility] UTP [id number] [facility] 2015-08-12 11:45:00 2015-08-12 11:45:00 Appointment; ALEC MARTIN M.D. BORTOLOTTI, JULIE, M.D. [facility] UTP [id number] [facility] 2013-09-14 09:02:18 2013-09-14 09:02:18 Outpatient MHIE MHIE [id number] 2013-08-02 10:21:57 2013-08-02 10:21:57 Outpatient MHIE MHIE [id number] 2013-07-05 17:17:02 2013-07-05 17:17:02 Outpatient MHIE MHIE [id number] 2013-07-04 08:48:03 2013-07-04 08:48:03 Outpatient MHIE MHIE [id number] 2013-06-28 10:03:43 2013-06-28 10:03:42 Outpatient MHIE MHIE [id number] 2013-05-24 09:03:48 2013-05-24 09:03:48 Outpatient MHIE MHIE [id number] 2013-04-18 16:32:23 2013-04-18 16:32:22 Outpatient MHIE MHIE [id number] 2013-03-28 15:47:13 2013-03-28 15:47:13 Outpatient MHIE MHIE [id number] 2013-02-17 11:48:14 2013-02-17 11:48:13 Outpatient MHIE MHIE [id number] 2012-09-06 12:16:49 2012-09-06 12:16:49 Outpatient MHIE MHIE [id number] Results Test Description Test Time Test Comments Results Result Comments Source [QL] URINALYSIS, COMPLETE 2019 16:56:00 Test Item COLOR; Normal (test code = 5778-6) YELLOW YELLOW N APPEARANCE (test code = APPEARANCE) SLIGHTLY CLOUDY CLEAR A SPECIFIC GRAVITY; Normal (test code = 2965-2) 1.020 1.001-1. 035 N PH; Normal (test code = 2756-5) 6.0 5.0-8.0 N GLUCOSE; Normal (test code = 1547-9) NEGATIVE NEGATIVE N BILIRUBIN; Normal (test code = 83567-5) NEGATIVE NEGATIVE N KETONES; Normal (test code = 28015-8) NEGATIVE NEGATIVE N OCCULT BLOOD; Normal (test code = 95074-1) NEGATIVE NEGATIVE N PROTEIN; Normal (test code = 53640-5) NEGATIVE NEGATIVE N NITRITE; Normal (test code = 33177-9) NEGATIVE NEGATIVE N LEUKOCYTE ESTERASE (test code = LEUKOCYTE ESTERASE) NEGATIVE NE GATIVE N WBC; Normal (test code = 6690-2) 0-5 < OR = 5 N RBC; Normal (test code = 789-8) NONE SEEN < OR = 2 N SQUAMOUS EPITHELIAL CELLS (test code = 10774-4) 0-5 < OR = 5 BACTERIA; Abnormal (test code = 630-4) FEW NONE SEEN A CALCIUM OXALATE CRYSTALS; Normal (test code = 10032-0) FEW NONE OR FEW N HYALINE CAST; Normal (test code = 65783-8) NONE SEEN NONE SEEN N COMMENTS (test code = 32249-1) FEW MUCOUS THREADS [facility][] CULTURE, URINE, [id number] 16:56:00* Test Item Value Reference Range Interpretation Comments CULTURE (test code = CULTURE) See Comment CULTURE, URINE, ROUTINE Micro Number: [id number] Test Status: Final Specimen Source: URINE Specimen Quality: Adequate Result: No Growth [facility]] BASIC METABOLIC PANEL [id number] 10:56:00* Test Item Value Reference Range Interpretation Comments GLUCOSE; Normal (test code = 1547-9) 89 mg/dl 65-99 N Fasting reference interval UREA NITROGEN (BUN) (test code = UREA NITROGEN (BUN)) 22 mg/dl 7-25 N CREATININE (test code = CREATININE) 1.13 mg/dl 0.70-1.18 N For patients >49 years of age, the reference limitfor Creatinine is approximately 13% higher for peopleidentified as -[place]yr[place]. eGFR NON- (test code = eGFR NON-JO N PANAMANIAN) 64 {ML/MIN/1.7} > OR = 60 N eGFR (test code = eGFR ) 74 {ML/MIN/1.7} > OR = 60 N BUN/CREATININE RATIO (test code = BUN/CREATININE RATIO) NOT APPLICA BLE 6-22 SODIUM (test code = SODIUM) 145 mmol/L 135-146 N POTASSIUM (test code = POTASSIUM) 4.0 mmol/L 3.5-5.3 N CHLORIDE (test code = CHLORIDE) 108 mmol/L 98-110 N CARBON DIOXIDE (test code = CARBON DIOXIDE) 28 mmol/L 20-32 N CALCIUM (test code = CALCIUM) 9.5 mg/dl 8.6-10.3 N [facility]] HEPATIC FUNCTION [id number] 10:56:00* Test Item Value Reference Range Interpretation Comments PROTEIN, TOTAL (test code = PROTEIN, TOTAL) 5.8 g/dl 6.1-8.1 ALBUMIN (test code = ALBUMIN) 3.8 g/dl 3.6-5.1 N GLOBULIN (test code = GLOBULIN) 2.0 {G/DL CALC} 1.9-3.7 N ALBUMIN/GLOBULIN RATIO (test code = ALBUMIN/GLOBULIN RATIO) 1.9 {CALC} 1.0-2.5 N BILIRUBIN, DIRECT; Normal (test code = 59985-6) 0.2 mg/dl < OR = 0.2 N BILIRUBIN, INDIRECT; Normal (test code = 1971-1) 0.5 {MG/DL ULISSES} 0 .2-1.2 N ALKALINE PHSPHATASE (test code = ALKALINE PHSPHATASE) 98 u/l 40-115 N AST; Normal (test code = 1916-6) 24 u/l 10-35 N ALT; Normal (test code = 1742-6) 31 u/l 9-46 N [facility]] CBC (INCLUDES DIFF/PLT)2019-06-08 10:56:00* Test Item Value Reference Range Interpretation Comments WHITE BLOOD CELL COUNT (test code = WHITE BLOOD CELL COUNT) 5.7 {Thousand/u} 3.8-10.8 N RED BLOOD CELL COUNT (test code = RED BLOOD CELL COUNT) 4.88 {Million/uL} 4.20-5.80 N HEMAGLOBIN; Normal (test code = 78346-8) 15.6 g/dl 13.2-17.1 N HEMATOCRIT; Normal (test code = 4544-3) 46.1 % 38.5-50.0 N MCV; Normal (test code = 787-2) 94.5 fL 80.0-100.0 N MCHC; Normal (test code = 34546-0) 33.8 g/dl 32.0-36.0 N RDW; Normal (test code = 788-0) 12.5 % 11.0-15.0 N PLATELET COUNT; Below Low Threshold (test code = 777-3) 129 {Thousand/u} 140-400 MPV; Above High Threshold (test code = 48437-3) 12.8 fL 7.5-12 .5 ABSOLUTE NEUTROPHILS (test code = ABSOLUTE NEUTROPHILS) 2879 {cells/uL} 1291-8893 N ABSOLUTE LYMPHOCYTES (test code = ABSOLUTE LYMPHOCYTES) 2183 {cells/uL} 850-3900 N ABSOLUTE MONOCYTES (test code = ABSOLUTE MONOCYTES) 439 {cells/uL} 200-950 N ABSOLUTE EOSINOPHILS (test code = ABSOLUTE EOSINOPHILS) 160 {cells/ uL} 15-500 N ABSOLUTE BASOPHILS (test code = ABSOLUTE BASOPHILS) 40 {cells/uL} 0 -200 N NEUTROPHILS (test code = NEUTROPHILS) 50.5 % N LYMPHOCYTES (test code = LYMPHOCYTES) 38.3 % N MONOCYTES; Normal (test code = 53217-0) 7.7 % N EOSINOPHILS; Normal (test code = 63891-0) 2.8 % N BASOPHILS; Normal (test code = 05804-1) 0.7 % N [facility]] HEPATITIS C [id number] 10:56:00* Test Item Value Reference Range Interpretation Comments HEPATITIS C ANTIBODY; Normal (test code = 03845-7) NON-REACTIVE NON -REACTIVE N SIGNAL TO CUT-OFF (test code = SIGNAL TO CUT-OFF) 0.01 <1.0 0 N HCV antibody was non-reactive. There is no laboratory evidence of HCV infection. In most cases, no further action is required. However,if recent HCV exposure is suspected, a test for HCV RNA(test code 68790) is suggested. For additional information please refer tohttp://education.Oonair/faq/XGX37z1(This link is being provided for informational/educational purposes only.) [facility]] TSH, 3RD [id number] 10:56:00* Test Item Value Reference Range Interpretation Comments TSH; Normal (test code = 82211-9) 3.62 {MIU/L} 0.40-4.50 N [facility]] URINALYSIS, COMPLETE W/REFLEX TO CULTURE 2019-06-07 12:08:00* Test Item Value Reference Range Interpretation Comments COLOR; Normal (test code = 5778-6) YELLOW YELLOW N APPEARANCE (test code = APPEARANCE) CLEAR CLEAR N SPECIFIC GRAVITY; Normal (test code = 2965-2) 1.021 1.001-1. 035 N PH; Normal (test code = 2756-5) < OR = 5.0 5.0-8.0 N GLUCOSE; Normal (test code = 1547-9) NEGATIVE NEGATIVE N BILIRUBIN; Normal (test code = 30906-7) NEGATIVE NEGATIVE N KETONES; Normal (test code = 79062-2) NEGATIVE NEGATIVE N OCCULT BLOOD; Normal (test code = 63514-6) NEGATIVE NEGATIVE N PROTEIN; Abnormal (test code = 11864-6) TRACE NEGATIVE A NITRITE (test code = NITRITE) NEGATIVE NEGATIVE N LEUKOCYTE ESTERASE (test code = LEUKOCYTE ESTERASE) NEGATIVE NE GATIVE N WBC; Normal (test code = 6690-2) 0-5 < OR = 5 N RBC; Normal (test code = 789-8) 0-2 < OR = 2 N SQUAMOUS EPITHELIAL CELLS (test code = 03553-9) 0-5 < OR = 5 BACTERIA; Abnormal (test code = 630-4) FEW NONE SEEN A CALCIUM OXALATE CRYSTALS; Abnormal (test code = 66957-4) MODERATE NONE OR FEW A HYALINE CAST; Normal (test code = 15841-5) NONE SEEN NONE SEEN N [facility][] REFLEXIVE URINE [id number] 12:08:00* Test Item Value Reference Range Interpretation Comments REFLEXIVE URINE CULTURE (test code = REFLEXIVE URINE C ULTURE) NO CULTURE INDICATED [facility]] CMP [id number] 14:24:00* Test Item Value Reference Range Interpretation Comments GLUCOSE; Normal (test code = 1547-9) 100 mg/dl 65-139 N Non-fasting reference interval UREA NITROGEN (BUN) (test code = UREA NITROGEN (BUN)) 19 mg/dl 7-25 N CREATININE (test code = CREATININE) 1.15 mg/dl 0.70-1.18 N For patients >49 years of age, the reference limitfor Creatinine is approximately 13% higher for peopleidentified as -Kyrgyz. eGFR NON- (test code = eGFR NON-JO N PANAMANIAN) 63 {ML/MIN/1.7} > OR = 60 N eGFR (test code = eGFR ) 73 {ML/MIN/1.7} > OR = 60 N BUN/CREATININE RATIO (test code = BUN/CREATININE RATIO) NOT APPLICA BLE 6-22 SODIUM (test code = SODIUM) 144 mmol/L 135-146 N POTASSIUM (test code = POTASSIUM) 3.8 mmol/L 3.5-5.3 N CHLORIDE (test code = CHLORIDE) 108 mmol/L 98-110 N CARBON DIOXIDE (test code = CARBON DIOXIDE) 30 mmol/L 20-32 N CALCIUM (test code = CALCIUM) 9.4 mg/dl 8.6-10.3 N PROTEIN, TOTAL (test code = PROTEIN, TOTAL) 5.7 g/dl 6.1-8.1 ALBUMIN (test code = ALBUMIN) 3.9 g/dl 3.6-5.1 N GLOBULIN (test code = GLOBULIN) 1.8 {G/DL CALC} 1.9-3.7 ALBUMIN/GLOBULIN RATIO (test code = ALBUMIN/GLOBULIN RATIO) 2.2 {CALC} 1.0-2.5 N BILIRUBIN, TOTAL; Normal (test code = 78365-5) 0.6 mg/dl 0.2-1.2 N ALKALINE PHSPHATASE (test code = ALKALINE PHSPHATASE) 89 u/l 40-115 N AST; Normal (test code = 1916-6) 14 u/l 10-35 N ALT; Normal (test code = 1742-6) 10 u/l 9-46 N [facility]] URINALYSIS, [id number] 14:24:00* Test Item Value Reference Range Interpretation Comments COLOR; Normal (test code = 5778-6) YELLOW YELLOW N APPEARANCE (test code = APPEARANCE) CLEAR CLEAR N SPECIFIC GRAVITY; Normal (test code = 2965-2) 1.023 1.001-1. 035 N PH; Normal (test code = 2756-5) 6.5 5.0-8.0 N GLUCOSE; Normal (test code = 1547-9) NEGATIVE NEGATIVE N BILIRUBIN; Normal (test code = 09199-4) NEGATIVE NEGATIVE N KETONES; Normal (test code = 66260-2) NEGATIVE NEGATIVE N OCCULT BLOOD; Abnormal (test code = 04549-7) TRACE NEGATIVE A PROTEIN; Abnormal (test code = 19272-4) 1+ NEGATIVE A NITRITE; Normal (test code = 03466-1) NEGATIVE NEGATIVE N LEUKOCYTE ESTERASE (test code = LEUKOCYTE ESTERASE) TRACE NE GATIVE A WBC; Abnormal (test code = 6690-2) 6-10 < OR = 5 A RBC; Abnormal (test code = 789-8) 3-10 < OR = 2 A SQUAMOUS EPITHELIAL CELLS (test code = 23844-1) 0-5 < OR = 5 BACTERIA; Abnormal (test code = 630-4) FEW NONE SEEN A CALCIUM OXALATE CRYSTALS; Normal (test code = 04635-2) FEW NONE OR FEW N AMORPHOUS SEDIMENT; Normal (test code = 8246-1) FEW NONE O R FEW N HYALINE CAST; Abnormal (test code = 00690-7) 0-5 NONE SEEN A COMMENTS (test code = 65746-5) FEW MUCOUS THREADS [facility]] CBC (INCLUDES DIFF/PLT)2018-09-02 14:24:00* Test Item Value Reference Range Interpretation Comments WHITE BLOOD CELL COUNT (test code = WHITE BLOOD CELL COUNT) 5.7 {Thousand/u} 3.8-10.8 N RED BLOOD CELL COUNT (test code = RED BLOOD CELL COUNT) 4.51 {Million/uL} 4.20-5.80 N HEMAGLOBIN; Normal (test code = 74317-0) 14.8 g/dl 13.2-17.1 N HEMATOCRIT; Normal (test code = 4544-3) 43.0 % 38.5-50.0 N MCV; Normal (test code = 787-2) 95.3 fL 80.0-100.0 N MCHC; Normal (test code = 27189-2) 34.4 g/dl 32.0-36.0 N RDW; Normal (test code = 788-0) 12.6 % 11.0-15.0 N PLATELET COUNT; Below Low Threshold (test code = 777-3) 137 {Thousand/u} 140-400 MPV; Above High Threshold (test code = 29349-7) 13.0 fL 7.5-12 .5 ABSOLUTE NEUTROPHILS (test code = ABSOLUTE NEUTROPHILS) 3386 {cells/uL} 3898-9658 N ABSOLUTE LYMPHOCYTES (test code = ABSOLUTE LYMPHOCYTES) 1636 {cells/uL} 850-3900 N ABSOLUTE MONOCYTES (test code = ABSOLUTE MONOCYTES) 485 {cells/uL} 200-950 N ABSOLUTE EOSINOPHILS (test code = ABSOLUTE EOSINOPHILS) 143 {cells/ uL} 15-500 N ABSOLUTE BASOPHILS (test code = ABSOLUTE BASOPHILS) 51 {cells/uL} 0 -200 N NEUTROPHILS (test code = NEUTROPHILS) 59.4 % N LYMPHOCYTES (test code = LYMPHOCYTES) 28.7 % N MONOCYTES; Normal (test code = 98551-7) 8.5 % N EOSINOPHILS; Normal (test code = 83764-1) 2.5 % N BASOPHILS; Normal (test code = 63309-8) 0.9 % N [facility]] CULTURE, URINE, [id number] 14:24:00* Test Item Value Reference Range Interpretation Comments CULTURE (test code = CULTURE) See Comment CULTURE, URINE, ROUTINE MICRO NUMBER: [id number] TEST STATUS: FINAL SPECIMEN SOURCE: URINE SPECIMEN QUALITY: ADEQUATE RESULT: No Growth [facility] Use [id number] 14:00:00* Test Item Value Reference Range Interpretation Comments Completed (test code = Completed) DONE [facility]] CBC (INCLUDES DIFF/PLT)2018-06-16 17:30:00* Test Item Value Reference Range Interpretation Comments WHITE BLOOD CELL COUNT (test code = WHITE BLOOD CELL COUNT) 5.6 {Thousand/u} 3.8-10.8 N RED BLOOD CELL COUNT (test code = RED BLOOD CELL COUNT) 4.58 {Million/uL} 4.20-5.80 N HEMAGLOBIN; Normal (test code = 59395-4) 15.0 g/dl 13.2-17.1 N HEMATOCRIT; Normal (test code = 4544-3) 43.6 % 38.5-50.0 N MCV; Normal (test code = 787-2) 95.2 fL 80.0-100.0 N MCHC; Normal (test code = 85381-4) 34.4 g/dl 32.0-36.0 N RDW; Normal (test code = 788-0) 12.7 % 11.0-15.0 N PLATELET COUNT; Below Low Threshold (test code = 777-3) 136 {Thousand/u} 140-400 MPV; Above High Threshold (test code = 04035-5) 13.3 fL 7.5-12 .5 ABSOLUTE NEUTROPHILS (test code = ABSOLUTE NEUTROPHILS) 3690 {cells/uL} 6026-6129 N ABSOLUTE LYMPHOCYTES (test code = ABSOLUTE LYMPHOCYTES) 1355 {cells/uL} 850-3900 N ABSOLUTE MONOCYTES (test code = ABSOLUTE MONOCYTES) 386 {cells/uL} 200-950 N ABSOLUTE EOSINOPHILS (test code = ABSOLUTE EOSINOPHILS) 118 {cells/ uL} 15-500 N ABSOLUTE BASOPHILS (test code = ABSOLUTE BASOPHILS) 50 {cells/uL} 0 -200 N NEUTROPHILS (test code = NEUTROPHILS) 65.9 % N LYMPHOCYTES (test code = LYMPHOCYTES) 24.2 % N MONOCYTES; Normal (test code = 01716-2) 6.9 % N EOSINOPHILS; Normal (test code = 41118-5) 2.1 % N BASOPHILS; Normal (test code = 76560-4) 0.9 % N [facility]] BASIC METABOLIC PANEL [id number] 17:30:00* Test Item Value Reference Range Interpretation Comments GLUCOSE; Normal (test code = 1547-9) 94 mg/dl 65-99 N Fasting reference interval UREA NITROGEN (BUN) (test code = UREA NITROGEN (BUN)) 15 mg/dl 7-25 N CREATININE (test code = CREATININE) 1.00 mg/dl 0.70-1.18 N For patients >49 years of age, the reference limitfor Creatinine is approximately 13% higher for peopleidentified as -Kyrgyz. eGFR NON- (test code = eGFR NON-JO N PANAMANIAN) 74 {ML/MIN/1.7} > OR = 60 N eGFR (test code = eGFR ) 86 {ML/MIN/1.7} > OR = 60 N BUN/CREATININE RATIO (test code = BUN/CREATININE RATIO) NOT APPLICA BLE 6-22 SODIUM (test code = SODIUM) 144 mmol/L 135-146 N POTASSIUM (test code = POTASSIUM) 3.7 mmol/L 3.5-5.3 N CHLORIDE (test code = CHLORIDE) 109 mmol/L 98-110 N CARBON DIOXIDE (test code = CARBON DIOXIDE) 25 mmol/L 20-32 N CALCIUM (test code = CALCIUM) 9.0 mg/dl 8.6-10.3 N [facility]] PSA (FREE AND TOTAL)2018-06-16 17:30:00* Test Item Value Reference Range Interpretation Comments TOTAL PSA (test code = TOTAL PSA) 2.7 ng/ml < OR = 4.0 N FREE PSA (test code = FREE PSA) 1.0 ng/ml N % FREE PSA (test code = % FREE PSA) 37 {% CALC} >25 N PSA(ng/mL) Free PSA(%) Estimated(x) Probability of Cancer(as%)0-2.5 (*) Approx. 12.6-4.0(1) 0- 27(2) 24(3)4.1-10(4) 0-10 56 11-15 28 16-20 20 21-25 16 >or =26 8>10(+) N/A >50 References:(1)Stephanie et al.:Urology 60: 469-474 (2001) (2)Darlynona et al.:J.Urol 168: 922-925 (2001) Free PSA(%) Sensitivity(%) Specificity(%) < or = 25 85 19 < or = 30 93 9 (3)Catalona et al.:TAMMI 277: 3901-7171 (1996) (4)Catalona et al.:TAMMI 279: 0160-5986 (1997) (x)These estimates vary with age, ethnicity, family history and GLADIS results.(*)The diagnostic usefulness of % Free PSA has not been established in patients with total PSA below 2.6 ng/mL(+)In men with PSA above 10 ng/mL, prostate cancer risk is determined by total PSA alone. The Total PSA value from this assay system is standardized against the equimolar PSA standard. The test result will be approximately 20% higher when compared to the WHO- standardized Total PSA (Siemens assay). Comparison of serial PSA results should be interpreted with this fact in mind. PSA was performed using the Tamela CoulterImmunoassay method. Values obtained from differentassay methods cannot be used interchangeably. PSAlevels, regardless of value, should not be interpretedas absolute evidence of the presence or absence ofdisease. [facility]] URINALYSIS, [id number] 17:04:00* Test Item Value Reference Range Interpretation Comments COLOR; Normal (test code = 5778-6) DARK YELLOW YELLOW N APPEARANCE (test code = APPEARANCE) CLOUDY CLEAR A SPECIFIC GRAVITY; Normal (test code = 2965-2) 1.024 1.001-1. 035 N PH; Normal (test code = 2756-5) 5.5 5.0-8.0 N GLUCOSE; Normal (test code = 1547-9) NEGATIVE NEGATIVE N BILIRUBIN; Normal (test code = 83847-8) NEGATIVE NEGATIVE N KETONES; Normal (test code = 93894-8) NEGATIVE NEGATIVE N OCCULT BLOOD; Abnormal (test code = 20752-5) 3+ NEGATIVE A PROTEIN; Abnormal (test code = 58632-8) 2+ NEGATIVE A NITRITE; Normal (test code = 97550-8) NEGATIVE NEGATIVE N LEUKOCYTE ESTERASE (test code = LEUKOCYTE ESTERASE) 1+ NE GATIVE A WBC; Abnormal (test code = 6690-2) 10-20 < OR = 5 A RBC; Abnormal (test code = 789-8) 40-60 < OR = 2 A SQUAMOUS EPITHELIAL CELLS (test code = 21116-9) 0-5 < OR = 5 BACTERIA; Abnormal (test code = 630-4) FEW NONE SEEN A CALCIUM OXALATE CRYSTALS; Normal (test code = 22960-4) FEW NONE OR FEW N HYALINE CAST; Normal (test code = 91173-5) NONE SEEN NONE SEEN N COMMENTS (test code = 24162-1) FEW MUCOUS THREADS [facility]] CULTURE, URINE, [id number] 17:04:00* Test Item Value Reference Range Interpretation Comments CULTURE (test code = CULTURE) See Comment CULTURE, URINE, ROUTINE MICRO NUMBER: [id number] TEST STATUS: FINAL SPECIMEN SOURCE: URINE, CLEAN CATCH SPECIMEN QUALITY: ADEQUATE RESULT: No Growth [facility]] LIPID [id number] 11:10:00* Test Item Value Reference Range Interpretation Comments CHOLESTEROL, TOTAL; Above High Threshold (test code = 2093-3) 222 m g/dl <200 HDL CHOLESTEROL; Normal (test code = 2085-9) 64 mg/dl >40 N TRIGLYCERIDES; Normal (test code = 2571-8) 96 mg/dl <150 N LDL-CHOLESTEROL; Above High Threshold (test code = 61781-1) 138 {MG/DL ULISSES} Reference range: <100 Desirable range <1 00 mg/dL for primary prevention; <70 mg/dL for patients with CHD or diabetic patients with > or = 2 CHD risk factors. LDL-C is now calculated using the Pranav calculation, which is a validated novel method providing better accuracy than the Friedewald equation in the estimation of LDL-C. Ángel COLÓN et al. TAMMI. 2013;310(26): 3133-3255 (http ://education.Futurelytics/faq/RJD414) CHOL/HDLC RATIO (test code = CHOL/HDLC RATIO) 3.5 {CALC} <5.0 N NON HDL CHOLESTEROL (test code = NON HDL CHOLESTEROL) 158 {MG/DL C AL} <130 For patients with diabetes plus 1 major ASCVD risk factor, treating to a non-HDL-C goal of <100 mg/dL (LDL-C of <70 mg/dL) is considered a therapeutic option. [facility]] IRON AND TOTAL IRON BINDING CAPACITY 2017-08-17 11:10:00* Test Item Value Reference Range Interpretation Comments IRON, TOTAL (test code = IRON, TOTAL) 90 {mcg/dl} 50-180 N IRON BINDING CAPACITY (test code = IRON BINDING CAPACITY) 22 8 {mcg/dL ca} 250-425 % SATURATION (test code = % SATURATION) 39 {% CALC} 15-60 N [facility]] CMP [id number] 11:10:00* Test Item Value Reference Range Interpretation Comments GLUCOSE; Normal (test code = 1547-9) 84 mg/dl 65-99 N Fasting reference interval UREA NITROGEN (BUN) (test code = UREA NITROGEN (BUN)) 18 mg/dl 7-25 N CREATININE (test code = CREATININE) 0.84 mg/dl 0.70-1.18 N For patients >49 years of age, the reference limitfor Creatinine is approximately 13% higher for peopleidentified as -Kyrgyz. eGFR NON- (test code = eGFR NON-JO N PANAMANIAN) 87 {ML/MIN/1.7} > OR = 60 N eGFR (test code = eGFR ) 10 1 {ML/MIN/1.7} > OR = 60 N BUN/CREATININE RATIO (test code = BUN/CREATININE RATIO) NOT APPLICA BLE 6-22 SODIUM (test code = SODIUM) 147 mmol/L 135-146 POTASSIUM (test code = POTASSIUM) 3.5 mmol/L 3.5-5.3 N CHLORIDE (test code = CHLORIDE) 108 mmol/L 98-110 N CARBON DIOXIDE (test code = CARBON DIOXIDE) 30 mmol/L 20-31 N CALCIUM (test code = CALCIUM) 9.4 mg/dl 8.6-10.3 N PROTEIN, TOTAL (test code = PROTEIN, TOTAL) 5.9 g/dl 6.1-8.1 ALBUMIN (test code = ALBUMIN) 3.9 g/dl 3.6-5.1 N GLOBULIN (test code = GLOBULIN) 2.0 {G/DL CALC} 1.9-3.7 N ALBUMIN/GLOBULIN RATIO (test code = ALBUMIN/GLOBULIN RATIO) 2.0 {CALC} 1.0-2.5 N BILIRUBIN, TOTAL; Normal (test code = 25794-8) 0.7 mg/dl 0.2-1.2 N ALKALINE PHSPHATASE (test code = ALKALINE PHSPHATASE) 62 u/l 40-115 N AST; Normal (test code = 1916-6) 10 u/l 10-35 N ALT; Below Low Threshold (test code = 1742-6) 6 u/l 9-46 [facility]] CBC (INCLUDES DIFF/PLT)2017-08-17 11:10:00* Test Item Value Reference Range Interpretation Comments WHITE BLOOD CELL COUNT (test code = WHITE BLOOD CELL COUNT) 4.8 {Thousand/u} 3.8-10.8 N RED BLOOD CELL COUNT (test code = RED BLOOD CELL COUNT) 4.47 {Million/uL} 4.20-5.80 N HEMOGLOBIN; Normal (test code = 28283-0) 14.6 g/dl 13.2-17.1 N HEMATOCRIT; Normal (test code = 4544-3) 42.6 % 38.5-50.0 N MCV; Normal (test code = 787-2) 95.3 fL 80.0-100.0 N MCHC; Normal (test code = 06052-3) 34.3 g/dl 32.0-36.0 N RDW; Normal (test code = 788-0) 13.3 % 11.0-15.0 N PLATELET COUNT; Normal (test code = 777-3) 158 {Thousand/u} 140-400 N MPV; Above High Threshold (test code = 29497-3) 12.6 fL 7.5-12 .5 ABSOLUTE NEUTROPHILS (test code = ABSOLUTE NEUTROPHILS) 2381 {cells/uL} 2531-0514 N ABSOLUTE LYMPHOCYTES (test code = ABSOLUTE LYMPHOCYTES) 1901 {cells/uL} 850-3900 N ABSOLUTE MONOCYTES (test code = ABSOLUTE MONOCYTES) 278 {cells/uL} 200-950 N ABSOLUTE EOSINOPHILS (test code = ABSOLUTE EOSINOPHILS) 168 {cells/ uL} 15-500 N ABSOLUTE BASOPHILS (test code = ABSOLUTE BASOPHILS) 72 {cells/uL} 0 -200 N NEUTROPHILS (test code = NEUTROPHILS) 49.6 % N LYMPHOCYTES (test code = LYMPHOCYTES) 39.6 % N MONOCYTES; Normal (test code = 78164-9) 5.8 % N EOSINOPHILS; Normal (test code = 31089-2) 3.5 % N BASOPHILS; Normal (test code = 13611-4) 1.5 % N [facility]] FOLATE, [id number] 11:10:00* Test Item Value Reference Range Interpretation Comments FOLATE, SERUM (test code = FOLATE, SERUM) 6.3 ng/ml N Reference Range Low: <3.4 Borderline: 3.4-5.4 Normal: >5.4 [facility]] VITAMIN [id number] 11:10:00* Test Item Value Reference Range Interpretation Comments VITAMIN B12 (test code = VITAMIN B12) 249 pg/ml 200-1100 N Please Note: Although the reference range for wictswaV50 is 200-1100 pg/mL, it has been reported that between5 and 10% of patients with values between 200 and 400pg/mL may experience neuropsychiatric and hematologicabnormalities due to occult B12 deficiency; less than 1%of patients with values above 400 pg/mL will have symptoms. [facility]icians[facility] [id number] 16:40:00* Test Item Value Reference Range Interpretation Comments Blood Culture (test code = 30791773) NO GROWTH AFTER 48 HOURS [facility] [id number] 11:46:00* Test Item Value Reference Range Interpretation Comments Random Vancomycin Level (test code = 73000-0) 11.9 [facility] ChildrenCreat[facility] Kinase [id number] 19:14:00* Test Item Value Reference Range Interpretation Comments Creatine Kinase MB (test code = 16389-9) 1.50 0-5.0 [facility] ChildrenTroponin [id number] 19:14:00* Test Item Value Reference Range Interpretation Comments Troponin I (test code = TDM3330) 0.011 0-0.300 [facility] ChildrenCreatine Nfxwbi2764-74-08 19:08:00* Test Item Value Reference Range Interpretation Comments Creatine Kinase (test code = 2157-6) 97 30-200 [facility] [id number] 07:42:00* Test Item Value Reference Range Interpretation Comments Sodium Level (test code = 2951-2) 138 136-145 [facility] ChildrenPotassium Izalw0457-43-50 07:42:00* Test Item Value Reference Range Interpretation Comments Potassium Level (test code = 2823-3) 4.3 3.5-5.1 [facility] ChildrenChloride Bfhgf1896-94-19 07:42:00* Test Item Value Reference Range Interpretation Comments Chloride Level (test code = 2075-0) 106 98-107 [facility] ChildrenCarbon Dioxide Amxln3210-07-60 07:42:00* Test Item Value Reference Range Interpretation Comments Carbon Dioxide Level (test code = 2028-9) 26 22-29 [facility] ChildrenAnion [id number] 07:42:00* Test Item Value Reference Range Interpretation Comments Anion Gap (test code = 19387-0) 10.3 8-16 [facility] ChildrenBlood Urea Kzsooucl2101-46-44 07:42:00* Test Item Value Reference Range Interpretation Comments Blood Urea Nitrogen (test code = 3094-0) 11 7-26 [facility] ChildrenCreatinine2018-03-24 07:42:00* Test Item Value Reference Range Interpretation Comments Creatinine (test code = 2160-0) 0.80 0.72-1.25 [facility] ChildrenBUN/Creatinine Fwqiq0790-19-04 07:42:00* Test Item Value Reference Range Interpretation Comments BUN/Creatinine Ratio (test code = 3097-3) 14 6-25 [facility] ChildrenEstimat Glomerular Filtration Rate 2017-07-31 07:42:00* Test Item Value Reference Range Interpretation Comments Estimat Glomerular Filtration Rate (test code = 37236-6) 60- >60 Ranges were taken from the National Kidney Disease Education Program and the [facility] literature.Reference ranges:60 or greater: Blmipz19-89 ( for 3 consecutive months): Chronic kidney disease 15 or less: Kidney failureCHI Del Sol Medical CenterGlucose Xykky4525-20-15 07:42:00* Test Item Value Reference Range Interpretation Comments Glucose Level (test code = SXW8997) 74 74-118 [facility] ChildrenCalcium Ynfef6736-08-17 07:42:00* Test Item Value Reference Range Interpretation Comments Calcium Level (test code = 30248-1) 8.7 8.4-10.2 [facility] ChildrenPhosphorus Pmnjq2043-53-99 07:42:00* Test Item Value Reference Range Interpretation Comments Phosphorus Level (test code = [id number]) 3.2 2.3-4.7 [facility] ChildrenMagnesium Rcuul9271-49-11 07:42:00* Test Item Value Reference Range Interpretation Comments Magnesium Level (test code = 05111-1) 1.7 1.3-2.1 [facility] ChildrenTotal Mrwameemt3407-94-31 07:42:00* Test Item Value Reference Range Interpretation Comments Total Bilirubin (test code = 1975-2) 0.7 0.2-1.2 [facility] ChildrenAspartate Amino Transf (AST/SGOT) 2017-07-31 07:42:00* Test Item Value Reference Range Interpretation Comments Aspartate Amino Transf (AST/SGOT) (test code = Aspartate Amino Transf (AST/SGOT)) 11 5-34 [facility] ChildrenAlanine Aminotransferase (ALT/SGPT) 2017-07-31 07:42:00* Test Item Value Reference Range Interpretation Comments Alanine Aminotransferase (ALT/SGPT) (test code = 1742-6) 6 0-55 [facility] ChildrenTotal Bwxoysm3545-90-51 07:42:00* Test Item Value Reference Range Interpretation Comments Total Protein (test code = 2885-2) 4.8 6.5-8.1 L [facility] ChildrenAlbumin2018-03-24 07:42:00* Test Item Value Reference Range Interpretation Comments Albumin (test code = 1751-7) 3.2 3.5-5.0 L [facility] ChildrenGlobulin2018-03-24 07:42:00* Test Item Value Reference Range Interpretation Comments Globulin (test code = 20764-6) 1.6 2.3-3.5 L [facility] ChildrenAlbumin/Globulin Yqpsg3004-23-92 07:42:00 * Test Item Value Reference Range Interpretation Comments Albumin/Globulin Ratio (test code = 1759-0) 2.0 0.8-2.0 [facility] ChildrenAlkaline Aoilvpzkuwn8218-40-60 07:42:00* Test Item Value Reference Range Interpretation Comments Alkaline Phosphatase (test code = 6768-6) 55 40-150 [facility] ChildrenWhite Blood Nybnn9886-73-83 07:00:00* Test Item Value Reference Range Interpretation Comments White Blood Count (test code = 6690-2) 4.14 4.8-10.8 L [facility] ChildrenRed Blood Bmecy6568-23-41 07:00:00* Test Item Value Reference Range Interpretation Comments Red Blood Count (test code = 789-8) 3.77 4.3-5.7 L [facility] ChildrenHemoglobin2018-03-24 07:00:00* Test Item Value Reference Range Interpretation Comments Hemoglobin (test code = 52906-4) 12.5 14.0-18.0 L [facility] ChildrenHematocrit2018-03-24 07:00:00* Test Item Value Reference Range Interpretation Comments Hematocrit (test code = 4544-3) 37.1 38.2-49.6 L [facility] ChildrenMean Corpuscular Vovvwq5333-12-88 07:00:00* Test Item Value Reference Range Interpretation Comments Mean Corpuscular Volume (test code = 787-2) 98.4 81-99 [facility] ChildrenMean Corpuscular Lzqqtnxthb6713-95-29 07:00:00* Test Item Value Reference Range Interpretation Comments Mean Corpuscular Hemoglobin (test code = 785-6) 33.2 28-32 H [facility] ChildrenMean Corpuscular Hemoglobin Concent 2017-07-31 07:00:00* Test Item Value Reference Range Interpretation Comments Mean Corpuscular Hemoglobin Concent (test code = 786-4) 33.7 31-35 [facility] ChildrenRed Cell Distribution Eoqof4598-51-02 07:00:00* Test Item Value Reference Range Interpretation Comments Red Cell Distribution Width (test code = 17278-4) 13.7 11.7 -14.4 [facility] ChildrenPlatelet Rubun4657-50-33 07:00:00* Test Item Value Reference Range Interpretation Comments Platelet Count (test code = 777-3) 138 140-360 L [facility] ChildrenNeutrophils (%) (Auto)2017-07-31 07:00:00 * Test Item Value Reference Range Interpretation Comments Neutrophils (%) (Auto) (test code = 02091-4) 46.2 38.7-80.0 [facility] ChildrenLymphocytes (%) (Auto)2017-07-31 07:00:00 * Test Item Value Reference Range Interpretation Comments Lymphocytes (%) (Auto) (test code = 736-9) 38.6 18.0-39.1 [facility] ChildrenMonocytes (%) (Auto)2017-07-31 07:00:00* Test Item Value Reference Range Interpretation Comments Monocytes (%) (Auto) (test code = 5905-5) 9.9 4.4-11.3 [facility] ChildrenEosinophils (%) (Auto)2017-07-31 07:00:00 * Test Item Value Reference Range Interpretation Comments Eosinophils (%) (Auto) (test code = 713-8) 4.1 0.0-6.0 [facility] ChildrenBasophils (%) (Auto)2017-07-31 07:00:00* Test Item Value Reference Range Interpretation Comments Basophils (%) (Auto) (test code = 706-2) 1.0 0.0-1.0 [facility] ChildrenIM GRANULOCYTES %2017-07-31 07:00:00* Test Item Value Reference Range Interpretation Comments IM GRANULOCYTES % (test code = IM GRANULOCYTES %) 0.2 0.0- 1.0 [facility] ChildrenNeutrophils # (Auto)2017-07-31 07:00:00* Test Item Value Reference Range Interpretation Comments Neutrophils # (Auto) (test code = 751-8) 1.9 2.1-6.9 L [facility] ChildrenLymphocytes # (Auto)2017-07-31 07:00:00* Test Item Value Reference Range Interpretation Comments Lymphocytes # (Auto) (test code = 77248-5) 1.6 1.0-3.2 [facility] ChildrenMonocytes # (Auto)2017-07-31 07:00:00* Test Item Value Reference Range Interpretation Comments Monocytes # (Auto) (test code = 742-7) 0.4 0.2-0.8 [facility] ChildrenEosinophils # (Auto)2017-07-31 07:00:00* Test Item Value Reference Range Interpretation Comments Eosinophils # (Auto) (test code = 711-2) 0.2 0.0-0.4 [facility] ChildrenBasophils # (Auto)2017-07-31 07:00:00* Test Item Value Reference Range Interpretation Comments Basophils # (Auto) (test code = 704-7) 0.0 0.0-0.1 [facility] ChildrenAbsolute Immature Granulocyte (auto 2017-07-31 07:00:00* Test Item Value Reference Range Interpretation Comments Absolute Immature Granulocyte (auto (sona t code = Absolute Immature Granulocyte (auto) 0.01 0-0.1 [facility] ChildrenUrine [id number] 20:18:00* Test Item Value Reference Range Interpretation Comments Urine WBC (test code = 5821-4) 11-20 0-5 H [facility] ChildrenUrine [id number] 20:18:00* Test Item Value Reference Range Interpretation Comments Urine RBC (test code = 01262-4) 21-50 0-5 H [facility] ChildrenUrine Tzpqanzt6419-24-65 20:18:00* Test Item Value Reference Range Interpretation Comments Urine Bacteria (test code = 41297-7) MODERATE NONE H [facility] ChildrenUrine Epithelial Qdhbc4777-67-79 20:18:00 * Test Item Value Reference Range Interpretation Comments Urine Epithelial Cells (test code = 52509-0) NONE NONE [facility] ChildrenUrine Hyaline Pbnxj9961-43-81 20:18:00* Test Item Value Reference Range Interpretation Comments Urine Hyaline Casts (test code = 80481-6) 0-1 0-1 [facility] Gvpom2013-50-78 20:18:00* Test Item Value Reference Range Interpretation Comments Urine Mucus (test code = 8247-9) FEW RARE H [facility] ChildrenUrine Mbxtp3140-64-78 20:11:00* Test Item Value Reference Range Interpretation Comments Urine Color (test code = 5778-6) YELLOW YELLOW [facility] ChildrenUrine Fizmuxv9284-79-25 20:11:00* Test Item Value Reference Range Interpretation Comments Urine Clarity (test code = 45487-3) SL CLOUDY CLEAR H [facility] ChildrenUrine Specific Qroleby7517-72-33 20:11:00 * Test Item Value Reference Range Interpretation Comments Urine Specific [place] (test code = 5811-5) 1.020 1.010-1.02 5 [facility] ChildrenUrine [id number] 20:11:00* Test Item Value Reference Range Interpretation Comments Urine pH (test code = 13306-5) 5 5-7 [facility] ChildrenUrine Leukocyte Fujorewu1982-20-74 20:11:00* Test Item Value Reference Range Interpretation Comments Urine Leukocyte Esterase (test code = 5799-2) 1+ NEGATIVE H [facility] ChildrenUrine Ohcvehl2626-88-70 20:11:00* Test Item Value Reference Range Interpretation Comments Urine Nitrite (test code = 53775-0) NEGATIVE NEGATIVE [facility] ChildrenUrine Wpnncoi0519-96-58 20:11:00* Test Item Value Reference Range Interpretation Comments Urine Protein (test code = 5804-0) 1+ NEGATIVE H [facility] ChildrenUrine Glucose (UA)2017-07-30 20:11:00* Test Item Value Reference Range Interpretation Comments Urine Glucose (UA) (test code = 2349-9) NEGATIVE NEGATIVE [facility] ChildrenUrine Wuhmjtt4410-47-98 20:11:00* Test Item Value Reference Range Interpretation Comments Urine Ketones (test code = 91784-5) TRACE NEGATIVE H [facility] ChildrenUrine Cmthgnibekft9385-97-81 20:11:00* Test Item Value Reference Range Interpretation Comments Urine Urobilinogen (test code = 35998-1) 0.2 0.2-1 [facility] ChildrenUrine Bdpvjstft3246-45-38 20:11:00* Test Item Value Reference Range Interpretation Comments Urine Bilirubin (test code = 1978-6) NEGATIVE NEGATIVE [facility] ChildrenUrine Fyisi2540-27-47 20:11:00* Test Item Value Reference Range Interpretation Comments Urine Blood (test code = 12176-2) 4+ NEGATIVE H [facility] ChildrenProthrombin Wohe0790-78-69 18:13:00* Test Item Value Reference Range Interpretation Comments Prothrombin Time (test code = 5902-2) 13.4 11.9-14.5 [facility] ChildrenProthromb Time International Ratio 2017-07-30 18:13:00* Test Item Value Reference Range Interpretation Comments Prothromb Time International Ratio (test code = 6301-6) 1.10 Oral Anticoagulant Therapy INR Values:1. Low Intensity Therapy 1.5 - 2.02 . Moderate Intensity Therapy 2.0 - 3.03. High Intensity Therapy(1) 2.5 - 3. 54. High Intensity Therapy(2) 3.0 - 4.05. Panic Value INR > 5.0 [facility] ChildrenActivated Partial Thromboplast Time 2017-07-30 18:13:00* Test Item Value Reference Range Interpretation Comments Activated Partial Thromboplast Time (test code = 53719-1) 23.8 23.8-35.5 [facility] ChildrenLactic Acid Rtdqe2466-11-41 16:56:00* Test Item Value Reference Range Interpretation Comments Lactic Acid Level (test code = Lactic Acid Level) 21.3 4.5- 19.8 [facility] Cisnj5171-07-21 14:44:00* Test Item Value Reference Range Interpretation Comments Sodium Level (test code = 2951-2) 145 136-145 [facility] ChildrenPotassium Bwqrf4449-93-46 14:44:00* Test Item Value Reference Range Interpretation Comments Potassium Level (test code = 2823-3) 4.1 3.5-5.1 [facility] ChildrenChloride Jxdwc0994-06-40 14:44:00* Test Item Value Reference Range Interpretation Comments Chloride Level (test code = 2075-0) 112 98-107 H [facility] ChildrenCarbon Dioxide Zjezu0683-36-94 14:44:00* Test Item Value Reference Range Interpretation Comments Carbon Dioxide Level (test code = 2028-9) 29 22-29 [facility] ChildrenAnion Spl6613-64-92 14:44:00* Test Item Value Reference Range Interpretation Comments Anion Gap (test code = 70404-1) 8.1 8-16 [facility] ChildrenBlood Urea Nwnayjbl1272-78-38 14:44:00* Test Item Value Reference Range Interpretation Comments Blood Urea Nitrogen (test code = 3094-0) 6 7-26 L [facility] ChildrenCreatinine2018-02-04 14:44:00* Test Item Value Reference Range Interpretation Comments Creatinine (test code = 2160-0) 0.80 0.72-1.25 [facility] ChildrenBUN/Creatinine Rzstv2186-93-87 14:44:00* Test Item Value Reference Range Interpretation Comments BUN/Creatinine Ratio (test code = 3097-3) 8 6-25 [facility] ChildrenEstimat Glomerular Filtration Rate 2017-06-13 14:44:00* Test Item Value Reference Range Interpretation Comments Estimat Glomerular Filtration Rate (test code = 83296-9) 60- >60 Ranges were taken from the National Kidney Disease Education Program and the [facility] [employer] [employer] literature.Reference ranges:60 or greater: Jqjduf94-24 ( for 3 consecutive months): Chronic kidney disease 15 or less: Kidney failureTexas [facility] Hospital for ChildrenGlucose Iljvn4550-05-33 14:44:00* Test Item Value Reference Range Interpretation Comments Glucose Level (test code = SSM9792) 125 74-118 H [facility] ChildrenCalcium Xfdrs8516-20-03 14:44:00* Test Item Value Reference Range Interpretation Comments Calcium Level (test code = 19203-2) 8.4 8.4-10.2 [facility] ChildrenWhite Blood Tpgsa5182-55-38 14:33:00* Test Item Value Reference Range Interpretation Comments White Blood Count (test code = 6690-2) 4.27 4.8-10.8 L [facility] ChildrenRed Blood Uncam4650-55-70 14:33:00* Test Item Value Reference Range Interpretation Comments Red Blood Count (test code = 789-8) 4.21 4.3-5.7 L [facility] ChildrenHemoglobin2018-02-04 14:33:00* Test Item Value Reference Range Interpretation Comments Hemoglobin (test code = 08881-6) 13.3 14.0-18.0 L [facility] ChildrenHematocrit2018-02-04 14:33:00* Test Item Value Reference Range Interpretation Comments Hematocrit (test code = 4544-3) 41.1 38.2-49.6 [facility] ChildrenMean Corpuscular Tknguz8248-46-18 14:33:00* Test Item Value Reference Range Interpretation Comments Mean Corpuscular Volume (test code = 787-2) 97.6 81-99 [facility] ChildrenMean Corpuscular Vgkvxdsrfq7613-14-71 14:33:00* Test Item Value Reference Range Interpretation Comments Mean Corpuscular Hemoglobin (test code = 785-6) 31.6 28-32 [facility] ChildrenMean Corpuscular Hemoglobin Concent 2017-06-13 14:33:00* Test Item Value Reference Range Interpretation Comments Mean Corpuscular Hemoglobin Concent (test code = 786-4) 32.4 31-35 [facility] ChildrenRed Cell Distribution Wiwtx9031-31-11 14:33:00* Test Item Value Reference Range Interpretation Comments Red Cell Distribution Width (test code = 32573-7) 13.2 11.7 -14.4 [facility] ChildrenPlatelet Bhoae6568-23-21 14:33:00* Test Item Value Reference Range Interpretation Comments Platelet Count (test code = 777-3) 153 140-360 [facility] ChildrenNeutrophils (%) (Auto)2017-06-13 14:33:00 * Test Item Value Reference Range Interpretation Comments Neutrophils (%) (Auto) (test code = 52812-5) 62.5 38.7-80.0 [facility] ChildrenLymphocytes (%) (Auto)2017-06-13 14:33:00 * Test Item Value Reference Range Interpretation Comments Lymphocytes (%) (Auto) (test code = 736-9) 24.4 18.0-39.1 [facility] ChildrenMonocytes (%) (Auto)2017-06-13 14:33:00* Test Item Value Reference Range Interpretation Comments Monocytes (%) (Auto) (test code = 5905-5) 8.2 4.4-11.3 [facility] ChildrenEosinophils (%) (Auto)2017-06-13 14:33:00 * Test Item Value Reference Range Interpretation Comments Eosinophils (%) (Auto) (test code = 713-8) 3.5 0.0-6.0 [facility] ChildrenBasophils (%) (Auto)2017-06-13 14:33:00* Test Item Value Reference Range Interpretation Comments Basophils (%) (Auto) (test code = 706-2) 1.2 0.0-1.0 H [facility] ChildrenIM GRANULOCYTES %2017-06-13 14:33:00* Test Item Value Reference Range Interpretation Comments IM GRANULOCYTES % (test code = IM GRANULOCYTES %) 0.2 0.0- 1.0 [facility] ChildrenNeutrophils # (Auto)2017-06-13 14:33:00* Test Item Value Reference Range Interpretation Comments Neutrophils # (Auto) (test code = 751-8) 2.7 2.1-6.9 [facility] ChildrenLymphocytes # (Auto)2017-06-13 14:33:00* Test Item Value Reference Range Interpretation Comments Lymphocytes # (Auto) (test code = 38421-0) 1.0 1.0-3.2 [facility] ChildrenMonocytes # (Auto)2017-06-13 14:33:00* Test Item Value Reference Range Interpretation Comments Monocytes # (Auto) (test code = 742-7) 0.4 0.2-0.8 [facility] ChildrenEosinophils # (Auto)2017-06-13 14:33:00* Test Item Value Reference Range Interpretation Comments Eosinophils # (Auto) (test code = 711-2) 0.2 0.0-0.4 [facility] ChildrenBasophils # (Auto)2017-06-13 14:33:00* Test Item Value Reference Range Interpretation Comments Basophils # (Auto) (test code = 704-7) 0.1 0.0-0.1 [facility] ChildrenAbsolute Immature Granulocyte (auto 2017-06-13 14:33:00* Test Item Value Reference Range Interpretation Comments Absolute Immature Granulocyte (auto (sona t code = Absolute Immature Granulocyte (auto) 0.01 0-0.1 [facility] ChildrenVancomycin Level Ryiuoo2896-68-44 12:05:00* Test Item Value Reference Range Interpretation Comments Vancomycin Level Trough (test code = 4092-3) 13.7 5.0-10.0 HH Results called to RAJI MAX RN at 1204 on 06/12/17 by Erica Joseph. RB [place].[facility] ChildrenVancomycin Level Otcfdt1185-09-02 12:05:00* Test Item Value Reference Range Interpretation Comments Vancomycin Level Trough (test code = 4092-3) 13.7 5.0-10.0 Results called to RAJI MAX RN at 1204 on 06/12/17 by Erica Joseph. RB [place].[facility] ChildrenMagnesium Smzgt9510-44-14 16:52:00* Test Item Value Reference Range Interpretation Comments Magnesium Level (test code = 60053-1) 1.9 1.3-2.1 [facility] ChildrenUrine Juovtgu7980-75-18 05:29:00* Test Item Value Reference Range Interpretation Comments Urine Culture (test code = 630-4) Organism: STAPHYLOCOCCUS EPIDERMI DIS [facility] ChildrenUrine Ahfpebu0467-83-04 05:29:00* Test Item Value Reference Range Interpretation Comments Urine Culture (test code = 630-4) Organism: STAPHYLOCOCCUS EPIDERMI DIS [facility] ChildrenB-Type Natriuretic Wfebgwd2299-78-68 11:26:00* Test Item Value Reference Range Interpretation Comments B-Type Natriuretic Peptide (test code = 46818-6) 25.2 0-100 [facility] ChildrenB-Type Natriuretic Xwotczc2072-35-52 11:26:00* Test Item Value Reference Range Interpretation Comments B-Type Natriuretic Peptide (test code = 79669-7) 25.2 0-100 [facility] ChildrenCreatine Kinase MQ8922-41-60 09:08:00* Test Item Value Reference Range Interpretation Comments Creatine Kinase MB (test code = 26303-3) 0.80 0.00-5.00 [facility] ChildrenTroponin [id number] 09:08:00* Test Item Value Reference Range Interpretation Comments Troponin I (test code = 05085-3) 0.025 0-0.300 [facility] Lewzstr3690-34-07 07:39:00* Test Item Value Reference Range Interpretation Comments Bedside Glucose (test code = 39387-9) 66 70-120 L Meter ID: [id number] Children's Hospital Glucose 2017-05-27 07:39:00* Test Item Value Reference Range Interpretation Comments Bedside Glucose (test code = 57409-7) 66 70-120 L Meter ID: [id number] [facility] Hospital for ChildrenCreatine Kinase 2017-05-27 07:29:00* Test Item Value Reference Range Interpretation Comments Creatine Kinase (test code = 2157-6) 30 30-200 [facility] ChildrenUrine [id number] 15:16:00* Test Item Value Reference Range Interpretation Comments Urine WBC (test code = 5821-4) 6-10 0-5 H [facility] ChildrenUrine IQU0468-50-79 15:16:00* Test Item Value Reference Range Interpretation Comments Urine RBC (test code = 27839-9) 21-50 0-5 H [facility] ChildrenUrine Vizmtcxo2587-34-89 15:16:00* Test Item Value Reference Range Interpretation Comments Urine Bacteria (test code = 03297-7) MANY NONE H [facility] ChildrenUrine Epithelial Wuilv7968-32-91 15:16:00 * Test Item Value Reference Range Interpretation Comments Urine Epithelial Cells (test code = 39661-7) RARE NONE [facility] ChildrenUrine Givdm2196-53-14 15:16:00* Test Item Value Reference Range Interpretation Comments Urine Mucus (test code = 8247-9) MODERATE RARE H [facility] ChildrenUrine Mpaov9017-28-72 15:08:00* Test Item Value Reference Range Interpretation Comments Urine Color (test code = 5778-6) YELLOW YELLOW [facility] ChildrenUrine Vmbcyjv8335-07-81 15:08:00* Test Item Value Reference Range Interpretation Comments Urine Clarity (test code = 25222-5) SL CLOUDY CLEAR H [facility] ChildrenUrine Specific Ixjnwxi6625-19-76 15:08:00 * Test Item Value Reference Range Interpretation Comments Urine Specific [place] (test code = 5811-5) 1.025 1.010-1.02 5 [facility] ChildrenUrine iJ0478-41-35 15:08:00* Test Item Value Reference Range Interpretation Comments Urine pH (test code = 26108-5) 6 5-7 [facility] ChildrenUrine Leukocyte Dyzyybxa8304-02-48 15:08:00* Test Item Value Reference Range Interpretation Comments Urine Leukocyte Esterase (test code = 5799-2) 1+ NEGATIVE H [facility] ChildrenUrine Warwywn7858-38-93 15:08:00* Test Item Value Reference Range Interpretation Comments Urine Nitrite (test code = 48304-8) POSITIVE NEGATIVE H [facility] ChildrenUrine Rhsfxis0710-63-11 15:08:00* Test Item Value Reference Range Interpretation Comments Urine Protein (test code = 5804-0) 2+ NEGATIVE H [facility] ChildrenUrine Glucose (UA)2017-05-26 15:08:00* Test Item Value Reference Range Interpretation Comments Urine Glucose (UA) (test code = 2349-9) NEGATIVE NEGATIVE [facility] ChildrenUrine Xufolxc7173-77-62 15:08:00* Test Item Value Reference Range Interpretation Comments Urine Ketones (test code = 94560-3) TRACE NEGATIVE H [facility] Cvrngaepehxc0300-49-51 15:08:00* Test Item Value Reference Range Interpretation Comments Urine Urobilinogen (test code = 24358-2) 0.2 0.2-1 [facility] Uzlhogluv1270-59-21 15:08:00* Test Item Value Reference Range Interpretation Comments Urine Bilirubin (test code = 1978-6) 1+ NEGATIVE H Confirmatory test currently unavailable. False positive results may occur.[facility] Ygnky5911-36-43 15:08:00* Test Item Value Reference Range Interpretation Comments Urine Blood (test code = 04475-8) 4+ NEGATIVE H [facility] ChildrenThyroid Stimulating Hormone (TSH) 2017-05-26 14:19:00* Test Item Value Reference Range Interpretation Comments Thyroid Stimulating Hormone (TSH) (test code = 71845-0) 1.525 0.350-4.940 [facility] ChildrenThyroid Stimulating Hormone (TSH) 2017-05-26 14:19:00* Test Item Value Reference Range Interpretation Comments Thyroid Stimulating Hormone (TSH) (test code = 06789-7) 1.525 0.350-4.940 [facility] ChildrenTotal Gntfrxhdt6268-28-26 14:00:00* Test Item Value Reference Range Interpretation Comments Total Bilirubin (test code = 1975-2) 0.9 0.2-1.2 [facility] ChildrenAspartate Amino Transf (AST/SGOT) 2017-05-26 14:00:00* Test Item Value Reference Range Interpretation Comments Aspartate Amino Transf (AST/SGOT) (test code = Aspartate Amino Transf (AST/SGOT)) 14 5-34 [facility] ChildrenAlanine Aminotransferase (ALT/SGPT) 2017-05-26 14:00:00* Test Item Value Reference Range Interpretation Comments Alanine Aminotransferase (ALT/SGPT) (test code = 1742-6) 13 0-55 [facility] ChildrenTotal Vbkpwnl4685-99-38 14:00:00* Test Item Value Reference Range Interpretation Comments Total Protein (test code = 2885-2) 5.8 6.5-8.1 L [facility] ChildrenAlbumin2018-01-17 14:00:00* Test Item Value Reference Range Interpretation Comments Albumin (test code = 1751-7) 3.6 3.5-5.0 [facility] ChildrenGlobulin2018-01-17 14:00:00* Test Item Value Reference Range Interpretation Comments Globulin (test code = 49752-0) 2.2 2.3-3.5 L [facility] [id number] 14:00:00 * Test Item Value Reference Range Interpretation Comments Albumin/Globulin Ratio (test code = 1759-0) 1.6 0.8-2.0 [facility] ChildrenAlkaline [id number] 14:00:00* Test Item Value Reference Range Interpretation Comments Alkaline Phosphatase (test code = 6768-6) 79 40-150 [facility]2018-01-17 13:52:00* Test Item Value Reference Range Interpretation Comments Ammonia (test code = 23283-3) 34 31-123 [facility]2018-01-17 13:52:00* Test Item Value Reference Range Interpretation Comments Ammonia (test code = 27941-6) 34 31-123 [facility][Q] CULTURE, URINE, [id number] 00:00:00* Test Item Value Reference Range Interpretation Comments CULTURE (test code = CULTURE) See Comment A CULTURE, URINE, SPECIAL MICRO NUMBER: [id number] TEST STATUS: FINAL SPECIMEN SOURCE: OTHER (SPECIFY) SPECIMEN QUALITY: ADEQUATE RESULT: 1,000-10,000 CFU/mL of Streptococcus viridans group May represent colonizers from external and internal genitalia. No further testing (including susceptibility) will be performed. [facility][Q] CYTOLOGY, [id number] 00:00:00* Test Item Value Reference Range Interpretation Comments CLINICAL INFORMATION (test code = CLINICAL INFORMATION) See Comment N Gross hematuria SCREENER (test code = SCREENER) See Comment N JGM, CT(ASCP)CT screening location: [address], [place] [address] PATHOLOGIST (test code = PATHOLOGIST) See Comment N Hector Esposito MD,Board Certified in Anatomic [phone] (electronic signature) Source (test code = Source) See Comment BLADDER Gross Description (test code = Gross Description) See Comment Bladder 70 ml of cloudy dark yellow fluid, 1 ThinPrep. Verified as to patient ID/name. Gross exam(s) performed at: [facility] [place] [address] Back Hand: MORGAN CHAUDHARY M.D. A DIAGNOSIS (test code = A DIAGNOSIS) See Comment Negative for malignancy.See microscopic description. MICROSCOPIC DESCRIPTION:One ThinPrep is examined. This slide shows squamous and urothelial cells. No malignant cells are identified. [facility] 2 views [id number] 12:25:00EXAM: XR CHEST 2 VIEWSDATE: 04/05/2017 12:25 PM CSTINDICATION: - R05 CoughCOM PARISON: CXR 10/22/2015TECHNIQUE: PA and lateral chest radiographsFINDINGS:Lines and tubes: None.Lungs and pleura: No definite consolidations or cavitations.Mi ld blunting of the bilateral costophrenic angles, greater on the left, couldindi slim pleural thickening versus trace pleural effusion.No pneumothorax.Heart and mediastinum: The cardiac silhouette is unchanged and slightlyprominent with tort uous thoracic aorta.Bones: Mild wedge compression deformity of the mid thoracic spine. Degenerativechanges of the thoracic spine.Soft tissues: Unremarkable.IMPR ESSION: 1. No consolidations or cavitations.2. Mild bilateral costophrenic ang le blunting could be related to pleuralthickening versus trace pleural effusion. Follow-up radiograph in 8-12 weeks todocument resolution vs changes is recommen ded.3. Degenerative changes of the thoracic spine with mild wedge compressionde formity of the mid thoracic spine.--Read by: Tera Bynum MDDictated Date/time: 04/05/17 12:43Electronically Signed by: Tera Bynum MD 04/05/1712:48FINAL REPORTUnJordan [facility]] CMP [id number] 11:50:00* Test Item Value Reference Range Interpretation Comments GLUCOSE; Normal (test code = 1547-9) 90 mg/dl 65-99 N Fasting reference interval UREA NITROGEN (BUN) (test code = UREA NITROGEN (BUN)) 14 mg/dl 7-25 N CREATININE (test code = CREATININE) 0.99 mg/dl 0.70-1.18 N For patients >49 years of age, the reference limitfor Creatinine is approximately 13% higher for peopleidentified as -[place]yr[place]. eGFR NON- (test code = eGFR NON-JO N PANAMANIAN) 76 {ML/MIN/1.7} > OR = 60 N eGFR (test code = eGFR ) 88 {ML/MIN/1.7} > OR = 60 N BUN/CREATININE RATIO (test code = BUN/CREATININE RATIO) NOT APPLICA BLE 6-22 SODIUM (test code = SODIUM) 144 mmol/L 135-146 N POTASSIUM (test code = POTASSIUM) 4.3 mmol/L 3.5-5.3 N CHLORIDE (test code = CHLORIDE) 106 mmol/L 98-110 N CARBON DIOXIDE (test code = CARBON DIOXIDE) 32 mmol/L 20-31 CALCIUM (test code = CALCIUM) 9.3 mg/dl 8.6-10.3 N PROTEIN, TOTAL (test code = PROTEIN, TOTAL) 5.8 g/dl 6.1-8.1 ALBUMIN (test code = ALBUMIN) 4.0 g/dl 3.6-5.1 N GLOBULIN (test code = GLOBULIN) 1.8 {G/DL CALC} 1.9-3.7 ALBUMIN/GLOBULIN RATIO (test code = ALBUMIN/GLOBULIN RATIO) 2.2 {CALC} 1.0-2.5 N BILIRUBIN, TOTAL; Normal (test code = 23442-9) 0.8 mg/dl 0.2-1.2 N ALKALINE PHOSPHATE (test code = ALKALINE PHOSPHATE) 85 u/l 40 -115 N AST; Normal (test code = 1916-6) 13 u/l 10-35 N ALT; Normal (test code = 1742-6) 11 u/l 9-46 N [facility]] CBC (INCLUDES DIFF/PLT)2017-04-05 11:50:00* Test Item Value Reference Range Interpretation Comments WHITE BLOOD CELL COUNT (test code = WHITE BLOOD CELL COUNT) 5.2 {Thousand/u} 3.8-10.8 N RED BLOOD CELL COUNT (test code = RED BLOOD CELL COUNT) 4.70 {Million/uL} 4.20-5.80 N HEMOGLOBIN; Normal (test code = 90227-3) 15.1 g/dl 13.2-17.1 N HEMATOCRIT; Normal (test code = 4544-3) 44.6 % 38.5-50.0 N MCV; Normal (test code = 787-2) 94.9 fL 80.0-100.0 N MCHC; Normal (test code = 96672-6) 33.9 g/dl 32.0-36.0 N RDW; Normal (test code = 788-0) 12.4 % 11.0-15.0 N PLATELET COUNT; Normal (test code = 777-3) 156 {Thousand/u} 140-400 N MPV; Normal (test code = 95355-5) 12.1 fL 7.5-12.5 N ABSOLUTE NEUTROPHILS (test code = ABSOLUTE NEUTROPHILS) 3255 {cells/uL} 6764-0987 N ABSOLUTE LYMPHOCYTES (test code = ABSOLUTE LYMPHOCYTES) 1331 {cells/uL} 850-3900 N ABSOLUTE MONOCYTES (test code = ABSOLUTE MONOCYTES) 421 {cells/uL} 200-950 N ABSOLUTE EOSINOPHILS (test code = ABSOLUTE EOSINOPHILS) 130 {cells/ uL} 15-500 N ABSOLUTE BASOPHILS (test code = ABSOLUTE BASOPHILS) 62 {cells/uL} 0 -200 N NEUTROPHILS (test code = NEUTROPHILS) 62.6 % N LYMPHOCYTES (test code = LYMPHOCYTES) 25.6 % N MONOCYTES; Normal (test code = 16238-2) 8.1 % N EOSINOPHILS; Normal (test code = 95167-3) 2.5 % N BASOPHILS; Normal (test code = 71008-7) 1.2 % N [facility][O] Urine Dipstick (In Office)2017-04-05 10:30:45 * Test Item Value Reference Range Interpretation Comments LEUKOCYTES (test code = LEUKOCYTES) trace NITRITE; Normal (test code = 86038-9) neg N UROBILINOGEN; Normal (test code = 26176-4) neg N PROTEIN (test code = 43065-4) trace pH (test code = pH) 5 N URINE BLOOD; Normal (test code = 96838-2) neg N SPECIFIC GRAVITY; Normal (test code = 2965-2) 1.015 N KETONES; Normal (test code = 76497-7) neg N BILIRUBIN; Abnormal (test code = 63240-1) + A GLUCOSE; Normal (test code = 1547-9) normal N COLOR URINE; Normal (test code = 5778-6) yellow N APPEARANCE; Normal (test code = 5767-9) clear N [facility]] CULTURE, URINE, [id number] 00:00:00* Test Item Value Reference Range Interpretation Comments CULTURE (test code = CULTURE) See Comment CULTURE, URINE, ROUTINE MICRO NUMBER: [id number] TEST STATUS: FINAL SPECIMEN SOURCE: URINE SPECIMEN QUALITY: ADEQUATE RESULT: Multiple organisms present, each less than 10,000 CFU/mL. These organisms, commonly found on external and internal genitalia, are considered to be colonizers. No further testing performed. [facility] 2 VIEWS [place] [address] Patient Name: DNEITA MASON MR #: [id number] : 1945 Age/Sex: 71/M Req #: [id number] Adm Physician: Ordered by: CHANTALE MCKINLEY MD, MD Report #: [id number] Location: Room/Bed: Procedure: [id number] DX/CHEST 2 VIEWS Exam Date : 07/30/17 Exam Time: 1500 REPORT STATUS: Urby d PROCEDURE: Frontal and lateral views of the chest. COMPARISON: Ches t radiograph 05/26/2017 INDICATIONS: AMS FINDINGS: Lines/tube s: None. Lungs: The lungs are well inflated and clear. There is no evide nce of pneumonia or pulmonary edema. Pleura: There is no pleural effus ion or pneumothorax. Heart and mediastinum: Tortuous aorta. The heart and the mediastinum are normal. Bones: No acute bony abnormality. I MPRESSION: No acute cardiopulmonary disease. Dictated by: Luis Fernando Curiel M.D. on 07/30/2017 at 15:29 Electronically approved by: Luis Fernando davila M.D. on 07/30/2017 at 15:29 Dictated By: LUIS FERNANDO CURIEL MD 152 Transcribed By: IN FCE on 07/30/17 1529 COPY TO: CHANTALE MCKINLEY CT BRAIN WO [place] [address] Patient Name: DENITA MASON MR #: [id number] : 0 1945 Age/Sex: 71/M Req #: [id number] Adm Physician: Ordered by: CHANTALE MCKINLEY MD, MD Report #: [id number] Location: ER Room/ Bed: Procedure: [id number] CT/CT BRAIN WO Exam Date: 07/30/17 Exam Time: 1455 REPORT STATUS: Signed Examination: CT head without contrast Clinical Indication: Altered mental s tatus. Technique: Transaxial noncontrast images from the skull base through th e vertex were obtained. Sagittal and coronal reformatted images were done. C omparison: None. Findings: Scalp: No abnormalities. Bones: Intact. N o fractures. No blastic or lytic lesions. Brain sulci: Appropriate for pa tient's age. Ventricles: Normal in size and configuration. No hydrocephalus. . Extra-axial space: No abnormalities. Parenchyma: There are wilson btle patchy areas of low-attenuation within subcortical and periventricular wh ite matter, nonspecific, but could represent microvascular ischemic disease. No masses, hemorrhage, or acute or chronic cortical based vascular insults. Suprasellar region: No abnormalities. Craniocervical junction: The foramen m agnum is patent. No Chiari one malformation. Incidental findings: Ath erosclerotic calcification of the cavernous and supraclinoid internal carotid arteries. Impression: 1. No acute intracranial abnormalities. 2. Mild chronic microvascular ischemic change. Signed by: Dr. Dieter feldman M.D. on 07/30/2017 3:47 PM Dictated By: DIETER GUZMAN MD E lectronically Signed By: DIETER GUZMAN MD on 07/30/17 1547 Transcrib ed By: PACHECO on 07/30/17 1547 COPY TO: CHANTALE MCKINLEY PELVIC (NON OB) ROBISON OR F/U [place] [address] Patient Name: DENITA MASON MR #: [id number] : 1945 Age/Sex: 71/M Req #: [id number] Adm Physician: Ordered by: CHANTALE MCKINLEY MD, MD Report #: [id number] Location: ER Room/Bed: Procedure: [id number] US/US PELVIC (NON OB) ROBISON O R F/U Exam Date: Exam Time: REPORT STATUS: S igned PROCEDURE: US PELVIC (NON OB) ROBISON OR F/U COMPARISON: None. DALILA CATIONS: POST RESIDUAL TECHNIQUE: Grayscale transverse and sagittal transabd ominal images were obtained of the bladder. FINDINGS: Bladder : Nonspecific intraluminal debris. Both ureteral jets visualized. Mild blad gokul trabeculations and circumferential wall thickening which may reflect detr usor hypertrophy. Prevoid volume: 283 cc Postvoid volume: 224 cc Prostate: 5.1 x 5.5 x 6.4 cm (93.6 cc), enlarged. CONCLUSION: 1 . Postvoid residuals without significant interval change from prevoid bladder volume. 2. Nonspecific debris within the bladder. Recommend correlation with urinalysis. 3. Enlarged prostate. Dictated by: Luis Fernando flores M.D. on 07/30/2017 at 18:42 Electronically approved by: Luis Fernando Curiel M.D. on 07/30/2017 at 18:42 Dictated By: LUIS FERNANDO CURIEL MD Nataly ctronically Signed By: LUIS FERNANDO CURIEL MD on 07/30/171841 Transcribed By: NANCY on 07/30/171841 COPY TO: CHANTALE MCKINLEY ECHO COMPLETE (ECHOCARDIOGRAM) [place] [address] Patient Name : DENITA MASON MR #: [id number] : 1945 Age/Sex: 71/M Adm Physician : TITA SALCEDO MD Admit Date : 05/27/17 [facility] : [facility]Bed : [facility] REPORT: Cardiology Report DATE OF STUDY: May 27, 2017 ECHOCARDIOGRAM M-MODE: Dilated left atrium. Top normal left ventricular size. Diminished left ventricular contractility. Normal mitral and aortic valves. No pericardial effusion. SECTOR SCAN: Dilated left atrium. Top normal left ventricular size. Di minished left ventricular contractility. Ejection fraction 30% to 35%. Mitr al, aortic and tricuspid valves are grossly normal. There is no pericardial effusion. CARDIAC DOPPLER STUDY WITH COLOR: 1+ aortic regurgitation. 1 to 2+ mitral regurgitation. Trace tricuspid regurgitation. There is evidence of diastolic dysfunction. CONCLUSIONS 1. Diminished left ventricular c ontractility. Ejection fraction estimated at 30% to 35%. 2. Evidence of di astolic dysfunction. 3. Mild to moderate mitral regurgitation with dilated lef t atrium. 4. Mild aortic regurgitation. 5. Trace tricuspid regurgitation. Job#: [id number] KB cc: TITA SALCEDO MD Signature Date Dictated By: LUPE NAVARRO MD Transcribed By: EDS on 05/28/17 <Electronically signed by LUPE NAVARRO MD><<Signature on File>>06/01/17 1016 COPY TO: CHEST SINGLE (PORTABLE) [place] [address] Patient Name: DENITA MASON MR #: [id number] : 1945 Age/Sex: 71/M Req #: [id number] Adm Physician: Ordered by: DENITA VALERIO MD Report #: [id number] Location: ER Room/Bed: Procedure: [id number] DX/CHEST SINGLE (PORTABLE) E xam Date: 05/26/17 Exam Time: 1525 REPORT STATU S: Signed EXAMINATION: CHEST SINGLE (PORTABLE) INDICATION: COMPARISON: None FINDINGS: AP view TUBES and LINES: None. LUNGS: Lungs are well inflated. Lungs are clear. There is no evidence of pneumonia or pulmonary edema. PLEURA: No pleural effusio n or pneumothorax. HEART AND MEDIASTINUM: The cardiomediastinal silhouette is unremarkable. BONES AND SOFT TISSUES: No acute osseous lesion. So ft tissues are unremarkable. UPPER ABDOMEN: No free air under the diaphra gm. IMPRESSION: No acute thoracic abnormality. Signed by: DR Paulie Curiel MD on 05/26/2017 4:11 PM Dictated By: LUIS FERNANDO CURIEL MD E lectronically Signed By: LUIS FERNANDO CURIEL MD on 05/26/17 1611 Transcribed By: TERESA KAY on 05/26/17 1611 COPY TO: DENITA VALERIO MD
[2020-02-09] MEDS ORDERED: HALOPERIDOL LACTATE 5 MG/ML VIAL ONE (20:12)
[2020-02-09] MEDS ORDERED: LORAZEPAM INJ 2 MG/ML VIAL ONE (20:13)
[2020-02-09] MEDS ORDERED: LORAZEPAM INJ 2 MG/ML VIAL IM ONE (20:15)
[2020-02-09] MEDS ORDERED: GEODON20 MG PO (20:54)
[2020-02-09] MEDS ORDERED: MACROBID 100 M100 MG PO (20:55)
--- NOTE | 2020-02-09 21:12 | Emergency Department Note ---
History of Present Illnes History of Present Illness Chief Complaint: Genitourinary History of Present Illness This is a 74 year old male Chief Complaint Comment PT BROUGHT IN BY AND DAUGHTER FOR INCREASING STATE OF AGITATION, PER FAMILY PT HAS NOT BEEN COMBATIVE BUT THEY'RE HAVING TO GET MORE PHYSICAL WITH PATIENT IN ORDER FOR PATIENT TO COMPLY WITH SIMPLE COMMANDS, FAMILY THINKS HE MAY HAVE A UTI? DENY FEVERS OR ANYURINARY SYMPTOMS OTHER THAN HE DOESN'T GO VERY MUCH TO URNINATE, PT DX'D WITH DEMENTIA AND IS PROCESS OF BEING REASSESSED BC FAMILY THINKS HE IS DOING BETTER, UNTIL PAST 2 DAYS BEHAVIORIAL HAS CHANGED DRASTICALLY, PT COMBATIVE WITH STAFF AND ASKING FOR DOCTOR AND DOCTOR ONLY, NAD NOTED OTHER THAT AGITATION BEHAVIOR. . Onset (how long ago): day(s) (5) Location: agitation Quality: all over Radiation: Denies non-radiation, Denies back, Denies neck, Denies extremity, Denies abdomen, Denies periumbilical, Denies flank, Denies proximal, Denies distal, Denies other Severity: moderate Onset quality: gradual Duration (how long): week(s) (1) Timing of current episode: constant Progression: worsening Chronicity: new Context: Denies recent illness, Denies recent surgery, Denies recent immo bilization, Denies recent travel, Denies trauma/injury, Denies new medications, Denies hx of DVT/PE, Denies non-compliance w/ medications, Denies other Relieving factors: none Exacerbating factors: none Associated symptoms: Denies denies other symptoms, Denies confusion, Denies chest pain, Denies cough, Denies diaphoresis, Denies fever/chills, Denies headaches, Denies loss of appetite, Denies malaise, Denies nausea/vomiting, Denies rash, Denies seizure, Denies shortness of breath, Denies syncope, Denies weakness, Denies other Treatments prior to arrival: none Past Medical/Family History Physician Review I have reviewed the patient's past medical and family history. Any updates have been documented here. Past Medical History Past Medical History: A-Fib, UTI's Other Medical History: BPH INDWELLING CATHETER DEMENIA Other Surgery: HERNIA REPAIR TESTICLE REMOVED PROSTATE REMOVED Social History Smoking Cessation: Never Smoker Alcohol Use: None Other Last Tetanus: UNKNOWN Review of Systems Review of Systems Constitutional: Reports no symptoms, Reports weakness EENTM: Reports no symptoms Cardiovascular: Reports no symptoms Respiratory: Reports no symptoms Gastrointestinal: Reports no symptoms Genitourinary: Reports no symptoms Musculoskeletal: Reports no symptoms Integumentary: Reports no symptoms Neurological: Reports as per HPI Psychological: Reports as per HPI Endocrine: Reports no symptoms Hematological/Lymphatic: Reports no symptoms Physical Exam Related Data Allergies: Coded Allergies: tobramycin (Verified Allergy, Unknown, 04/06/09) Vital signs reviewed: Yes Physical Exam CONSTITUTIONAL Constitutional: Present well-developed, Present well-nourished HENT HENT: Present normocephalic, Present atraumatic, Present oropharynx clear/moist, Present nose normal HENT L/R: Present left ext ear normal, Present right ext ear normal EYES Eyes: Reports PERRL, Reports conjunctivae normal NECK Neck: Present ROM normal PULMONARY Pulmonary: Present effort normal, Present breath sounds normal CARDIOVASCULAR Cardiovascular: Present regular rhythm, Present heart sounds normal, Present capillary refill normal, Present normal rate GASTROINTESTINAL Abdominal: Present soft, Present nontender, Present bowel sounds normal GENITOURINARY Genitourinary: Present exam deferred SKIN Skin: Present warm, Present dry MUSCULOSKELETAL Musculoskeletal: Present ROM normal NEUROLOGICAL Neurological: Present alert, Present no gross motor or sensory deficits, Present other (agitation) PSYCHOLOGICAL Psychological: Present other (agitation dementia) Assessment & Plan Medical Decision Making [facility] dementia Reassessment Reassessment time: 21:12 Reassessment better Assessment & Plan Final Impression: (1) Dementia (2) Agitation (3) Weakness Depart Disposition: HOME, SELF-retirement Meds Active Scripts Nitrofurantoin Monohyd/M-Cryst (MACROBID 100 MG CAPSULE) 100 Mg Capsule, 100 MG PO BIDWM, #10 CAP Prov:RICARDO ELLIS MD 02/09/20 Ziprasidone (GEODON) 20 Mg Cap, 20 MG PO BID for agitation, #20 Prov:RICARDO ELLIS MD 02/09/20 Reported Medications Polyethylene Glycol 3350 (MIRALAX) 17 Gm Powd.pack, 0.5 PKT PO DAILY 07/31/17 Aspirin (ASPIRIN) 81 Mg Tab.chew, 1 TAB PO DAILY 05/26/17 Aripiprazole (ABILIFY) 5 Mg Tablet, 2 MG PO DAILY, #30 TAB 05/26/17 Tamsulosin Hcl* (FLOMAX*) 0.4 Mg Cap, 0.4 MG PO DAILY, #30 CAP 05/26/17 Finasteride (FINASTERIDE) 5 Mg Tablet, 5 MG PO DAILY, #30 TAB 05/26/17 Medications in the ED Haloperidol Lactate 5 mg STK-MED ONCE .ROUTE ; Start 02/09/20 at 20:12; Stop 02/09/20 at 20:05; Status DC Lorazepam 1 mg ONCE ONCE IM Last administered on 02/09/20at 20:10; Admin Dose 1 MG; Start 02/09/20 at 20:15; Stop 02/09/20 at 20:16; Status DC Haloperidol Lactate 5 mg ONCE STAT IM Last administered on 02/09/20at 20:10; Admin Dose 5 MG; Start 02/09/20 at 20:03; Stop 02/09/20 at 20:08; Status DC Lorazepam 2 mg STK-MED ONCE .ROUTE ; Start 02/09/20 at 20:13; Stop 02/09/20 at 20:09; Status DC RICARDO ELLIS MD Feb 09, 2020 21:12
== END 2020-02-09 21:15 | disposition home or self-care (01) ==
LOC: FSED 20:08
DX: F03.90 Unspecified dementia, unspecified severity, without behavioral disturbance, psychotic disturbance, mood disturbance, and anxiety (principal); R45.1 Restlessness and agitation; R53.1 Weakness; I48.91 Unspecified atrial fibrillation
CPT/HCPCS: 99282; J1630; J2060

== ENCOUNTER 2020-02-12 13:51 | Emergency (ER) | payer OTHER ==
[~2020-02-12] VITALS: Ht 175.3 cm; Wt 65.3 kg
[~2020-02-12 13:51] MED LIST changes: +GEODON20 MG PO; +MACROBID 100 M100 MG PO
--- NOTE | 2020-02-12 14:11 | NUR ---
PATIENT HOSTILE IN TRIAGE; PATIENT REFUSING TO SIT DOWN, INSISTING THAT WE GET A CHAIR FOR HIS , INSISTING THAT HE BE ALLOWED MULTIPLE VISITORS, YELLING AND GESTURING IN TRIAGE. PATIENT ASKED TO HAVE A SEAT IN THE LOBBY AT THIS TIME
--- NOTE | 2020-02-12 15:30 | Diagnostic Imaging Report ---
EXAMINATION: ABDOMEN ACUTE SERIES W/PA CXR INDICATION: Constipation COMPARISON: Chest radiograph 05/26/2017 FINDINGS: LINES/TUBES:EKG leads overlie the chest. LUNGS:The lungs are well-inflated. No focal consolidation or pulmonary edema. PLEURA:No pleural effusion or pneumothorax. MEDIASTINUM:The cardiomediastinal silhouette appears normal in size and shape. BONES/SOFT TISSUES:No acute osseous injury. ABDOMEN:Nonobstructive bowel gas pattern. No free air. Normal stool burden throughout the colon. No acute osseous injury. Scattered degenerative changes of the visualized spine and of both hip joints. Phleboliths and/or high density bowel contents in the pelvis. IMPRESSION: No focal pneumonia or pulmonary edema. Nonobstructive bowel gas pattern. Normal stool burden throughout the colon. Signed by: Janie Richter MD on 02/12/2020 3:27 PM
--- OUTSIDE RECORDS SUMMARY | 2020-02-12 15:36 | XMS REPORT | Continuity of Care Document ---
Author Author [employer] Address Unknown Phone Unavailable Care Team Providers Care Fashion Designer Name Role Phone [employer] Unavailable Un available Problems Problem Status Onset Date Classification Date Reported Comments Source M62.81 MUSCLE WEAKNESS (GENERALIZED) 06/16/2017 Diagnosis 06/24/2017 [facility] I[facility].91 UNSPECIFIED ATRIAL FIBRILLATION 06/15/2017 Diagnosis 06/24/2017 [facility] I50.9 HEART FAILURE, UNSPECIFIED 06/15/2017 Diagnosis 06/24/2017 [facility] Retention of urine (disorder) 06/15/2017 Diagnosis 06/24/2017 [facility] I10 ESSENTIAL (PRIMARY) HYPERTENSION 06/15/2017 Diagnosis 06/24/2017 [facility] Z48.816 ENCOUNTER FOR SURGICAL AFTERCARE FOLLOWING SURGERY ON THE GENITOURINARY SYSTEM 06/15/2017 Diagnosis 06/24/2017 [facility] N40.1 BENIGN PROSTATIC HYPERPLASIA WITH LOWER URINARY TRACT SYMPTOMS 06/15/2017 Diagnosis 06/24/2017 [facility] R53.1 WEAKNESS 06/15/2017 Diagnosis 06/24/2017 [facility]9 CARDIOMYOPATHY, UNSPECIFIED 06/15/2017 Diagnosis 06/24/2017 [facility] Herpes Zoster (Shingles) Active 09/14/2013 [facility] Benign Prostatic Hypertrophy A ctive 09/14/2013 [facility] Hypertension Active 09/14/2013 [facility] Postherpetic Neuralgia Active 09/14/2013 [facility] Depression With Anxiety Active 09/14/2013 [facility] Medications Medication Details Route Status Patient Instructions Ordering Provider Order Date Source Metoprolol Tartrate Tablet 25 MG Give 0.5 tablet by mouth one time a day for htn hold for SBP Less than 110 and or HR Less than 60 Oral Active 06/16/2017 [facility]: [facility] Finasteride Tablet 5 MG Give 1 tablet by mouth one time a day for urinary spasm Oral Active 06/16/2017 [facility]: [facility] Losartan Potassium Tablet 100 MG Give 1 tablet by mouth one time a day for htn hold for SBP less than 110 Oral Active 06/16/2017 [facility]: [facility] Abilify Tablet 2 MG Give 1 tab let by mouth at bedtime for depression Oral Active 06/16/2017 [facility]: [facility] Flomax Capsule 0.4 MG Give 1 c apsule by mouth in the evening for urinary spasm Oral Active 06/15/2017 [facility]: [facility] Megace Oral Suspension 40 MG/ML Give 1 ml by mouth three times a day for appetite Oral Active 06/15/2017 [facility]: [facility] Bisacodyl Tablet Delayed Release 5 MG Give 1 tablet by mouth every 24 hours as needed for constipation Oral Active 06/15/2017 [facility]: [facility] Aspirin 81 MG Oral Tablet ; [...] Date: 09/06/2012; End Date: (Active) Active 09/06/2012 [facility] BuPROPion HCl ER (SR) 150 MG Oral Tablet Extended Release 12 Hour ; Start Date: ; End Date: 05/1899 (Active) Inactive [facility] Valsartan-Hydrochlorothiazide 160-12.5 MG Oral Tablet ; Start Date: ; End Date: (Active) Inactive [facility] BuPROPion HCl ER (SR) 150 MG Oral Tablet Extended Release 12 Hour ; Start Date: ; End Date: 05/1899 (Active) Inactive [facility] BuPROPion HCl ER (SR) 150 MG Oral Tablet Extended Release 12 Hour (Active) A ctive [facility] Valsartan-Hydrochlorothiazide 160-12.5 MG Oral Tablet (Active) Active [facility] Allergies, Adverse Reactions, Alerts Substance Category Reaction Severity Reaction type Status Date Reported Comments Source Tobramycin 06/15/2017 [facility]: [facility] Not Known [facility] Immunizations Immunization Date Given Site Status Last Updated Comments Source pneumococcal conjugate vaccine, 13 valent 06/15/2017 Not Given [facility]: [facility] influenza, high dose seasonal, preservative-free 02/11/2017 completed [facility]: [facility] Influenza 02/16/2013 completed [facility] Influenza 04/09/2010 completed [facility] Results No Data Provided for This [...] Hg) 132 06/23/2017 [facility]: [facility] Diastolic (mm Hg) 87 06/23/2017 [facility]: [facility] Heart Rate 60 {beats}/min 06/23/2017 [facility]: [facility] Systolic (mm Hg) 114 06/22/2017 [facility]: [facility] [place] Diastolic (mm Hg) 63 06/22/2017 [facility]: [facility] [place] Heart Rate 72 {beats}/min 06/22/2017 [facility]: [facility] [place] Systolic (mm Hg) 125 06/21/2017 [facility]: [facility] [place] Diastolic (mm Hg) 77 06/21/2017 [facility]: [facility] [place] Heart Rate 88 {beats}/min 06/21/2017 [facility]: [facility] [place] Systolic (mm Hg) 123 06/20/2017 [facility]: [facility] [place] Diastolic (mm Hg) 80 06/20/2017 [facility]: [facility] [place] Heart Rate 87 {beats}/min 06/20/2017 [facility]: [facility] [place] Systolic (mm Hg) 123 06/20/2017 [facility]: [facility] [place] Diastolic (mm Hg) 80 06/20/2017 [facility]: [facility] [place] Systolic (mm Hg) 140 06/19/2017 [facility]: [facility] [place] Diastolic (mm Hg) 86 06/19/2017 [facility]: [facility] [place] Heart Rate 88 {beats}/min 06/19/2017 [facility]: [facility] [place] Systolic (mm Hg) 140 06/19/2017 [facility]: [facility] [place] Diastolic (mm Hg) 86 06/19/2017 [facility]: [facility] [place] Systolic (mm Hg) 124 06/17/2017 [facility]: [facility] [place] Diastolic (mm Hg) 80 06/17/2017 [facility]: [facility] [place] Heart Rate 73 {beats}/min 06/17/2017 [facility]: [facility] [place] Weight 142.9 06/17/2017 [facility] [place] Height 69 0 06/17/2017 [facility] [place] Systolic (mm Hg) 148 06/15/2017 [facility]: [facility] [place] Diastolic (mm Hg) 90 06/15/2017 [facility]: [facility] [place] Temperature Oral (F) 98.2 F 06/15/2017 [facility]: [facility] [place] Heart Rate 56 {beats}/min 06/15/2017 [facility]: [facility] [place] Respitory Rate 18 06/15/2017 [facility]: [facility] [place] Height 69 0 06/10/2017 [facility]: [facility] [place] Weight 142.9 06/10/2017 [facility]: [facility] [place] Encounters Location Location Details Encounter Type Encounter Number Reason For Visit Attending Provider ADM Date DC Date Status Source AUDIT [id number] 09/06/2012 09/06/2012 [facility] AUDIT [id number] 02/17/2013 02/17/2013 [facility] AUDIT [id number] 03/28/2013 03/28/2013 [facility] AUDIT [id number] 04/18/2013 04/18/2013 [facility] AUDIT [id number] 05/24/2013 05/24/2013 [facility] Jovanny GALE gokul: MIAN MARTIN, Status: Pen, Time: 3:30 PM [id number] 06/27/2013 05/24/2013 [facility] AUDIT [id number] 06/28/2013 06/28/2013 [facility] AUDIT [id number] 07/04/2013 07/04/2013 [facility] AUDIT [id number] 07/05/2013 07/05/2013 [facility] AUDIT [id number] 08/02/2013 08/02/2013 [facility] AUDIT [id number] 09/14/2013 09/14/2013 [facility] Procedures No Data Provided for This Section Assessment and Plan No Data Provided for This Section Plan of Care Plan of Care Date Source Follow-up visit in 3 weeks 03/28/2013 Routine 03/28/2013 [facility] Social History Social History Date Source Smoking StatusStart DateEnd Date Unknown if ever smoked 06/24/2017 3:41:00 06/10/2017 [facility] [place] Marital History - Currently (Active) Tobacco Non-user (Active) Being A Social Drinker (Active) 09/14/2013 [facility] Family History Value Date S ource Maternal history of Hypertension (V17.49 ); (Active) 09/14/2013 [facility] Maternal history of Hypertension (V17.49 ); (Active) 08/02/2013 [facility] Maternal history of Hypertension (V17.49 ); (Active) 07/05/2013 [facility] Maternal history of Hypertension (V17.49 ); (Active) 07/04/2013 [facility] Maternal history of Hypertension (V17.49 ); (Active) 06/28/2013 [facility] Maternal history of Hypertension (V17.49 ); (Active) 05/24/2013 [facility] Maternal history of Hypertension (V17.49 ); (Active) 04/18/2013 [facility] Maternal history of Hypertension (V17.49 ); (Active) 03/28/2013 [facility] Advance Directives Order Name Results Value Date Source Advance Directives Advance Dir ectives Cardiopulmonary Resuscitation 06/23/2017 SNF: [facility] Advance Directives Advance Dir ectives No Advance Directives available. 09/14/2013 [facility] Advance Directives Advance Dir ectives No Advance Directives available. 08/02/2013 [facility] Advance Directives Advance Dir ectives No Advance Directives available. 07/05/2013 [facility] Advance Directives Advance Dir ectives No Advance Directives available. 07/04/2013 [facility] Advance Directives Advance Dir ectives No Advance Directives available. 06/28/2013 [facility] Advance Directives Advance Dir ectives No Advance Directives available. 05/24/2013 [facility] Advance Directives Advance Dir ectives No Advance Directives available. 04/18/2013 [facility] Advance Directives Advance Dir ectives No Advance Directives available. 03/28/2013 [facility] Advance Directives Advance Dir ectives No Advance Directives available. 02/17/2013 [facility] Advance Directives Advance Dir ectives No Advance Directives available. 09/06/2012 [facility] Functional Status No Data Provided for This Section
--- OUTSIDE RECORDS SUMMARY | 2020-02-12 15:37 | XMS REPORT | Continuity of Care Document ---
Author Author [facility] t Organization [facility] Address [address] [place] [address] Phone Unavailable Care Team Providers Care Owner Operator Name Role Phone MARIO SHAH MD S (NS) MIAN PCP [phone] RICARDO ELLIS Attphys Unavailable DANNY MCNEAL M.D. Attphys Unavaila ble [place], ECHO Attphys Unavailable JANELLE RAMIREZ M.D. Attphys UnavailKEKE Worthington Attphys Unavailable MIAN MARTIN M.D. Attphys Unavailable NIGEL WRAY P.A. Attphys Unavailable CHANTALE MCKINLEY Attphys Unavailable TITA SALCEDO Attphys Unavailable DALY FAJARDO M.D. Attphys Unavailable [place], HOLTER Attphys Unavailable HEMATPOUR KHASHAYAR Attphys Unavailable KAY NINA M.D. Attphys Unavailable [place], STRESS Attphys Unavailable TITA SALCEDO Admphys Unavailable Payers Payer Name Policy Type Policy Number Effective Date Expiration Date Mariah Smith [id number] 2017 00:00:00 [facility] Problems Condition Name Condition Details Condition Category Status Onset Date Resolution Date Last Treatment Date Treating Clinician Comments Source Ventricular bigeminy Bigeminy Problem Active [facility] Failure to thrive Failure to thrive Problem Active [facility] Retention of urine Urinary retention Problem Active [facility] Weakness Weakness Problem Active [facility] Dementia Problem Active [facility] Agitation Problem Active [facility] History of Dysthymic Disorder History of Dysthymic Disorder Problem Resolved [facility] Physicians History of ventricular tachycardia History of ventricular tachyc ardia Problem Resolved [facility] History of Atrial fibrillation History of Atrial fibrillation Probl em Resolved [facility]icians History of benign prostatic hypertrophy History of benign pr ostatic hypertrophy Problem Resolved [facility] History of Change in stool History of Change in stool Problem Resolved [facility] History of constipation History of constipation Problem Resolved [facility] History of Dysfunction of both eustachian tubes Histor y of Dysfunction of both eustachian tubes Problem Resolved [facility] History of Elevated prostate specific antigen (PSA) Hi story of Elevated prostate specific antigen (PSA) Problem Resolved [facility] History of Herpes zoster History of Herpes zoster Problem Resolved [facility] History of tinea cruris History of tinea cruris Problem Resolved [facility] History of persistent cough History of persistent cough Problem Resolved [facility] Physicia ns History of urinary tract infection History of urinary tract infe ction Problem Resolved [facility] Advance care planning Advance care planning Problem Active [facility] Anemia Anemia Problem Active [facility] At low risk for fall At low risk for fall Problem Active [facility] Colon cancer screening Colon cancer screening Problem Active [facility] Expressive aphasia Expressive aphasia Problem Active [facility] Hematuria, microscopic Hematuria, microscopic Problem Active [facility] Left inguinal hernia Left inguinal hernia Problem Active [facility] Lower urinary tract symptoms (LUTS) Lower urinary tract symptoms (LUTS) Problem Active [facility] Mixed hyperlipidemia Mixed hyperlipidemia Problem Active [facility] Palpitation Palpitation Problem Active [facility] Postherpetic neuralgia Postherpetic neuralgia Problem Active [facility] PVC (premature ventricular contraction) PVC (premature ventr icular contraction) Problem Active [facility] S/P TURP S/P TURP Problem Active [facility] Vitamin B12 deficiency Vitamin B12 deficiency Problem Active [facility] Hearing loss Hearing loss Problem Active [facility] Chronic depressive person Chronic depressive person Problem Active [facility] Medicare annual wellness visit, subsequent Medicare an nual wellness visit, subsequent Problem Active [facility] Nail hypertrophy Nail hypertrophy Problem Active [facility] Body mass index (BMI) 19.9 or less, adult Body mass in dex (BMI) 19.9 or less, adult Problem Active [facility] Hypersomnolence Hypersomnolence Problem Active [facility] Nausea Nausea Problem Active [facility] Fatigue, unspecified type Fatigue, unspecified type Problem Active [facility] Bed confinement status Bed confinement status Problem Active [facility] Benign non-nodular prostatic hyperplasia with lower ur inary tract symptoms Benign non-nodular prostatic hyperplasia with lower urinary tract symptoms Problem Active [facility] Cardiomyopathy Cardiomyopathy Problem Active [facility] 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 [facility] Hypoproteinemia Hypoproteinemia Problem Active [facility] History of bradycardia History of bradycardia Problem Resolved [facility] 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 Problem Active [facility] Sensorineural hearing loss (SNHL) of lef t ear with restricted hearing of right ear Sensorineural hearing loss (SNHL) of lef t ear with restricted hearing of right ear Problem Active [facility] Right chronic serous otitis media Right chronic serous otitis me paulette Problem Active [facility] Ventricular bigeminy Ventricular bigeminy Problem Active [facility] AAA (abdominal aortic aneurysm) AAA (abdominal aortic aneurysm) Pro blem Active [facility] Physicians Herpes Zoster (Shingles) Herp es Zoster (Shingles) Active 09/14/2013 [place] [facility] Problem Active 2013-09-14 14:02: 18 Aris Nielsen Benign Prostatic Hypertrophy B enign Prostatic Hypertrophy Active 09/14/2013 [facility] Problem Active 2013-09-14 14:02:18 Aris Nielsen Hypertension Hype rtension Active 09/14/2013 [facility] Problem Active 2013-09-14 14:02:18 Gregory Nielsen Postherpetic Neuralgia Post herpetic Neuralgia Active 09/14/2013 [facility] Problem Active 2013-09-14 14:02:18 Aris Nielsen Depression With Anxiety Depr ession With Anxiety Active 09/14/2013 [facility] Problem Active 2013-09-14 14:02: 18 Aris Nielsen M62.81 MUSCLE WEAKNESS (GENERALIZED) M62.81 MUSCLE WEAKNESS (GENERALIZED) 06/16/2017 Diagnosis 06/24/2017 SN[facility]: [facility] [place] [facility] Diagnosis 2017-06-16 00:00:00 2017-06-24 08:40:59 2017-06 08:40:59 [facility] I48.91 UNSPECIFIED ATRIAL FIBRILLATION I48.91 UNSPECIFIED ATRIAL FIBRILLATION 06/15/2017 Diagnosis 06/24/2017 [facility] [place] [facility] Diagnosis 2017-06-15 00:00:00 2017-06-24 08:40 :59 2017-06-24 08:40:59 [facility] I50.9 HEART FAILURE, UNSPECIFIED I50.9 HEART FAILURE, UNSPECIFIED 06/15/2017 Diagnosis 06/24/2017 [facility] [place] [facility] Diagnosis 2017-06-15 00:00:00 2017-06-24 08:40:59 2017-06-24 08:40:59 Aris Nielsen I10 ESSENTIAL (PRIMARY) HYPERTENSION I10 ESSENTIAL (PRIMARY) HYPERTENSION 06/15/2017 Diagnosis 06/24/2017 [facility] [place] [facility] Diagnosis 2017-06-15 00:00:00 2017-06-24 08:40:59 2017-06 08:40:59 [facility] [address] Z48.816 ENCOUNTER FOR SURGICAL AFTERCARE FOLLOWING SURGERY ON THE GENITOURINARY SYSTEM Z48.816 ENCOUNTE R FOR SURGICAL AFTERCARE FOLLOWING SURGERY ON THE GENITOURINARY SYSTEM 06/15/2017 Diagnosis 06/24/2017 [facility]: [facility] Diagnosis 2017-06-15 00:0 0:00 2017-06-24 08:40:59 2017-06-24 08:40:59 [facility] sebastian N40.1 BENIGN PROSTATIC HYPERPLASIA WITH LOWER URINARY TRACT SYMPTOMS N40.1 BENIGN PROSTATIC HYPERPLASIA WITH LOWER URINARY TRACT SYMPTOMS 06/15/2017 Diagnosis 06/24/2017 SN[facility]: [facility] [place] [facility] Diagnosis 2017-06-15 00:00:00 2017-06-24 08:40:59 2017-06-24 08:40:59 [facility] [address] R53.1 WEAKNESS R53. 1 WEAKNESS 06/15/2017 Diagnosis 06/24/2017 [facility]: [facility] [place] [facility] Diagnosis 6 00:00:00 2017-06-24 08:40:59 2017-06-24 08:40:59 [facility] [place] I42.9 CARDIOMYOPATHY, UNSPECIFIED I42.9 CARDIOMYOPATHY, UNSPECIFIED 06/15/2017 Diagnosis 06/24/2017 SN[facility]: [facility] Diagnosis 2017-06-15 00:00:00 2017-06-24 08:40:59 2017-06-24 08:40:59 [facility] [address] Allergies, Adverse Reactions, Alerts Allergy Name Allergy Type Status Severity Reaction(s) Onset Date Inacti ve Date Treating Clinician Comments Source Tobramycin Tobramycin Active 2017-06-15 00:00:00 [facility] [address] Tobramycin Allergy to substance Active 2009-04-06 00:00:00 [facility] tobramycin Allergy to drug (finding) Active [facility] Not Known Not Known Active Gregory Nielsen Family History Family Member Diagnosis Comments Start Date Stop Date Source Mother Family history of essential hypertension [facility] Unknown Family Member Family History 2013-03-28 21:47:13 2 21:47:13 [facility] Social History Social Habit Start Date Stop Date Quantity Comments Source Social History 2013-09-14 14:02:18 2013-09-14 14:02:18 Aris [facility] Sex Assigned At 1945 00:00:00 1945 00:00:00 Male [facility] Smoking Status Start Date Stop Date Source Never smoked tobacco (finding) U [facility] Medications Ordered Medication Name Filled Medication Name Start Date Stop Da te Current Medication? Ordering Clinician Indication Dosage Frequency Signature (SIG) Comments Components Source Nitrofurantoin Monohyd/M-Cryst (Macrobid 100 Mg Capsul e) 100 Mg CAPSULE Nitrofurantoin Monohyd/M-Cryst (Macrobid 100 Mg Capsule) 100 Mg CAPSULE 2020-02-09 20:55:00 Yes 100 Twice Daily With M eals [facility] Ziprasidone (Geodon) 20 Mg CAP Ziprasidone (Geodon) 20 Mg CA P 2020-02-09 20:54:00 Yes 20 Twice A Day for Agitation [facility] Vitamin B-12 1000 MCG Sublingual Tablet Sublingual Vit singer B-12 1000 MCG Sublingual Tablet Sublingual 2017-08-18 00:00:00 Yes NIGEL Donald Dissolve 1 tablet sublingually once daily [facility] Metoprolol Tartrate Tablet 25 MG 2017-06-16 13:00:00 Yes Give 0.5 tablet by mouth one time a day for htn hold for SBP Less than 110 and or HR Less than 60 Aris Nielsen Finasteride Tablet 5 MG 2017-06-16 13:00:00 Yes Give 1 tablet by mouth one time a day for urinary spasm M consuelo Nielsen Losartan Potassium Tablet 100 MG 2017-06-16 13:00:00 Yes Give 1 tablet by mouth one time a day for htn hold for SBP less than 110 Aris Nielsen Abilify Tablet 2 MG 2017-06-16 01:00:00 Yes Give 1 tablet by mouth at bedtime for depression Aris carreno Flomax Capsule 0.4 MG 2017-06-15 22:00:00 Yes Give 1 capsule by mouth in the evening for urinary spasm M consuelo Nielsen Megace Oral Suspension 40 MG/ML 2017-06-15 21:00:00 Yes Give 1 ml by mouth three times a day for appetite Kenton Nielsen Bisacodyl Tablet Delayed Release 5 MG 2017-06-15 19:00:00 Y es Give 1 tablet by mouth every 24 hours as needed for constipation Aris Nielsen Tamsulosin HCl - 0.4 MG Oral Capsule Tamsulosin HCl - 0.4 MG Oral Capsule 2015-09-11 00:00:00 Yes MIAN MARTIN M.D. 1 QD FAISAL E 1 CAPSULE DAILY [facility] BuPROPion HCl ER (SR) 150 MG Oral Tablet Extended Release 12 Hour 2013-08-02 15:21:57 Yes (Active) Emily Nielsen Valsartan-Hydrochlorothiazide 160-12.5 MG Oral Tablet 2013-07-05 23:17:02 Yes (Active) Aris carreno Aspirin 81 MG Oral Tablet 2013-05-23 06:00:00 [...] TAKE 1 TABLET BY MOUTH JOANNE VILA [facility] ValACYclovir HCl 1 GM Oral [...] (Active) Aris Nielsen Aripiprazole (Abilify) 5 Mg TABLET Aripiprazole (Abilify) 5 Mg TABLET Yes 2 Daily [facility] Aspirin Aspirin Yes [address] [facility] Finasteride Finasteride Yes [address] [facility] Polyethylene Glycol 3350 (Miralax) 17 Gm POWD.PACK Americo yethylene Glycol 3350 (Miralax) 17 Gm POWD.PACK Yes .[address] [facility] Tamsulosin Hcl (Flomax*) 0.4 Mg CAP Tamsulosin Hcl (Flomax*) 0.4 Mg C AP Yes .[address] [facility] Aspirin Low Dose 81 MG TABS Aspirin Low Dose 81 MG TABS Yes 1 QD TAKE 1 TABLET DAILY. [facility] Cranberry CAPS Cranberry CAPS Yes 4200 mg--2 caps per day [facility] Ondansetron HCl - 4 MG Oral Tablet Ondansetron HCl - 4 MG Oral Tablet Yes MIAN MARTIN M.D. 1 Q0.5D TAKE 1 TAB LET Twice daily PRN nausea or vomiting [facility] Escitalopram Oxalate 20 MG Oral Tablet Escitalopram Oxalate 20 M G Oral Tablet Yes 1 QD TAKE 1 TABLET DAILY [facility] Folic Acid 1 MG Oral Tablet Folic Acid 1 MG Oral Tablet Yes 1 QD TAKE 1 TABLET DAILY. [facility] Bupropion Hcl (Bupropion Xl) 150 Mg TAB.ER.24H Bupropi on Hcl (Bupropion Xl) 150 Mg TAB.ER.24H 2017-08-01 00:00:00 No 1 Daily [facility] Immunizations Ordered Immunization Name Filled Immunization Name Date Status Comments Source Fluzone High-Dose 0.5 ML Intramuscular Suspension Prefilled Syringe 2019-02-14 15:17:00 Completed [facility] Fluzone High-Dose 0.5 ML Intramuscular Suspension Prefilled Syringe 2018-02-17 16:17:00 Completed [facility] Fluzone High-Dose 0.5 ML Intramuscular Suspension Prefilled Syringe 2017-03-10 00:00:00 Completed [facility] Prevnar 13 Intramuscular Suspension 2016-11-11 12:33:00 Co mpleted [facility] Influenza 2010-04-09 00:00:00 Completed [facility] Influenza Unknown Completed [facility] Pneumovax 23 25 MCG/0.5ML Injection Injectable Unknown Completed [facility] Vital Signs Vital Name Observation Time Observation Value Comments Source Weight 2020-02-09 19:55:00 144 [lb_av] [facility] BMI (Body Mass Index) 2020-02-09 19:55:00 21.3 kg/m2 [facility] Systolic blood pressure 2019-12-19 12:44:00 111 mm[Hg] Loca tion: LUE; Position: Sitting [facility] Diastolic blood pressure 2019-12-19 12:44:00 74 mm[Hg] Loc ation: LUE; Position: Sitting [facility] Body height 2019-12-19 12:44:00 70 [in_us] [facility] Weight 2019-12-19 12:44:00 147.25 [lb_av] Univer [facility] Body mass index (BMI) [Ratio] 2019-12-19 12:44:00 21.13 kg/m2 [facility] Body temperature 2019-12-19 12:44:00 97.3 [degF] Method: [facility] Heart Rate 2019-12-19 12:44:00 91 /min Location: L Radial; Q uality: Normal [facility] Body temperature 2019-11-17 15:02:00 98.2 [degF] Method: Temporal [facility] Systolic blood pressure 2019-10-17 15:36:00 102 mm[Hg] Loca tion: LUE; Position: Sitting [facility] Diastolic blood pressure 2019-10-17 15:36:00 66 mm[Hg] Loc ation: LUE; Position: Sitting [facility] Body height 2019-10-17 15:36:00 70 [in_us] [facility] Weight 2019-10-17 15:36:00 138.125 [lb_av] Unive [facility] Body mass index (BMI) [Ratio] 2019-10-17 15:36:00 19.82 kg/m2 [facility] Body temperature 2019-10-17 15:36:00 98.4 [degF] Method: Temporal [facility] Heart Rate 2019-10-17 15:36:00 88 /min Location: L Brachial Artery; [facility] Respiratory rate 2019-10-17 15:36:00 16 /min Quality: [facility] BP Systolic 2019-06-08 09:43:00 116 mm[Hg] Location: LUE; Positi on: Sitting [facility] BP Diastolic 2019-06-08 09:43:00 78 mm[Hg] Location: LUE; Positi on: Sitting [facility] Height 2019-06-08 09:43:00 70 [in_us] [facility] Weight 2019-06-08 09:43:00 140.1875 [lb_av] [facility] Body Mass Index Calculated 2019-06-08 09:43:00 20.11 kg/m2 [facility] Temperature 2019-06-08 09:43:00 97.1 [degF] Method: Temporal [facility] Heart Rate 2019-06-08 09:43:00 83 /min Location: L Brachial Artery; [facility] Respiration Rate 2019-06-08 09:43:00 16 /min [facility] Temperature 2019-02-14 15:17:00 98.5 [degF] Method: Temporal [facility] BP Systolic 2018-12-21 14:13:00 97 mm[Hg] Location: GENNYE; Positi on: Sitting [facility] BP Diastolic 2018-12-21 14:13:00 63 mm[Hg] Location: GENNYE; Positi on: Sitting [facility] Height 2018-12-21 14:13:00 70 [in_us] [facility] Weight 2018-12-21 14:13:00 136 [lb_av] [facility] Body Mass Index Calculated 2018-12-21 14:13:00 19.51 kg/m2 [facility] Temperature 2018-12-21 14:13:00 98.4 [degF] Method: Temporal [facility] Respiration Rate 2018-12-21 14:13:00 14 /min [facility] Heart Rate 2018-12-21 14:13:00 45 /min [facility] BP Systolic 2018-08-17 15:15:00 110 mm[Hg] Location: GENNYE; Positi on: Sitting [facility] BP Diastolic 2018-08-17 15:15:00 60 mm[Hg] Location: LUE; Positi on: Sitting [facility] Height 2018-08-17 15:15:00 70 [in_us] [facility] Weight 2018-08-17 15:15:00 145 [lb_av] [facility] Body Mass Index Calculated 2018-08-17 15:15:00 20.81 kg/m2 [facility] Heart Rate 2018-08-17 15:15:00 56 /min Location: Apical; Jamari lity: Irregular [facility] BP Systolic 2018-06-20 14:21:00 112 mm[Hg] Location: LUE; Positi on: Sitting [facility] BP Diastolic 2018-06-20 14:21:00 66 mm[Hg] Location: LUE; Positi on: Sitting [facility] Heart Rate 2018-06-20 14:21:00 86 /min [facility] Height 2018-06-20 14:13:00 70 [in_us] [facility] Weight 2018-06-20 14:13:00 147 [lb_av] [facility] Body Mass Index Calculated 2018-06-20 14:13:00 21.09 kg/m2 [facility] Temperature 2018-06-20 14:13:00 98 [degF] Method: [facility]poral [facility] Respiration Rate 2018-06-20 14:13:00 17 /min Quality: Normal [facility] BP Systolic 2018-02-17 16:01:00 138 mm[Hg] Location: LUE; Positi on: Sitting [facility] BP Diastolic 2018-02-17 16:01:00 73 mm[Hg] Location: LUE; Positi on: Sitting [facility] Height 2018-02-17 16:01:00 70 [in_us] [facility] Weight 2018-02-17 16:01:00 139.5625 [lb_av] [facility] Body Mass Index Calculated 2018-02-17 16:01:00 20.03 kg/m2 [facility] Temperature 2018-02-17 16:01:00 97.5 [degF] Method: Temporal [facility] Respiration Rate 2018-02-17 16:01:00 16 /min [facility] Heart Rate 2018-02-17 16:01:00 93 /min [facility] BP Systolic 2017-12-27 14:24:00 96 mm[Hg] Location: LUE; Positi on: Sitting [facility] BP Diastolic 2017-12-27 14:24:00 67 mm[Hg] Location: LUE; Positi on: Sitting [facility] Height 2017-12-27 14:24:00 70 [in_us] [facility] Weight 2017-12-27 14:24:00 139.5 [lb_av] [facility] Body Mass Index Calculated 2017-12-27 14:24:00 20.02 kg/m2 [facility] Temperature 2017-12-27 14:24:00 97.9 [degF] Method: Temporal [facility] Heart Rate 2017-12-27 14:24:00 42 /min [facility] Respiration Rate 2017-12-27 14:24:00 16 /min [facility] BP Systolic 2017-08-17 15:06:00 125 mm[Hg] Location: GENNYE; Positi on: Sitting [facility] BP Diastolic 2017-08-17 15:06:00 78 mm[Hg] Location: LUE; Positi on: Sitting [facility] Height 2017-08-17 15:06:00 70 [in_us] [facility] Weight 2017-08-17 15:06:00 138.6 [lb_av] [facility] Body Mass Index Calculated 2017-08-17 15:06:00 19.89 kg/m2 [facility] Heart Rate 2017-08-17 15:06:00 93 /min [facility] BP Systolic 2017-08-06 11:56:00 116 mm[Hg] Location: LUE; Positi on: Sitting [facility] BP Diastolic 2017-08-06 11:56:00 57 mm[Hg] Location: LUE; Positi on: Sitting [facility] Height 2017-08-06 11:56:00 70 [in_us] [facility] Weight 2017-08-06 11:56:00 142.0625 [lb_av] [facility] Body Mass Index Calculated 2017-08-06 11:56:00 20.38 kg/m2 [facility] Temperature 2017-08-06 11:56:00 97.9 [degF] Method: Temporal [facility] Heart Rate 2017-08-06 11:56:00 72 /min Quality: Irregular [facility] Respiration Rate 2017-08-06 11:56:00 16 /min [facility] BP Systolic 2017-07-06 15:38:00 111 mm[Hg] Location: LEANN Simeon on: Sitting [facility] BP Diastolic 2017-07-06 15:38:00 66 mm[Hg] Location: LEANN Positi on: Sitting [facility] Height 2017-07-06 15:38:00 70 [in_us] [facility] Weight 2017-07-06 15:38:00 136.5625 [lb_av] [facility] Body Mass Index Calculated 2017-07-06 15:38:00 19.59 kg/m2 [facility] Temperature 2017-07-06 15:38:00 98.2 [degF] Method: Temporal [facility] Heart Rate 2017-07-06 15:38:00 49 /min Quality: Irregular Un [facility]ity [facility] Systolic (mm Hg) 2017-06-23 14:57:25 [facility] [place] Diastolic (mm Hg) 2017-06-23 14:57:25 [facility] [place] Heart Rate 2017-06-23 14:57:25 60 /min [facility] [place] Systolic (mm Hg) 2017-06-22 14:47:51 [facility] [place] Diastolic (mm Hg) 2017-06-22 14:47:51 [facility] [place] Heart Rate 2017-06-22 14:47:51 72 /min [facility] Systolic (mm Hg) 2017-06-21 14:56:41 [facility] [place] Diastolic (mm Hg) 2017-06-21 14:56:41 [facility] [place] Heart Rate 2017-06-21 14:56:41 88 /min [facility] [place] Systolic (mm Hg) 2017-06-20 16:40:49 [facility] [place] Diastolic (mm Hg) 2017-06-20 16:40:49 [facility] [place] Heart Rate 2017-06-20 16:40:49 87 /min [facility] [place] Systolic (mm Hg) 2017-06-20 16:40:35 [facility] [place] Diastolic (mm Hg) 2017-06-20 16:40:35 [facility] [place] Systolic (mm Hg) 2017-06-19 18:11:53 [facility] [place] Diastolic (mm Hg) 2017-06-19 18:11:53 [facility] [place] Heart Rate 2017-06-19 18:11:53 88 /min [facility] [place] Systolic (mm Hg) 2017-06-19 18:11:21 [facility] [place] Diastolic (mm Hg) 2017-06-19 18:11:21 [facility] [place] Systolic (mm Hg) 2017-06-17 16:49:20 [facility] [place] Diastolic (mm Hg) 2017-06-17 16:49:20 [facility] [place] Heart Rate 2017-06-17 16:49:20 73 /min [facility] [place] Weight 2017-06-17 13:32:00 [facility] [place] Height 2017-06-17 13:32:00 [facility] [place] Systolic (mm Hg) 2017-06-15 17:45:00 [facility] [place] Diastolic (mm Hg) 2017-06-15 17:45:00 [facility] [place] Temperature Oral (F) 2017-06-15 17:45:00 98.2 F [facility] [place] Heart Rate 2017-06-15 17:45:00 56 /min [facility] [place] Respitory Rate 2017-06-15 17:45:00 [facility] [place] Height 2017-06-10 00:00:00 [facility] [place] Weight 2017-06-10 00:00:00 [facility] BP Systolic 2017-05-19 12:07:00 78 mm[Hg] Location: LEANN Positi on: Sitting [facility] BP Diastolic 2017-05-19 12:07:00 48 mm[Hg] Location: LUE; Positi on: Sitting [facility] Height 2017-05-19 12:07:00 70 [in_us] [facility] Weight 2017-05-19 12:07:00 151.3125 [lb_av] [facility] Body Mass Index Calculated 2017-05-19 12:07:00 21.71 kg/m2 [facility] Temperature 2017-05-19 12:07:00 97.5 [degF] Method: Temporal [facility] Respiration Rate 2017-05-19 12:07:00 16 /min [facility] Heart Rate 2017-05-19 12:07:00 40 /min [facility] BP Systolic 2017-05-05 09:41:00 132 mm[Hg] Location: GENNYE; Positi on: Sitting [facility] BP Diastolic 2017-05-05 09:41:00 81 mm[Hg] Location: LUE; Positi on: Sitting [facility] Height 2017-05-05 09:41:00 70 [in_us] [facility]i [facility] Weight 2017-05-05 09:41:00 156.0625 [lb_av] [facility] Body Mass Index Calculated 2017-05-05 09:41:00 22.39 kg/m2 [facility] Temperature 2017-05-05 09:41:00 97.3 [degF] Method: Temporal [facility] Respiration Rate 2017-05-05 09:41:00 16 /min [facility] Heart Rate 2017-05-05 09:41:00 72 /min [facility]i ty [facility] BP Systolic 2017-04-21 09:00:00 156 mm[Hg] Location: GENNYE; Positi on: Sitting [facility] BP Diastolic 2017-04-21 09:00:00 94 mm[Hg] Location: GENNYE; Positi on: Sitting [facility] Height 2017-04-21 09:00:00 70 [in_us] [facility] Weight 2017-04-21 09:00:00 162.6 [lb_av] [facility] Body Mass Index Calculated 2017-04-21 09:00:00 23.33 kg/m2 [facility] Temperature 2017-04-21 09:00:00 98.4 [degF] Method: Oral [facility] Heart Rate 2017-04-21 09:00:00 77 /min Location: L Brachial Artery; [facility] Respiration Rate 2017-04-21 09:00:00 18 /min [facility] Heart Rate 2017-04-15 12:41:00 51 /min [facility] BP Systolic 2017-04-15 12:35:00 132 mm[Hg] Location: LUE; Positi on: Sitting [facility] BP Diastolic 2017-04-15 12:35:00 71 mm[Hg] Location: LUE; Positi on: Sitting [facility] Heart Rate 2017-04-15 12:35:00 42 /min [facility] Height 2017-04-15 12:35:00 70 [in_us] [facility] Body Mass Index Calculated 2017-04-15 12:35:00 23.53 kg/m2 [facility] Weight 2017-04-15 12:28:00 164 [lb_av] [facility] Body Mass Index Calculated 2017-04-15 12:28:00 23.53 kg/m2 [facility] BP Systolic 2017-04-05 10:12:00 142 mm[Hg] Location: DAVE; Positi on: Sitting [facility] BP Diastolic 2017-04-05 10:12:00 70 mm[Hg] Location: DAVE; Positi on: Sitting [facility] Height 2017-04-05 10:12:00 70 [in_us] [facility] Weight 2017-04-05 10:12:00 171.5 [lb_av] [facility] Body Mass Index Calculated 2017-04-05 10:12:00 24.61 kg/m2 [facility] Temperature 2017-04-05 10:12:00 97.7 [degF] Method: Temporal [facility] Heart Rate 2017-04-05 10:12:00 52 /min Quality: Irregular Un [facility] Respiration Rate 2017-04-05 10:12:00 16 /min [facility] Procedures Procedure Date / Time Performed Performing Clinician [facility] e [N] 2D Echo complete, with Doppler [id number] 2019-12-19 00:00:00 [facility] [QL] CULTURE, URINE, ROUTINE 2019 00:00:00 [facility] [QL] URINALYSIS, COMPLETE 2019 00:00:00 [facility] 2D Echo complete, with Doppler [id number] 2019-09-29 00:00:00 [facility] EKG (In Office) 2019-06-08 00:00:00 [facility] [[facility]] CBC (INCLUDES DIFF/PLT) 2019-06-08 00:00:00 [facility] [[facility]] BASIC METABOLIC PANEL W/EGFR 2019-06-08 00:00:00 [facility] [[facility]] TSH, 3RD GENERATION 2019-06-08 00:00[facility]00 [facility]] HEPATIC FUNCTION PANEL 2019-06-08 00:00:00 [facility] [[facility]] HEPATITIS C ANTIBODY 2019-06-08 00:00:00 [facility] [[facility]] URINALYSIS, COMPLETE W/REFLEX TO CULTURE 2019-06-06 00:00: 00 [facility] [[facility]] CMP W/EGFR 2018-09-02 00:00:00 [facility] [[facility]] CBC (INCLUDES DIFF/PLT) 2018-09-02 00:00:00 [facility] [[facility]] URINALYSIS, COMPLETE 2018-09-02 00:00:00 [facility] [[facility]] CULTURE, URINE, ROUTINE 2018-09-02 00:00:00 [facility] [N] 2D Echo complete, with Doppler [id number] 2018-08-17 00:00:00 [facility] [[facility]] URINALYSIS, COMPLETE 2017-11-26 00:00:00 [facility] [[facility]] CULTURE, URINE, ROUTINE 2017-11-26 00:00:00 [facility] [[facility]] CMP W/EGFR 2017-08-18 00:00:00 [facility] [[facility]] VITAMIN B12 2017-08-18 00:00:00 [facility] [[facility]] CBC (INCLUDES DIFF/PLT) 2017-08-06 00:00:00 [facility] [[facility]] FOLATE, SERUM 2017-08-06 00:00:00 [facility] [[facility]] IRON AND TOTAL IRON BINDING CAPACITY 2017-08-06 00:00:00 [facility] [QL] VITAMIN B12 2017-08-06 00:00:00 [facility] [[facility]] CMP W/EGFR 2017-08-06 00:00:00 [facility] [[facility]] LIPID PANEL 2017-08-06 00:00:00 [facility] [[facility]] URINALYSIS, COMPLETE 2017-08-06 00:00:00 [facility] [[facility]] CULTURE, URINE, ROUTINE 2017-08-06 00:00:00 [facility] Colonoscopy 2017-04-23 00:00:00 [facility] [place] [facility] Hemoccult ICT 2017-04-21 00:00:00 [place] [facility] [place] [facility] [O] Urine Dipstick (In Office) 2017-04-05 00:00:00 [facility] [QLH] CULTURE, URINE, ROUTINE 2017-04-05 00:00:00 [facility] [[facility]] CBC (INCLUDES DIFF/PLT) 2017-04-05 00:00:00 [facility] [QL] CMP W/EGFR 2017-04-05 00:00:00 [facility] XRAY Chest 2 views [id number] 2017-04-05 00:00:00 Uni versity [facility] History of Orchiectomy Left Univ ersity [facility] History of Umbilical Hernia Repair [facility] Plan of Care Planned Activity Planned Date Details Comments Source Diagnostic Test Pending 2019-12-19 00:00:00 [N] 2D Echo comp lete, with Doppler [id number] [code = [N] 2D Echo complete, with Doppler 39402] [facility] Diagnostic Test Pending 2019-09-29 00:00:00 [N] 2D Echo comp lete, with Doppler 63104 [code = [N] 2D Echo complete, with Doppler 73315] [facility] Diagnostic Test Pending 2019-08-09 00:00:00 [N] 2D Echo comp lete, with Doppler 01892 [code = [N] 2D Echo complete, with Doppler 43887] [facility] Diagnostic Test Pending 2017-10-18 00:00:00 [QLH] CMP W/EGFR [code = [QLH] CMP W/EGFR] [facility] Diagnostic Test Pending 2017-10-18 00:00:00 [QLH] VITAMIN B1 2 [code = [QL] VITAMIN B12] [facility] Diagnostic Test Pending 2017-08-13 00:00:00 [QLH] URINALYSIS , COMPLETE [code = [QLH] URINALYSIS, COMPLETE] [facility] Diagnostic Test Pending 2017-08-13 00:00:00 [QLH] CULTURE, U RINE, ROUTINE [code = [QL] CULTURE, URINE, ROUTINE] [facility] Diagnostic Test Pending 2017-08-13 00:00:00 [QLH] URINALYSIS , COMPLETE [code = [QLH] URINALYSIS, COMPLETE] [facility] Diagnostic Test Pending 2017-08-13 00:00:00 [QLH] CULTURE, U RINE, ROUTINE [code = [QLH] CULTURE, URINE, ROUTINE] [facility] Diagnostic Test Pending 2017-08-13 00:00:00 [QLH] URINALYSIS , COMPLETE [code = [QLH] URINALYSIS, COMPLETE] [facility] Diagnostic Test Pending 2017-08-13 00:00:00 [QLH] CULTURE, U RINE, ROUTINE [code = [QLH] CULTURE, URINE, ROUTINE] [facility] Diagnostic Test Pending 2017-04-27 00:00:00 Colonoscopy [code = 737 00068] [facility] Diagnostic Test Pending 2017-04-27 00:00:00 Colonoscopy [code = 737 49787] [facility] Future Scheduled Test 2013-03-28 21:47:13 Plan of Care [code = 1877 6-5] [facility] Appointment 2021-01-22 14:20:00 Gisselle DELGADO [facility] Instructions Confusion [facility] Instructions Urinary Tract Infection - Men [facility] Encounters Start Date/Time End Date/Time Encounter Type Admission Type Attendi [facility] Emergency Department Facility Care Department Encounter ID Source 2020-02-09 20:08:00 2020-02-09 21:15:00 Departed Emergency Room [facility] [id number] [facility] 2020-01-24 16:00:00 2020-01-24 16:00:00 Appointment; DANNY JOHNSON M.D. CHARITAKIS, KONSTANTINOS, M.D. [facility] [id number] [facility] 2020-01-24 15:00:00 2020-01-24 15:00:00 Appointment; Naomi PARNELL, S[facility] [id number] [facility] 2019-12-19 12:20:00 2019-12-19 12:20:00 Appointment; DANNY JOHNSON M.D. CHARITAKIS, KONSTANTINOS, M.D. [facility], [facility] [id number] [facility] 2019-11-17 15:00:00 2019-11-17 15:00:00 Appointment; JANELLE SR M.D. GOMEZ-RIVERA, FERNANDO, M.D. [facility] [place] rhinolaryngology [facility] [id number] [facility] 2019-10-27 15:30:00 2019-10-27 15:30:00 Appointment; CANDY MADISON KIMBERLY [facility] Otorhinolaryngology [facility] [id number] [facility] 2019-10-17 15:30:00 2019-10-17 15:30:00 Appointment; ALEC MARTIN M.D. BORTOLOTTI, JULIE, M.D. [facility] [id number] [facility] 2019-06-22 15:30:00 2019-06-22 15:30:00 Appointment; ALEC MARTIN M.D. BORTOLOTTI, JULIE, M.D. [facility] [id number] [facility] 2019-06-08 09:30:00 2019-06-08 09:30:00 Appointment; ALEC MARTIN M.D. BORTOLOTTI, JULIE, M.D. [facility] [id number] [facility] 2019-02-14 16:15:00 2019-02-14 16:15:00 Appointment; ALEC MARTIN M.D. BORTOLOTTI, JULIE, M.D. [facility] [id number] [facility] 2018-12-21 14:00:00 2018-12-21 14:00:00 Appointment; ALEC MARTIN M.D. BORTOLOTTI, JULIE, M.D. [facility], [address] [id number] [facility] 2018-08-17 15:00:00 2018-08-17 15:00:00 Appointment; DANNY JOHNSON M.D. CHARITAKIS, KONSTANTINOS, M.D. [facility] [address] [id number] [facility] 2018-06-20 14:00:00 2018-06-20 14:00:00 Appointment; ALEC MARTIN M.D. BORTOLOTTI, JULIE, M.D. [facility] [id number] [facility] 2018-06-20 14:00:00 2018-06-20 14:00:00 Appointment; ALEC MARTIN M.D. BORTOLOTTI, JULIE, M.D. [facility] [id number] [facility] 2018-02-17 15:45:00 2018-02-17 15:45:00 Appointment; JULIA WRAY P.A. SPOONER, JOSEPH, P.A. [facility] [id number] [facility] 2017-12-27 14:00:00 2017-12-27 14:00:00 Appointment; ALEC MARTIN M.D. BORTOLOTTI, JULIE, M.D. [facility] [address] [id number] [facility] 2017-11-23 15:30:00 2017-11-23 15:30:00 Appointment; ALEC MARTIN M.D. BORTOLOTTI, JULIE, M.D. [facility] [address] [id number] [facility] 2017-11-23 15:15:00 2017-11-23 15:15:00 Appointment; ALEC MARTIN M.D. BORTOLOTTI, JULIE, M.D. [facility] [id number] [facility] 2017-08-17 14:40:00 2017-08-17 14:40:00 Appointment; DANNY JOHNSON M.D. CHARITAKIS, KONSTANTINOS, M.D. [facility] [address] [id number] [facility] 2017-08-06 11:30:00 2017-08-06 11:30:00 Appointment; JULIA WRAY P.A. SPOONER, JOSEPH, P.A. [facility] [id number] [facility] 2017-07-30 18:38:00 2017-08-01 18:42:00 Discharged Inpatient ER CHANTALE MCKINLEY [facility] [id number] [facility] 2017-07-06 15:15:00 2017-07-06 15:15:00 Appointment; ALEC MARTIN M.D. BORTOLOTTI, JULIE, M.D. [facility] [address] [id number] [facility] 2017-06-15 00:00:00 2017-06-23 00:00:00 Outpatient MHIE MHIE [id number] 2017-05-27 12:21:00 2017-06-15 12:20:00 Discharged Inpatient ER TITA SALCEDO [facility] [id number] [facility] 2017-05-19 11:45:00 2017-05-19 11:45:00 Appointment; ALEC MARTIN M.D. BORTOLOTTI, JULIE, M.D. [facility] [address] [id number] [facility] 2017-05-18 15:30:00 2017-05-18 15:30:00 Appointment; DALY FAJARDO M.D. CATALANO, MARC, [facility]. [facility] [address] [id number] [facility] 2017-05-05 09:30:00 2017-05-05 09:30:00 Appointment; ALEC MARTIN M.D. BORTOLOTTI, JULIE, M.D. [facility] [address] [id number] [facility] 2017-04-21 09:00:00 2017-04-21 09:00:00 Appointment; DALY FAJARDO M.D. CATALANO, MARC, M.D. [facility] [address] [id number] [facility] 2017-04-15 12:00:00 2017-04-15 12:00:00 Appointment; JULIA WRAY P.A. SPOONER, JOSEPH, P.A. [facility] [id number] [facility] 2017-04-05 10:00:00 2017-04-05 10:00:00 Appointment; ALEC MARTIN M.D. BORTOLOTTI, JULIE, M.D. [facility] [address] [id number] [facility] 2016-12-16 15:00:00 2016-12-16 15:00:00 Appointment; DANNY JOHNSON M.D. CHARITAKIS, KONSTANTINOS, M.D. [facility] [id number] [facility] 2016-12-07 14:00:00 2016-12-07 14:00:00 Appointment; MARLEN-MS H EARL BAYSHORE-MS, HOLTER [facility] UTP [id number] [facility] 2016-12-07 13:00:00 2016-12-07 13:00:00 Appointment; YVETTESHORE-Naomi KENNEYSHORE-MS, ECHO [facility] UTP [id number] [facility] 2016-11-11 11:30:00 2016-11-11 11:30:00 Appointment; ALEC MARTIN M.D. BORTOLOTTI, JULIE, M.D. [facility] [id number] [facility] 2015-12-26 15:15:00 2015-12-26 15:15:00 Appointment; ALEC MARTIN M.D. BORTOLOTTI, JULIE, M.D. [facility] [id number] [facility] 2015-12-17 15:00:00 2015-12-17 15:00:00 Appointment; DANNY JOHNSON M.D. CHARITAKIS, KONSTANTINOS, M.D. [facility] [id number] [facility] 2015-12-09 15:00:00 2015-12-09 15:00:00 Appointment; BAYSHORE-MS, H OLTER B[place]-MS, HOLTER [facility] [id number] [facility] 2015-11-28 13:45:00 2015-11-28 13:45:00 Appointment; DALY FAJARDO M.D. CATALANO, MARC, M.D. [facility] [id number] [facility] 2015-11-22 13:00:00 2015-11-22 13:00:00 Appointment; DANNY JOHNSON M.D. CHARITAKIS, KONSTANTINOS, M.D. [facility] [id number] [facility] 2015-10-17 10:00:00 2015-10-17 10:00:00 Appointment; ALEC MARTIN M.D. BORTOLOTTI, JULIE, M.D. [facility] [id number] [facility] 2015-09-24 10:45:00 2015-09-24 10:45:00 Appointment; SYLWIA MICHEL KHASHAYAR [facility]TP [id number] [facility] 2015-09-11 15:00:00 2015-09-11 15:00:00 Appointment; DANNY JOHNSON M.D. CHARITAKIS, KONSTANTINOS, M.D. [facility] [id number] [facility] 2015-09-11 12:00:00 2015-09-11 12:00:00 Appointment; KAY NINA M.D. AYOUB, HAJAR, M.D. [facility] [id number] [facility] 2015-09-03 16:00:00 2015-09-03 16:00:00 Appointment; BAYSHORE-MS, H OLTER BAYSHORE-MS, HOLTER [facility] UTP [id number] [facility] 2015-09-03 16:00:00 2015-09-03 16:00:00 Appointment; BAYSHORE-MS, S TRESS BAYSHORE-MS, STRESS [facility] UTP [id number] [facility] 2015-09-03 15:00:00 2015-09-03 15:00:00 Appointment; BAYSHORE-MS, E CHO BAYSHORE-MS, ECHO [facility] UTP [id number] [facility] 2015-08-30 07:00:00 2015-08-30 07:00:00 Appointment; DALY FAJARDO M.D. CATALANO, MARC, M.D. [facility] [id number] [facility] 2015-08-29 14:00:00 2015-08-29 14:00:00 Appointment; ALEC MARTIN M.D. BORTOLOTTI, JULIE, M.D. [facility] [id number] [facility] 2015-08-27 14:00:00 2015-08-27 14:00:00 Appointment; DALY FAJARDO M.D. CATALANO, MARC, M.D. [facility]TP [id number] [facility] 2015-08-23 13:00:00 2015-08-23 13:00:00 Appointment; DANNY JOHNSON M.D. CHARITAKIS, KONSTANTINOS, M.D. [facility]TP [id number] [facility] 2015-08-12 11:45:00 2015-08-12 11:45:00 Appointment; ALEC MARTIN M.D. BORTOLOTTI, JULIE, M.D. [facility]TP [id number] [facility] 2013-09-14 09:02:18 2013-09-14 09:02:18 Outpatient MHIE MHIE [id number] 2013-08-02 10:21:57 2013-08-02 10:21:57 Outpatient MHIE MHIE [id number] 2013-07-05 17:17:02 2013-07-05 17:17:02 Outpatient MHIE MHIE [id number] 2013-07-04 08:48:03 2013-07-04 08:48:03 Outpatient MHIE MHIE [id number] 2013-06-28 10:03:43 2013-06-28 10:03:42 Outpatient MHIE MHIE [id number] 2013-05-24 09:03:48 2013-05-24 09:03:48 Outpatient MHIE MHIE [id number] 2013-04-18 16:32:23 2013-04-18 16:32:22 Outpatient MHIE MHIE [id number] 2013-03-28 15:47:13 2013-03-28 15:47:13 Outpatient MHIE MHIE [id number] 2013-02-17 11:48:14 2013-02-17 11:48:[address] [facility] [id number] 2012-09-06 12:16:49 2012-09-06 12:16:[address] [facility] [id number] Results Test Description Test Time Test Comments Results Result Comments Source ABDOMEN ACUTE SERIES W/PA CXR 2020-02-12 15:25:00 [place] [address] Patient Name: DENITA MASON MR #: [id number] : 1945 Age/Sex: 74/M Req #: [id number] Adm Physician: Ordered by: RICARDO ELLIS MD Report #: [id number] Location: ER Room/Bed: Procedure: [id number] DX/ABDOMEN ACUTE SERIES W/PA CXR Exam Date: 02/12/20 Exam Time: 1455 REPORT STATUS: Signed EXAMINATION: ABDOMEN ACUTE SERIES W/PA CXR INDICATION: Constipation COMPARISON: Chest radiograph 05/26/2017 FINDINGS: LINES/TUBES:EKG leads overlie the chest. LUNGS:The lungs are well-inflated. No focal consolidation or pulm onary edema. PLEURA:No pleural effusion or pneumothorax. MEDIASTINUM:The cardiomediastinal silhouette appears normal in size and shape. BONES/SOFT TISSUES:No acute osseous injury. ABDOMEN:Nonobstructive bowel gas pattern. No free air. Normal stool burden throughout the colon. No acute osseous injury. Scattered degenerative changes of the visualized spine and of both hip joints. Phleboliths and/or high density bowel contents in the pelvis. IMPRESSION: No focal pneumonia or pulmonary edema. Nonobstructive bowel gas pattern. Normal stool burden throughout the colon. Signed by: Davon Gallo MD on 02/12/2020 3:27 PM Dictated By: DAVON GALLO MD 26 Transcribed By: PACHECO on 02/12/201526 COPY TO: RICARDO ELLIS MD [] URINALYSIS, COMPLETE 2019 16:56:00 Test Item COLOR; Normal (test code = 5778-6) YELLOW YELLOW N APPEARANCE (test code = APPEARANCE) SLIGHTLY CLOUDY CLEAR A SPECIFIC GRAVITY; Normal (test code = 2965-2) 1.020 1.001-1. 035 N PH; Normal (test code = 2756-5) 6.0 5.0-8.0 N GLUCOSE; Normal (test code = 1547-9) NEGATIVE NEGATIVE N BILIRUBIN; Normal (test code = 95837-0) NEGATIVE NEGATIVE N KETONES; Normal (test code = 96819-0) NEGATIVE NEGATIVE N OCCULT BLOOD; Normal (test code = 94683-3) NEGATIVE NEGATIVE N PROTEIN; Normal (test code = 33811-4) NEGATIVE NEGATIVE N NITRITE; Normal (test code = 28315-7) NEGATIVE NEGATIVE N LEUKOCYTE ESTERASE (test code = LEUKOCYTE ESTERASE) NEGATIVE NE GATIVE N WBC; Normal (test code = 6690-2) 0-5 < OR = 5 N RBC; Normal (test code = 789-8) NONE SEEN < OR = 2 N SQUAMOUS EPITHELIAL CELLS (test code = 01672-5) 0-5 < OR = 5 BACTERIA; Abnormal (test code = 630-4) FEW NONE SEEN A CALCIUM OXALATE CRYSTALS; Normal (test code = 89761-9) FEW NONE OR FEW N HYALINE CAST; Normal (test code = 47760-8) NONE SEEN NONE SEEN N COMMENTS (test code = 71640-2) FEW MUCOUS THREADS [facility][] CULTURE, URINE, [id number] 16:56:00* Test Item Value Reference Range Interpretation Comments CULTURE (test code = CULTURE) See Comment CULTURE, URINE, ROUTINE Micro Number: [id number] Test Status: Final Specimen Source: URINE Specimen Quality: Adequate Result: No Growth [facility]] BASIC METABOLIC PANEL [id number] 10:56:00* Test Item Value Reference Range Interpretation Comments GLUCOSE; Normal (test code = 1547-9) 89 mg/dl 65-99 N Fasting reference interval UREA NITROGEN (BUN) (test code = UREA NITROGEN (BUN)) 22 mg/dl 7-25 N CREATININE (test code = CREATININE) 1.13 mg/dl 0.70-1.18 N For patients >49 years of age, the reference limitfor Creatinine is approximately 13% higher for peopleidentified as -Montenegrin. eGFR NON- (test code = eGFR NON-JO N GUAMANIAN) 64 {ML/MIN/1.7} > OR = 60 N [...] code = CALCIUM) 9.5 mg/dl 8.6-10.3 N [facility]] HEPATIC FUNCTION [id number] 10:56:00* Test Item Value Reference Range Interpretation Comments PROTEIN, TOTAL (test code = PROTEIN, TOTAL) 5.8 g/dl 6.1-8.1 ALBUMIN (test code = ALBUMIN) 3.8 g/dl 3.6-5.1 N GLOBULIN (test code = GLOBULIN) 2.0 {G/DL CALC} 1.9-3.7 N ALBUMIN/GLOBULIN RATIO (test code = ALBUMIN/GLOBULIN RATIO) 1.9 {CALC} 1.0-2.5 N BILIRUBIN, DIRECT; Normal (test code = 39408-7) 0.2 mg/dl < OR = 0.2 N BILIRUBIN, INDIRECT; Normal (test code = 1970-) 0.5 {MG/DL ULISSES} 0 .2-1.2 N ALKALINE PHSPHATASE (test code = ALKALINE PHSPHATASE) 98 u/l 40-115 N AST; Normal (test code = 1916-6) 24 u/l 10-35 N ALT; Normal (test code = 1742-6) 31 u/l 9-46 N [facility]] CBC (INCLUDES DIFF/PLT)2019-06-08 10:56:00* Test Item Value Reference Range Interpretation Comments WHITE BLOOD CELL COUNT (test code = WHITE BLOOD CELL COUNT) 5.7 {Thousand/u} 3.8-10.8 N RED BLOOD CELL COUNT (test code = RED BLOOD CELL COUNT) 4.88 {Million/uL} 4.20-5.80 N HEMAGLOBIN; Normal (test code = 57896-9) 15.6 g/dl 13.2-17.1 N HEMATOCRIT; Normal (test code = 4544-3) 46.1 % 38.5-50.0 N MCV; Normal (test code = 787-2) 94.5 fL 80.0-100.0 N MCHC; Normal (test code = 00242-6) 33.8 g/dl 32.0-36.0 N RDW; Normal (test code = 788-0) 12.5 % 11.0-15.0 N PLATELET COUNT; Below Low Threshold (test code = 777-3) 129 {Thousand/u} 140-400 MPV; Above High Threshold (test code = 55622-7) 12.8 fL 7.5-12 .5 ABSOLUTE NEUTROPHILS (test code = ABSOLUTE NEUTROPHILS) 2879 {cells/uL} 8034-8477 N ABSOLUTE LYMPHOCYTES (test code = ABSOLUTE [...] % N MONOCYTES; Normal (test code = 14318-6) 7.7 % N EOSINOPHILS; Normal (test code = 12908-1) 2.8 % N BASOPHILS; Normal (test code = 65193-5) 0.7 % N [facility]] HEPATITIS C [id number] 10:56:00* Test Item Value Reference Range Interpretation Comments HEPATITIS C ANTIBODY; Normal (test code = 64423-2) NON-REACTIVE NON -REACTIVE N SIGNAL TO CUT-OFF (test code = SIGNAL TO CUT-OFF) 0.01 <1.0 0 N HCV antibody was non-reactive. There is no laboratory evidence of HCV infection. In most cases, no further action is required. However,if recent HCV exposure is suspected, a test for HCV RNA(test code 21409) is suggested. For additional information please refer tohttp://education.[employer]/faq/IPI40b3(This link is being provided for informational/educational purposes only.) [facility]] TSH, 3RD [id number] 10:56:00* Test Item Value Reference Range Interpretation Comments TSH; Normal (test code = 59601-5) 3.62 {MIU/L} 0.40-4.50 N [facility]] URINALYSIS, COMPLETE W/REFLEX TO CULTURE [...] NEGATIVE N BILIRUBIN; Normal (test code = 68012-0) NEGATIVE NEGATIVE N KETONES; Normal (test code = 70023-5) NEGATIVE NEGATIVE N OCCULT BLOOD; Normal (test code = 17304-2) NEGATIVE NEGATIVE N PROTEIN; Abnormal (test code = 07417-4) TRACE NEGATIVE A NITRITE (test code = NITRITE) NEGATIVE NEGATIVE N LEUKOCYTE ESTERASE (test code = LEUKOCYTE ESTERASE) NEGATIVE NE GATIVE N WBC; Normal (test code = 6690-2) 0-5 < OR = 5 N RBC; Normal (test code = 789-8) 0-2 < OR = 2 N SQUAMOUS EPITHELIAL CELLS (test code = 64885-1) 0-5 < OR = 5 BACTERIA; Abnormal (test code = 630-4) FEW NONE SEEN A CALCIUM OXALATE CRYSTALS; Abnormal (test code = 68021-1) MODERATE NONE OR FEW A HYALINE CAST; Normal (test code = 75998-5) NONE SEEN NONE SEEN N [facility][] REFLEXIVE URINE [id number] 12:08:00* Test Item Value Reference Range Interpretation Comments REFLEXIVE URINE CULTURE (test code = REFLEXIVE URINE C ULTURE) NO CULTURE INDICATED [facility]] CMP [id number] 14:24:00* Test Item Value Reference Range Interpretation Comments GLUCOSE; Normal (test code = 1547-9) 100 mg/dl 65-139 N Non-fasting reference interval UREA NITROGEN (BUN) (test code = UREA NITROGEN (BUN)) 19 mg/dl 7-25 N CREATININE (test code = CREATININE) 1.15 mg/dl 0.70-1.18 N For patients >49 years of age, the reference limitfor Creatinine is approximately 13% higher for peopleidentified as -Montenegrin. eGFR NON- (test code = eGFR NON-JO N GUAMANIAN) 63 {ML/MIN/1.7} > OR = 60 N [...] N BILIRUBIN, TOTAL; Normal (test code = 44115-7) 0.6 mg/dl 0.2-1.2 N ALKALINE PHSPHATASE (test code = ALKALINE PHSPHATASE) 89 u/l 40-115 N AST; Normal (test code = 1916-6) 14 u/l 10-35 N ALT; Normal (test code = 1742-6) 10 u/l 9-46 N [facility]] URINALYSIS, [id number] 14:24:00* Test Item Value Reference Range Interpretation Comments COLOR; Normal (test code = 5778-6) YELLOW YELLOW N APPEARANCE (test code = APPEARANCE) CLEAR CLEAR N SPECIFIC GRAVITY; Normal (test code = 2965-2) 1.023 1.001-1. 035 N PH; Normal (test code = 2756-5) 6.5 5.0-8.0 N GLUCOSE; Normal (test code = 1547-9) NEGATIVE NEGATIVE N BILIRUBIN; Normal (test code = 94054-7) NEGATIVE NEGATIVE N KETONES; Normal (test code = 57973-3) NEGATIVE NEGATIVE N OCCULT BLOOD; Abnormal (test code = 50190-3) TRACE NEGATIVE A PROTEIN; Abnormal (test code = 33463-5) 1+ NEGATIVE A NITRITE; Normal (test code = 04351-7) NEGATIVE NEGATIVE N LEUKOCYTE ESTERASE (test code = LEUKOCYTE ESTERASE) TRACE NE GATIVE A WBC; Abnormal (test code = 6690-2) 6-10 < OR = 5 A RBC; Abnormal (test code = 789-8) 3-10 < OR = 2 A SQUAMOUS EPITHELIAL CELLS (test code = 30930-3) 0-5 < OR = 5 BACTERIA; Abnormal (test code = 630-4) FEW NONE SEEN A CALCIUM OXALATE CRYSTALS; Normal (test code = 51007-1) FEW NONE OR FEW N AMORPHOUS SEDIMENT; Normal (test code = 8246-1) FEW NONE O R FEW N HYALINE CAST; Abnormal (test code = 09473-9) 0-5 NONE SEEN A COMMENTS (test code = 32755-8) FEW MUCOUS THREADS [facility]] CBC (INCLUDES DIFF/PLT)2018-09-02 14:24:00* Test Item Value Reference Range Interpretation Comments WHITE BLOOD CELL COUNT (test code = WHITE BLOOD CELL COUNT) 5.7 {Thousand/u} 3.8-10.8 N RED BLOOD CELL COUNT (test code = RED BLOOD CELL COUNT) 4.51 {Million/uL} 4.20-5.80 N HEMAGLOBIN; Normal (test code = 43651-7) 14.8 g/dl 13.2-17.1 N HEMATOCRIT; Normal (test code = 4544-3) 43.0 % 38.5-50.0 N MCV; Normal (test code = 787-2) 95.3 fL 80.0-100.0 N MCHC; Normal (test code = 01078-0) 34.4 g/dl 32.0-36.0 N RDW; Normal (test code = 788-0) 12.6 % 11.0-15.0 N PLATELET COUNT; Below Low Threshold (test code = 777-3) 137 {Thousand/u} 140-400 MPV; Above High Threshold (test code = 94131-2) 13.0 fL 7.5-12 .5 ABSOLUTE NEUTROPHILS (test code = ABSOLUTE NEUTROPHILS) 3386 {cells/uL} 8194-9746 N ABSOLUTE LYMPHOCYTES (test code = ABSOLUTE [...] % N MONOCYTES; Normal (test code = 11691-4) 8.5 % N EOSINOPHILS; Normal (test code = 08075-6) 2.5 % N BASOPHILS; Normal (test code = 44913-4) 0.9 % N [facility]] CULTURE, URINE, [id number] 14:24:00* Test Item Value Reference Range Interpretation Comments CULTURE (test code = CULTURE) See Comment CULTURE, URINE, ROUTINE MICRO NUMBER: [id number] TEST STATUS: FINAL SPECIMEN SOURCE: URINE SPECIMEN QUALITY: ADEQUATE RESULT: No Growth [facility]icians[facility] Use [id number] 14:00:00* Test Item Value Reference Range Interpretation Comments Completed (test code = Completed) DONE [facility]] CBC (INCLUDES DIFF/PLT)2018-06-16 17:30:00* Test Item Value Reference Range Interpretation Comments WHITE BLOOD CELL COUNT (test code = WHITE BLOOD CELL COUNT) 5.6 {Thousand/u} 3.8-10.8 N RED BLOOD CELL COUNT (test code = RED BLOOD CELL COUNT) 4.58 {Million/uL} 4.20-5.80 N HEMAGLOBIN; Normal (test code = 69398-8) 15.0 g/dl 13.2-17.1 N HEMATOCRIT; Normal (test code = 4544-3) 43.6 % 38.5-50.0 N MCV; Normal (test code = 787-2) 95.2 fL 80.0-100.0 N MCHC; Normal (test code = 54174-0) 34.4 g/dl 32.0-36.0 N RDW; Normal (test code = 788-0) 12.7 % 11.0-15.0 N PLATELET COUNT; Below Low Threshold (test code = 777-3) 136 {Thousand/u} 140-400 MPV; Above High Threshold (test code = 34269-7) 13.3 fL 7.5-12 .5 ABSOLUTE NEUTROPHILS (test code = ABSOLUTE NEUTROPHILS) 3690 {cells/uL} 5796-1047 N ABSOLUTE LYMPHOCYTES (test code = ABSOLUTE [...] % N MONOCYTES; Normal (test code = 45509-4) 6.9 % N EOSINOPHILS; Normal (test code = 80081-3) 2.1 % N BASOPHILS; Normal (test code = 84199-2) 0.9 % N [facility]] BASIC METABOLIC PANEL [id number] 17:30:00* Test Item Value Reference Range Interpretation Comments GLUCOSE; Normal (test code = 1547-9) 94 mg/dl 65-99 N Fasting reference interval UREA NITROGEN (BUN) (test code = UREA NITROGEN (BUN)) 15 mg/dl 7-25 N CREATININE (test code = CREATININE) 1.00 mg/dl 0.70-1.18 N For patients >49 years of age, the reference limitfor Creatinine is approximately 13% higher for peopleidentified as -Montenegrin. eGFR NON- (test code = eGFR NON-JO N GUAMANIAN) 74 {ML/MIN/1.7} > OR = 60 N [...] code = CALCIUM) 9.0 mg/dl 8.6-10.3 N [facility]] PSA (FREE AND TOTAL)2018-06-16 17:30:00* [...] 21-25 16 >or =26 8>10(+) N/A >50 References:(1)Darlynona et al.:Urology 60: 469-474 (2002) (2)Stephanie et al.:J.Urol 168: 922-925 (2002) Free PSA(%) Sensitivity(%) Specificity(%) < or = 25 85 19 < or = 30 93 9 (3)Catalona et al.:TAMMI 277: 6587-7012 (1996) (4)Catalona et al.:TAMMI 279: 8717-1418 (1997) (x)These estimates vary with age, ethnicity, [...] evidence of the presence or absence ofdisease. [facility]] URINALYSIS, [id number] 17:04:00* Test Item Value Reference Range Interpretation Comments COLOR; Normal (test code = 5778-6) DARK YELLOW YELLOW N APPEARANCE (test code = APPEARANCE) CLOUDY CLEAR A SPECIFIC GRAVITY; Normal (test code = 2965-2) 1.024 1.001-1. 035 N PH; Normal (test code = 2756-5) 5.5 5.0-8.0 N GLUCOSE; Normal (test code = 1547-9) NEGATIVE NEGATIVE N BILIRUBIN; Normal (test code = 65412-4) NEGATIVE NEGATIVE N KETONES; Normal (test code = 55699-8) NEGATIVE NEGATIVE N OCCULT BLOOD; Abnormal (test code = 52344-0) 3+ NEGATIVE A PROTEIN; Abnormal (test code = 50914-1) 2+ NEGATIVE A NITRITE; Normal (test code = 08458-5) NEGATIVE NEGATIVE N LEUKOCYTE ESTERASE (test code = LEUKOCYTE ESTERASE) 1+ NE GATIVE A WBC; Abnormal (test code = 6690-2) 10-20 < OR = 5 A RBC; Abnormal (test code = 789-8) 40-60 < OR = 2 A SQUAMOUS EPITHELIAL CELLS (test code = 74463-9) 0-5 < OR = 5 BACTERIA; Abnormal (test code = 630-4) FEW NONE SEEN A CALCIUM OXALATE CRYSTALS; Normal (test code = 19247-0) FEW NONE OR FEW N HYALINE CAST; Normal (test code = 52417-3) NONE SEEN NONE SEEN N COMMENTS (test code = 23165-4) FEW MUCOUS THREADS [facility]] CULTURE, URINE, [id number] 17:04:00* Test Item Value Reference Range Interpretation Comments CULTURE (test code = CULTURE) See Comment CULTURE, URINE, ROUTINE MICRO NUMBER: [id number] TEST STATUS: FINAL SPECIMEN SOURCE: URINE, CLEAN CATCH SPECIMEN QUALITY: ADEQUATE RESULT: No Growth [facility]] LIPID [id number] 11:10:00* Test Item Value Reference Range Interpretation Comments CHOLESTEROL, TOTAL; Above High Threshold (test code = 2093-3) 222 m g/dl <200 HDL CHOLESTEROL; Normal (test code = 2085-9) 64 mg/dl >40 N TRIGLYCERIDES; Normal (test code = 2571-8) 96 mg/dl <150 N LDL-CHOLESTEROL; Above High Threshold (test code = 00638-6) 138 {MG/DL ULISSES} Reference range: <100 Desirable range <1 00 mg/dL for primary prevention; <70 mg/dL for patients with CHD or diabetic patients with > or = 2 CHD risk factors. LDL-C is now calculated using the Ángel-Sheri calculation, which is a validated novel method providing better accuracy than the Friedewald equation in the estimation of LDL-C. Ángel SS et al. TAMMI. 2013;310(19): 0670-8489 (http ://education.[employer]/faq/FFG083) CHOL/HDLC RATIO (test code = CHOL/HDLC RATIO) 3.5 {CALC} <5.0 N NON HDL CHOLESTEROL (test code = NON HDL CHOLESTEROL) 158 {MG/DL C AL} <130 For patients with diabetes plus 1 major ASCVD risk factor, treating to a non-HDL-C goal of <100 mg/dL (LDL-C of <70 mg/dL) is considered a therapeutic option. [facility]] IRON AND TOTAL IRON BINDING CAPACITY 2017-08-17 11:10:00* Test Item Value Reference Range Interpretation Comments IRON, TOTAL (test code = IRON, TOTAL) 90 {mcg/dl} 50-180 N IRON BINDING CAPACITY (test code = IRON BINDING CAPACITY) 22 8 {mcg/dL ca} 250-425 % SATURATION (test code = % SATURATION) 39 {% CALC} 15-60 N [facility]] CMP [id number] 11:10:00* Test Item Value Reference Range Interpretation Comments GLUCOSE; Normal (test code = 1547-9) 84 mg/dl 65-99 N Fasting reference interval UREA NITROGEN (BUN) (test code = UREA NITROGEN (BUN)) 18 mg/dl 7-25 N CREATININE (test code = CREATININE) 0.84 mg/dl 0.70-1.18 N For patients >49 years of age, the reference limitfor Creatinine is approximately 13% higher for peopleidentified as -Montenegrin. eGFR NON- (test code = eGFR NON-JO N GUAMANIAN) 87 {ML/MIN/1.7} > OR = 60 N [...] N BILIRUBIN, TOTAL; Normal (test code = 72092-7) 0.7 mg/dl 0.2-1.2 N ALKALINE PHSPHATASE (test code = ALKALINE PHSPHATASE) 62 u/l 40-115 N AST; Normal (test code = 1916-6) 10 u/l 10-35 N ALT; Below Low Threshold (test code = 1742-6) 6 u/l 9-46 [facility]] CBC (INCLUDES DIFF/PLT)2017-08-17 11:10:00* Test Item Value Reference Range Interpretation Comments WHITE BLOOD CELL COUNT (test code = WHITE BLOOD CELL COUNT) 4.8 {Thousand/u} 3.8-10.8 N RED BLOOD CELL COUNT (test code = RED BLOOD CELL COUNT) 4.47 {Million/uL} 4.20-5.80 N HEMOGLOBIN; Normal (test code = 90055-4) 14.6 g/dl 13.2-17.1 N HEMATOCRIT; Normal (test code = 4544-3) 42.6 % 38.5-50.0 N MCV; Normal (test code = 787-2) 95.3 fL 80.0-100.0 N MCHC; Normal (test code = 58758-4) 34.3 g/dl 32.0-36.0 N RDW; Normal (test code = 788-0) 13.3 % 11.0-15.0 N PLATELET COUNT; Normal (test code = 777-3) 158 {Thousand/u} 140-400 N MPV; Above High Threshold (test code = 64466-8) 12.6 fL 7.5-12 .5 ABSOLUTE NEUTROPHILS (test code = ABSOLUTE NEUTROPHILS) 2381 {cells/uL} 3514-8927 N ABSOLUTE LYMPHOCYTES (test code = ABSOLUTE [...] % N MONOCYTES; Normal (test code = 56279-8) 5.8 % N EOSINOPHILS; Normal (test code = 48965-4) 3.5 % N BASOPHILS; Normal (test code = 89546-2) 1.5 % N [facility]] FOLATE, [id number] 11:10:00* Test Item Value Reference Range Interpretation Comments FOLATE, SERUM (test code = FOLATE, SERUM) 6.3 ng/ml N Reference Range Low: <3.4 Borderline: 3.4-5.4 Normal: >5.4 [facility]] VITAMIN [id number] 11:10:00* Test Item Value Reference Range Interpretation Comments VITAMIN B12 (test code = VITAMIN B12) 249 pg/ml 200-1100 N Please Note: Although the reference range for xkehkjqA43 is 200-1100 pg/mL, it has been reported that between5 and 10% of patients with values between 200 and 400pg/mL may experience neuropsychiatric and hematologicabnormalities due to occult B12 deficiency; less than 1%of patients with values above 400 pg/mL will have symptoms. [facility]iciansBlood [id number] 16:40:00* Test Item Value Reference Range Interpretation Comments Blood Culture (test code = 34148162) NO GROWTH AFTER 48 HOURS [facility] Vancomycin [id number] 11:46:00* Test Item Value Reference Range Interpretation Comments Random Vancomycin Level (test code = 58048-8) 11.9 [facility] HospitalCreatine Kinase [id number] 19:14:00* Test Item Value Reference Range Interpretation Comments Creatine Kinase MB (test code = 89640-5) 1.50 0-5.0 [facility] HospitalTroponin [id number] 19:14:00* Test Item Value Reference Range Interpretation Comments Troponin I (test code = YPB2611) 0.011 0-0.300 [facility] HospitalCreatine Gwchaz5451-78-47 19:08:00* Test Item Value Reference Range Interpretation Comments Creatine Kinase (test code = 2157-6) 97 30-200 [facility] Cjakf7349-65-82 07:42:00* Test Item Value Reference Range Interpretation Comments Sodium Level (test code = 2951-2) 138 136-145 [facility] HospitalPotassium Pndyx3674-14-89 07:42:00* Test Item Value Reference Range Interpretation Comments Potassium Level (test code = 2823-3) 4.3 3.5-5.1 [facility] HospitalChloride Sgjvc6282-33-14 07:42:00* Test Item Value Reference Range Interpretation Comments Chloride Level (test code = 2075-0) 106 98-107 [facility] HospitalCarbon Dioxide [id number] 07:42:00* Test Item Value Reference Range Interpretation Comments Carbon Dioxide Level (test code = 2028-9) 26 22-29 [facility] HospitalAnion [id number] 07:42:00* Test Item Value Reference Range Interpretation Comments Anion Gap (test code = 20506-6) 10.3 8-16 [facility] HospitalBlood Urea Oqgnqgmv1142-06-37 07:42:00* Test Item Value Reference Range Interpretation Comments Blood Urea Nitrogen (test code = 3094-0) 11 7-26 [facility] HospitalCreatinine2018-03-24 07:42:00* Test Item Value Reference Range Interpretation Comments Creatinine (test code = 2160-0) 0.80 0.72-1.25 [facility] HospitalBUN/Creatinine Hmzlj1158-29-46 07:42:00* Test Item Value Reference Range Interpretation Comments BUN/Creatinine Ratio (test code = 3097-3) 14 11-01 [facility] HospitalEstimat Glomerular Filtration Rate 2017-07-31 07:42:00* Test Item Value Reference Range Interpretation Comments Estimat Glomerular Filtration Rate (test code = 68688-8) 60- >60 Ranges were taken from the National Kidney Disease Education Program and the [facility] Kidney Foundation literature.Reference ranges:60 or greater: Mojhme64-80 ( for 3 consecutive months): Chronic kidney disease 15 or less: Kidney failureRolling Plains Memorial HospitalGlucose Ejizz5622-29-08 07:42:00* Test Item Value Reference Range Interpretation Comments Glucose Level (test code = TJU6649) 74 74-118 [facility] HospitalCalcium Zsspo3294-60-44 07:42:00* Test Item Value Reference Range Interpretation Comments Calcium Level (test code = 25183-8) 8.7 8.4-10.2 [facility] HospitalPhosphorus Zgjgu6753-46-65 07:42:00* Test Item Value Reference Range Interpretation Comments Phosphorus Level (test code = SFK0910) 3.2 2.3-4.7 [facility] HospitalMagnesium Oysah5316-08-89 07:42:00* Test Item Value Reference Range Interpretation Comments Magnesium Level (test code = 07703-6) 1.7 1.3-2.1 [facility] HospitalTotal Rcdmnjaev1632-26-70 07:42:00* Test Item Value Reference Range Interpretation Comments Total Bilirubin (test code = 1975-2) 0.7 0.2-1.2 [facility] HospitalAspartate Amino Transf (AST/SGOT) 2017-07-31 07:42:00* Test Item Value Reference Range Interpretation Comments Aspartate Amino Transf (AST/SGOT) (test code = Aspartate Amino Transf (AST/SGOT)) 11 5-34 [facility] HospitalAlanine Aminotransferase (ALT/SGPT) 2017-07-31 07:42:00* Test Item Value Reference Range Interpretation Comments Alanine Aminotransferase (ALT/SGPT) (test code = 1742-6) 6 0-55 [facility] HospitalTotal Lyqjdav4707-31-68 07:42:00* Test Item Value Reference Range Interpretation Comments Total Protein (test code = 2885-2) 4.8 6.5-8.1 L [facility] HospitalAlbumin2018-03-24 07:42:00* Test Item Value Reference Range Interpretation Comments Albumin (test code = 1751-7) 3.2 3.5-5.0 L [facility] HospitalGlobulin2018-03-24 07:42:00* Test Item Value Reference Range Interpretation Comments Globulin (test code = 17499-5) 1.6 2.3-3.5 L [facility] HospitalAlbumin/Globulin Paryr4380-13-71 07:42:00 * Test Item Value Reference Range Interpretation Comments Albumin/Globulin Ratio (test code = 1759-0) 2.0 0.8-2.0 [facility] HospitalAlkaline Tkfwryiifrb0172-06-85 07:42:00* Test Item Value Reference Range Interpretation Comments Alkaline Phosphatase (test code = 6768-6) 55 40-150 [facility] HospitalWhite Blood Bzcex0806-89-97 07:00:00* Test Item Value Reference Range Interpretation Comments White Blood Count (test code = 6690-2) 4.14 4.8-10.8 L [facility] HospitalRed Blood Kcddq1359-20-04 07:00:00* Test Item Value Reference Range Interpretation Comments Red Blood Count (test code = 789-8) 3.77 4.3-5.7 L [facility] HospitalHemoglobin2018-03-24 07:00:00* Test Item Value Reference Range Interpretation Comments Hemoglobin (test code = 97607-6) 12.5 14.0-18.0 L [facility] HospitalHematocrit2018-03-24 07:00:00* Test Item Value Reference Range Interpretation Comments Hematocrit (test code = 4544-3) 37.1 38.2-49.6 L [facility] HospitalMean Corpuscular Zkdfqs7537-78-46 07:00:00* Test Item Value Reference Range Interpretation Comments Mean Corpuscular Volume (test code = 787-2) 98.4 81-99 [facility] HospitalMean Corpuscular Vbseoczxza0674-21-60 07:00:00* Test Item Value Reference Range Interpretation Comments Mean Corpuscular Hemoglobin (test code = 785-6) 33.2 28-32 H [facility] HospitalMean Corpuscular Hemoglobin Concent 2017-07-31 07:00:00* Test Item Value Reference Range Interpretation Comments Mean Corpuscular Hemoglobin Concent (test code = 786-4) 33.7 31-35 [facility] HospitalRed Cell Distribution Mvpch7693-01-77 07:00:00* Test Item Value Reference Range Interpretation Comments Red Cell Distribution Width (test code = 18382-5) 13.7 11.7 -14.4 [facility] HospitalPlatelet Fqhum8615-90-32 07:00:00* Test Item Value Reference Range Interpretation Comments Platelet Count (test code = 777-3) 138 140-360 L [facility] HospitalNeutrophils (%) (Auto)2017-07-31 07:00:00 * Test Item Value Reference Range Interpretation Comments Neutrophils (%) (Auto) (test code = 48764-6) 46.2 38.7-80.0 [facility] HospitalLymphocytes (%) (Auto)2017-07-31 07:00:00 * Test Item Value Reference Range Interpretation Comments Lymphocytes (%) (Auto) (test code = 736-9) 38.6 18.0-39.1 [facility] HospitalMonocytes (%) (Auto)2017-07-31 07:00:00* Test Item Value Reference Range Interpretation Comments Monocytes (%) (Auto) (test code = 5905-5) 9.9 4.4-11.3 [facility] HospitalEosinophils (%) (Auto)2017-07-31 07:00:00 * Test Item Value Reference Range Interpretation Comments Eosinophils (%) (Auto) (test code = 713-8) 4.1 0.0-6.0 [facility] HospitalBasophils (%) (Auto)2017-07-31 07:00:00* Test Item Value Reference Range Interpretation Comments Basophils (%) (Auto) (test code = 706-2) 1.0 0.0-1.0 [facility] %2017-07-31 07:00:00* Test Item Value Reference Range Interpretation Comments IM GRANULOCYTES % (test code = IM GRANULOCYTES %) 0.2 0.0- 1.0 [facility] # (Auto)2017-07-31 07:00:00* Test Item Value Reference Range Interpretation Comments Neutrophils # (Auto) (test code = 751-8) 1.9 2.1-6.9 L [facility]Lymph[facility] # (Auto)2017-07-31 07:00:00* Test Item Value Reference Range Interpretation Comments Lymphocytes # (Auto) (test code = 53658-7) 1.6 1.0-3.2 [facility]Mon[facility] # (Auto)2017-07-31 07:00:00* Test Item Value Reference Range Interpretation Comments Monocytes # (Auto) (test code = 742-7) 0.4 0.2-0.8 [facility]Eosinophils # (Auto)2017-07-31 07:00:00* Test Item Value Reference Range Interpretation Comments Eosinophils # (Auto) (test code = 711-2) 0.2 0.0-0.4 [facility]Basophils # (Auto)2017-07-31 07:00:00* Test Item Value Reference Range Interpretation Comments Basophils # (Auto) (test code = 704-7) 0.0 0.0-0.1 [facility] HospitalAbsolute Immature Granulocyte (auto 2017-07-31 07:00:00* Test Item Value Reference Range Interpretation Comments Absolute Immature Granulocyte (auto (sona t code = Absolute Immature Granulocyte (auto) 0.01 0-0.1 [facility] HospitalUrine [id number] 20:18:00* Test Item Value Reference Range Interpretation Comments Urine WBC (test code = 5821-4) 11-20 0-5 H [facility] HospitalUrine RRO5137-20-35 20:18:00* Test Item Value Reference Range Interpretation Comments Urine RBC (test code = 24774-0) 21-50 0-5 H [facility] Dshusqoe2314-81-34 20:18:00* Test Item Value Reference Range Interpretation Comments Urine Bacteria (test code = 04016-9) MODERATE NONE H [facility] HospitalU[facility] Epithelial Okzeg1197-14-21 20:18:00 * Test Item Value Reference Range Interpretation Comments Urine Epithelial Cells (test code = 95767-2) NONE NONE [facility] Hyaline Rzaff5783-81-76 20:18:00* Test Item Value Reference Range Interpretation Comments Urine Hyaline Casts (test code = 85565-1) 0-1 0-1 [facility] Wxukj4775-54-90 20:18:00* Test Item Value Reference Range Interpretation Comments Urine Mucus (test code = 8247-9) FEW RARE H [facility] HospitalU[facility] Geiva3731-71-38 20:11:00* Test Item Value Reference Range Interpretation Comments Urine Color (test code = 5778-6) YELLOW YELLOW [facility] Yuculvv9449-77-71 20:11:00* Test Item Value Reference Range Interpretation Comments Urine Clarity (test code = 14254-2) SL CLOUDY CLEAR H [facility] HospitalUrine Specific Kqvhfzo0068-07-89 20:11:00 * Test Item Value Reference Range Interpretation Comments Urine Specific [place] (test code = 5811-5) 1.020 1.010-1.02 5 [facility] HospitalU[facility] [id number] 20:11:00* Test Item Value Reference Range Interpretation Comments Urine pH (test code = 80821-7) 5 5-7 [facility] Leukocyte Rrivatgh8840-07-57 20:11:00* Test Item Value Reference Range Interpretation Comments Urine Leukocyte Esterase (test code = 5799-2) 1+ NEGATIVE H [facility] Uryrmfg9167-01-67 20:11:00* Test Item Value Reference Range Interpretation Comments Urine Nitrite (test code = 53141-1) NEGATIVE NEGATIVE [facility] Wwxcccf3433-96-09 20:11:00* Test Item Value Reference Range Interpretation Comments Urine Protein (test code = 5804-0) 1+ NEGATIVE H [facility] HospitalUrine Glucose (UA)2017-07-30 20:11:00* Test Item Value Reference Range Interpretation Comments Urine Glucose (UA) (test code = 2349-9) NEGATIVE NEGATIVE [facility] Gsnqnen1080-22-73 20:11:00* Test Item Value Reference Range Interpretation Comments Urine Ketones (test code = 40133-3) TRACE NEGATIVE H [facility] Vqhqybdfjzer3436-07-05 20:11:00* Test Item Value Reference Range Interpretation Comments Urine Urobilinogen (test code = 70639-9) 0.2 0.2-1 [facility] Vpvwfjlme6009-43-83 20:11:00* Test Item Value Reference Range Interpretation Comments Urine Bilirubin (test code = 1978-6) NEGATIVE NEGATIVE [facility] Szxdd1240-00-56 20:11:00* Test Item Value Reference Range Interpretation Comments Urine Blood (test code = 78968-1) 4+ NEGATIVE H [facility] HospitalProthrombin Zrrd4191-01-15 18:13:00* Test Item Value Reference Range Interpretation Comments Prothrombin Time (test code = 5902-2) 13.4 11.9-14.5 [facility] HospitalProthromb Time International Ratio 2017-07-30 18:13:00* Test Item Value Reference Range Interpretation Comments Prothromb Time International Ratio (test code = 6301-6) 1.10 Oral Anticoagulant Therapy INR Values:1. Low Intensity Therapy 1.5 - 2.02 . Moderate Intensity Therapy 2.0 - 3.03. High Intensity Therapy(1) 2.5 - 3. 54. High Intensity Therapy(2) 3.0 - 4.05. Panic Value INR > 5.0 [facility] HospitalActivated Partial Thromboplast Time 2017-07-30 18:13:00* Test Item Value Reference Range Interpretation Comments Activated Partial Thromboplast Time (test code = 94921-3) 23.8 23.8-35.5 [facility] HospitalLactic Acid Nfchl4027-36-24 16:56:00* Test Item Value Reference Range Interpretation Comments Lactic Acid Level (test code = Lactic Acid Level) 21.3 4.5- 19.8 [facility] Mxmlj5205-83-89 14:44:00* Test Item Value Reference Range Interpretation Comments Sodium Level (test code = 2951-2) 145 136-145 [facility] HospitalPotassium Otscs3755-70-79 14:44:00* Test Item Value Reference Range Interpretation Comments Potassium Level (test code = 2823-3) 4.1 3.5-5.1 [facility] HospitalChloride Ycvrw7837-15-22 14:44:00* Test Item Value Reference Range Interpretation Comments Chloride Level (test code = 2075-0) 112 98-107 H [facility] HospitalCarbon Dioxide Ribvz2151-33-06 14:44:00* Test Item Value Reference Range Interpretation Comments Carbon Dioxide Level (test code = 2028-9) 29 22-29 [facility] HospitalAnion Zep2908-02-83 14:44:00* Test Item Value Reference Range Interpretation Comments Anion Gap (test code = 67715-0) 8.1 8-16 [facility] HospitalBlood Urea Dqbzxvmr9794-97-11 14:44:00* Test Item Value Reference Range Interpretation Comments Blood Urea Nitrogen (test code = 3094-0) 6 7-26 L [facility] HospitalCreatinine2018-02-04 14:44:00* Test Item Value Reference Range Interpretation Comments Creatinine (test code = 2160-0) 0.80 0.72-1.25 [facility] HospitalBUN/Creatinine Wsdpv3535-75-69 14:44:00* Test Item Value Reference Range Interpretation Comments BUN/Creatinine Ratio (test code = 3097-3) 8 6-25 [facility] HospitalEstimat Glomerular Filtration Rate 2017-06-13 14:44:00* Test Item Value Reference Range Interpretation Comments Estimat Glomerular Filtration Rate (test code = 10690-7) 60- >60 Ranges were taken from the National Kidney Disease Education Program and the [facility] Kidney Foundation literature.Reference ranges:60 or greater: Iipxox41-89 ( for 3 consecutive months): Chronic kidney disease 15 or less: Kidney failureRolling Plains Memorial HospitalGlucose Pxiur3672-51-32 14:44:00* Test Item Value Reference Range Interpretation Comments Glucose Level (test code = ZJQ6175) 125 74-118 H [facility] HospitalCalcium Ynvhm2151-39-62 14:44:00* Test Item Value Reference Range Interpretation Comments Calcium Level (test code = 31327-9) 8.4 8.4-10.2 [facility] HospitalWhite Blood Eaydo3731-18-54 14:33:00* Test Item Value Reference Range Interpretation Comments White Blood Count (test code = 6690-2) 4.27 4.8-10.8 L [facility] HospitalRed Blood Joafa3838-90-82 14:33:00* Test Item Value Reference Range Interpretation Comments Red Blood Count (test code = 789-8) 4.21 4.3-5.7 L [facility] HospitalHemoglobin2018-02-04 14:33:00* Test Item Value Reference Range Interpretation Comments Hemoglobin (test code = 02353-0) 13.3 14.0-18.0 L [facility] HospitalHematocrit2018-02-04 14:33:00* Test Item Value Reference Range Interpretation Comments Hematocrit (test code = 4544-3) 41.1 38.2-49.6 [facility] HospitalMean Corpuscular Qmpazh3235-67-02 14:33:00* Test Item Value Reference Range Interpretation Comments Mean Corpuscular Volume (test code = 787-2) 97.6 81-99 [facility] HospitalMean Corpuscular Stfbaacuhh8521-95-63 14:33:00* Test Item Value Reference Range Interpretation Comments Mean Corpuscular Hemoglobin (test code = 785-6) 31.6 28-32 [facility] HospitalMean Corpuscular Hemoglobin Concent 2017-06-13 14:33:00* Test Item Value Reference Range Interpretation Comments Mean Corpuscular Hemoglobin Concent (test code = 786-4) 32.4 31-35 [facility] HospitalRed Cell Distribution Kbyzo8040-74-61 14:33:00* Test Item Value Reference Range Interpretation Comments Red Cell Distribution Width (test code = 09510-7) 13.2 11.7 -14.4 [facility] HospitalPlatelet Bdkaq5204-12-47 14:33:00* Test Item Value Reference Range Interpretation Comments Platelet Count (test code = 777-3) 153 140-360 [facility] HospitalNeutrophils (%) (Auto)2017-06-13 14:33:00 * Test Item Value Reference Range Interpretation Comments Neutrophils (%) (Auto) (test code = 70589-6) 62.5 38.7-80.0 [facility] HospitalLymphocytes (%) (Auto)2017-06-13 14:33:00 * Test Item Value Reference Range Interpretation Comments Lymphocytes (%) (Auto) (test code = 736-9) 24.4 18.0-39.1 [facility] HospitalMonocytes (%) (Auto)2017-06-13 14:33:00* Test Item Value Reference Range Interpretation Comments Monocytes (%) (Auto) (test code = 5905-5) 8.2 4.4-11.3 [facility] HospitalEosinophils (%) (Auto)2017-06-13 14:33:00 * Test Item Value Reference Range Interpretation Comments Eosinophils (%) (Auto) (test code = 713-8) 3.5 0.0-6.0 [facility] HospitalBasophils (%) (Auto)2017-06-13 14:33:00* Test Item Value Reference Range Interpretation Comments Basophils (%) (Auto) (test code = 706-2) 1.2 0.0-1.0 H [facility] HospitalIM GRANULOCYTES %2017-06-13 14:33:00* Test Item Value Reference Range Interpretation Comments IM GRANULOCYTES % (test code = IM GRANULOCYTES %) 0.2 0.0- 1.0 [facility] HospitalNeutrophils # (Auto)2017-06-13 14:33:00* Test Item Value Reference Range Interpretation Comments Neutrophils # (Auto) (test code = 751-8) 2.7 2.1-6.9 [facility] HospitalLymphocytes # (Auto)2017-06-13 14:33:00* Test Item Value Reference Range Interpretation Comments Lymphocytes # (Auto) (test code = 91548-5) 1.0 1.0-3.2 [facility] HospitalMonocytes # (Auto)2017-06-13 14:33:00* Test Item Value Reference Range Interpretation Comments Monocytes # (Auto) (test code = 742-7) 0.4 0.2-0.8 [facility] HospitalEosinophils # (Auto)2017-06-13 14:33:00* Test Item Value Reference Range Interpretation Comments Eosinophils # (Auto) (test code = 711-2) 0.2 0.0-0.4 [facility] HospitalBasophils # (Auto)2017-06-13 14:33:00* Test Item Value Reference Range Interpretation Comments Basophils # (Auto) (test code = 704-7) 0.1 0.0-0.1 [facility] HospitalAbsolute Immature Granulocyte (auto 2017-06-13 14:33:00* Test Item Value Reference Range Interpretation Comments Absolute Immature Granulocyte (auto (sona t code = Absolute Immature Granulocyte (auto) 0.01 0-0.1 [facility] HospitalVancomycin Level Ucifpo8173-90-66 12:05:00* Test Item Value Reference Range Interpretation Comments Vancomycin Level Trough (test code = 4092-3) 13.7 5.0-10.0 HH Results called to RAJI MAX RN at 1204 on 06/12/17 by Erica Joseph. RB OK.[facility] HospitalVancomycin Level Ijudkp8923-37-82 12:05:00* Test Item Value Reference Range Interpretation Comments Vancomycin Level Trough (test code = 4092-3) 13.7 5.0-10.0 HH Results called to RAJI MAX RN at 1204 on 06/12/17 by Erica Joseph. RB OK.[facility] HospitalMagnesium Zxzjd6821-91-98 16:52:00* Test Item Value Reference Range Interpretation Comments Magnesium Level (test code = 66285-3) 1.9 1.3-2.1 [facility] HospitalUrine Leymgyp9133-11-40 05:29:00* Test Item Value Reference Range Interpretation Comments Urine Culture (test code = 630-4) Organism: STAPHYLOCOCCUS EPIDERMI DIS [facility] HospitalUrine Eafisdn8266-55-21 05:29:00* Test Item Value Reference Range Interpretation Comments Urine Culture (test code = 630-4) Organism: STAPHYLOCOCCUS EPIDERMI DIS [facility] HospitalB-Type Natriuretic Jetjqsu8092-01-59 11:26:00* Test Item Value Reference Range Interpretation Comments B-Type Natriuretic Peptide (test code = 90600-6) 25.2 0-100 [facility] HospitalB-Type Natriuretic Mrwbmbp6817-55-63 11:26:00* Test Item Value Reference Range Interpretation Comments B-Type Natriuretic Peptide (test code = 12678-7) 25.2 0-100 [facility] HospitalCreatine Kinase OD1063-22-58 09:08:00* Test Item Value Reference Range Interpretation Comments Creatine Kinase MB (test code = 44603-5) 0.80 0.00-5.00 [facility] HospitalTroponin U2086-78-23 09:08:00* Test Item Value Reference Range Interpretation Comments Troponin I (test code = 73138-6) 0.025 0-0.300 [facility] Uinxhgd5267-50-95 07:39:00* Test Item Value Reference Range Interpretation Comments Bedside Glucose (test code = 20656-9) 66 70-120 L Meter ID: [id number] [facility] Glucose 2017-05-27 07:39:00* Test Item Value Reference Range Interpretation Comments Bedside Glucose (test code = 11808-5) 66 70-120 L Meter ID: [id number] Plains Memorial HospitalCreatine Kinase 2017-05-27 07:29:00* Test Item Value Reference Range Interpretation Comments Creatine Kinase (test code = 2157-6) 30 30-200 [facility] HospitalUrine QQQ0574-60-36 15:16:00* Test Item Value Reference Range Interpretation Comments Urine WBC (test code = 5821-4) 6-10 0-5 H [facility] HospitalUrine BDG7633-69-18 15:16:00* Test Item Value Reference Range Interpretation Comments Urine RBC (test code = 54246-6) 21-50 0-5 H [facility] HospitalUrine Tvtrjldf7670-53-62 15:16:00* Test Item Value Reference Range Interpretation Comments Urine Bacteria (test code = 70093-7) MANY NONE H [facility] HospitalUrine Epithelial Mpxkr0179-74-24 15:16:00 * Test Item Value Reference Range Interpretation Comments Urine Epithelial Cells (test code = 88201-4) RARE NONE [facility] HospitalUrine Tdscw0639-70-12 15:16:00* Test Item Value Reference Range Interpretation Comments Urine Mucus (test code = 8247-9) MODERATE RARE H [facility] HospitalUrine Ofbnw2899-03-85 15:08:00* Test Item Value Reference Range Interpretation Comments Urine Color (test code = 5778-6) YELLOW YELLOW [facility] HospitalUrine Dqatxpy1854-18-36 15:08:00* Test Item Value Reference Range Interpretation Comments Urine Clarity (test code = 29506-4) SL CLOUDY CLEAR H [facility] HospitalUrine Specific Pnjklno1295-39-81 15:08:00 * Test Item Value Reference Range Interpretation Comments Urine Specific [place] (test code = 5811-5) 1.025 1.010-1.02 5 [facility] HospitalUrine iY4739-39-66 15:08:00* Test Item Value Reference Range Interpretation Comments Urine pH (test code = 75324-9) 6 5-7 [facility] HospitalUrine Leukocyte Ycinakvu7934-17-31 15:08:00* Test Item Value Reference Range Interpretation Comments Urine Leukocyte Esterase (test code = 5799-2) 1+ NEGATIVE H [facility] Jlzecel1103-38-82 15:08:00* Test Item Value Reference Range Interpretation Comments Urine Nitrite (test code = 40476-4) POSITIVE NEGATIVE H [facility] Idknuzs8093-07-17 15:08:00* Test Item Value Reference Range Interpretation Comments Urine Protein (test code = 5804-0) 2+ NEGATIVE H [facility] HospitalUrine Glucose (UA)2017-05-26 15:08:00* Test Item Value Reference Range Interpretation Comments Urine Glucose (UA) (test code = 2349-9) NEGATIVE NEGATIVE [facility] HospitalUrine Xlqiosv7863-64-12 15:08:00* Test Item Value Reference Range Interpretation Comments Urine Ketones (test code = 98089-3) TRACE NEGATIVE H [facility] Xusjtfxiyjls7749-33-61 15:08:00* Test Item Value Reference Range Interpretation Comments Urine Urobilinogen (test code = 18252-0) 0.2 0.2-1 [facility] HospitalUrine Uatvgfcnq6314-07-34 15:08:00* Test Item Value Reference Range Interpretation Comments Urine Bilirubin (test code = 1978-6) 1+ NEGATIVE H Confirmatory test currently unavailable. False positive results may occur.[facility] Hpdaq4196-62-66 15:08:00* Test Item Value Reference Range Interpretation Comments Urine Blood (test code = 31406-9) 4+ NEGATIVE H [facility] HospitalThyroid Stimulating Hormone (TSH) 2017-05-26 14:19:00* Test Item Value Reference Range Interpretation Comments Thyroid Stimulating Hormone (TSH) (test code = 12034-8) 1.525 0.350-4.940 [facility] HospitalThyroid Stimulating Hormone (TSH) 2017-05-26 14:19:00* Test Item Value Reference Range Interpretation Comments Thyroid Stimulating Hormone (TSH) (test code = 62247-5) 1.525 0.350-4.940 [facility] Whemgjpaj9957-83-86 14:00:00* Test Item Value Reference Range Interpretation Comments Total Bilirubin (test code = 1975-2) 0.9 0.2-1.2 [facility] HospitalAspartate Amino Transf (AST/SGOT) 2017-05-26 14:00:00* Test Item Value Reference Range Interpretation Comments Aspartate Amino Transf (AST/SGOT) (test code = Aspartate Amino Transf (AST/SGOT)) 14 5-34 [facility] HospitalAlanine Aminotransferase (ALT/SGPT) 2017-05-26 14:00:00* Test Item Value Reference Range Interpretation Comments Alanine Aminotransferase (ALT/SGPT) (test code = 1742-6) 13 0-55 [facility] Gynxlfc1339-11-19 14:00:00* Test Item Value Reference Range Interpretation Comments Total Protein (test code = 2885-2) 5.8 6.5-8.1 L [facility] HospitalAlbumin2018-01-17 14:00:00* Test Item Value Reference Range Interpretation Comments Albumin (test code = 1751-7) 3.6 3.5-5.0 [facility] HospitalGlobulin2018-01-17 14:00:00* Test Item Value Reference Range Interpretation Comments Globulin (test code = 66386-7) 2.2 2.3-3.5 L [facility] HospitalAlbumin/Globulin Yvjnh3830-47-40 14:00:00 * Test Item Value Reference Range Interpretation Comments Albumin/Globulin Ratio (test code = 1759-0) 1.6 0.8-2.0 [facility] HospitalAlkaline Nmnrkvhlsjj6212-71-94 14:00:00* Test Item Value Reference Range Interpretation Comments Alkaline Phosphatase (test code = 6768-6) 79 40-150 [facility]17 13:52:00* Test Item Value Reference Range Interpretation Comments Ammonia (test code = 90843-8) 34 31-123 [facility]2018-01-17 13:52:00* Test Item Value Reference Range Interpretation Comments Ammonia (test code = 83740-8) 34 31-123 [facility][Q] CULTURE, URINE, RDAMIBP5148-67-51 00:00:00* Test Item Value Reference Range Interpretation Comments CULTURE (test code = CULTURE) See Comment A CULTURE, URINE, SPECIAL MICRO NUMBER: [id number] TEST STATUS: FINAL SPECIMEN SOURCE: OTHER (SPECIFY) SPECIMEN QUALITY: ADEQUATE RESULT: 1,000-10,000 CFU/mL of Streptococcus viridans group May represent colonizers from external and internal genitalia. No further testing (including susceptibility) will be performed. [facility][Q] CYTOLOGY, TLJ-[id number] 00:00:00* Test Item Value Reference Range Interpretation Comments CLINICAL INFORMATION (test code = CLINICAL INFORMATION) See Comment N Gross hematuria SCREENER (test code = SCREENER) See Comment N JGM, CT(ASCP)CT screening location: [address], [place] [address] PATHOLOGIST (test code = PATHOLOGIST) See Comment N Hector Esposito MD,Board Certified in Anatomic [phone] (electronic signature) Source (test code = Source) See Comment BLADDER Gross Description (test code = Gross Description) See Comment Bladder 70 ml of cloudy dark yellow fluid, 1 ThinPrep. Verified as to patient ID/name. Gross exam(s) performed at: [facility] [address] [phone] Advanced Practice Rn: MORGAN CHAUDHARY M.D. A DIAGNOSIS (test code = A DIAGNOSIS) See Comment Negative for malignancy.See microscopic description. MICROSCOPIC DESCRIPTION:One ThinPrep is examined. This slide shows squamous and urothelial cells. No malignant cells are identified. [facility] PhysiciansXRAY Chest 2 views [id number] 12:25:00EXAM: XR CHEST 2 VIEWSDATE: 04/05/2017 12:25 [...] 12:43Electronically Signed by: Tera Bynum MD 04/05/1712:48FINAL REPORTUnDelta [facility]] CMP W/[id number] 11:50:00* Test Item Value Reference Range Interpretation Comments GLUCOSE; Normal (test code = 1547-9) 90 mg/dl 65-99 N Fasting reference interval UREA NITROGEN (BUN) (test code = UREA NITROGEN (BUN)) 14 mg/dl 7-25 N CREATININE (test code = CREATININE) 0.99 mg/dl 0.70-1.18 N For patients >49 years of age, the reference limitfor Creatinine is approximately 13% higher for peopleidentified as -Montene[place]. eGFR NON- (test code = eGFR NON-JO N GUAMANIAN) 76 {ML/MIN/1.7} > OR = 60 N [...] N BILIRUBIN, TOTAL; Normal (test code = 47848-7) 0.8 mg/dl 0.2-1.2 N ALKALINE PHOSPHATE (test code = ALKALINE PHOSPHATE) 85 u/l 40 -115 N AST; Normal (test code = 1916-6) 13 u/l 10-35 N ALT; Normal (test code = 1742-6) 11 u/l 9-46 N [facility]] CBC (INCLUDES DIFF/PLT)2017-04-05 11:50:00* Test Item Value Reference Range Interpretation Comments WHITE BLOOD CELL COUNT (test code = WHITE BLOOD CELL COUNT) 5.2 {Thousand/u} 3.8-10.8 N RED BLOOD CELL COUNT (test code = RED BLOOD CELL COUNT) 4.70 {Million/uL} 4.20-5.80 N HEMOGLOBIN; Normal (test code = 80306-9) 15.1 g/dl 13.2-17.1 N HEMATOCRIT; Normal (test code = 4544-3) 44.6 % 38.5-50.0 N MCV; Normal (test code = 787-2) 94.9 fL 80.0-100.0 N MCHC; Normal (test code = 73000-1) 33.9 g/dl 32.0-36.0 N RDW; Normal (test code = 788-0) 12.4 % 11.0-15.0 N PLATELET COUNT; Normal (test code = 777-3) 156 {Thousand/u} 140-400 N MPV; Normal (test code = 55780-4) 12.1 fL 7.5-12.5 N ABSOLUTE NEUTROPHILS (test code = ABSOLUTE NEUTROPHILS) 3255 {cells/uL} 5371-7873 N ABSOLUTE LYMPHOCYTES (test code = ABSOLUTE [...] % N MONOCYTES; Normal (test code = 22199-5) 8.1 % N EOSINOPHILS; Normal (test code = 26466-7) 2.5 % N BASOPHILS; Normal (test code = 41403-4) 1.2 % N [facility][O] Urine Dipstick (In Office)2017-04-05 10:30:45 * Test Item Value Reference Range Interpretation Comments LEUKOCYTES (test code = LEUKOCYTES) trace NITRITE; Normal (test code = 76331-3) neg N UROBILINOGEN; Normal (test code = 24134-3) neg N PROTEIN (test code = 68648-8) trace pH (test code = pH) 5 N URINE BLOOD; Normal (test code = 72793-6) neg N SPECIFIC GRAVITY; Normal (test code = 2965-2) 1.015 N KETONES; Normal (test code = 72775-0) neg N BILIRUBIN; Abnormal (test code = 03858-8) + A GLUCOSE; Normal (test code = 1547-9) normal N COLOR URINE; Normal (test code = 5778-6) yellow N APPEARANCE; Normal (test code = 5767-9) clear N [facility]] CULTURE, URINE, [id number] 00:00:00* Test Item Value Reference Range Interpretation Comments CULTURE (test code = CULTURE) See Comment CULTURE, URINE, ROUTINE MICRO NUMBER: [id number] TEST STATUS: FINAL SPECIMEN SOURCE: URINE SPECIMEN QUALITY: ADEQUATE RESULT: Multiple organisms present, each less than 10,000 CFU/mL. These organisms, commonly found on external and internal genitalia, are considered to be colonizers. No further testing performed. [facility] PhysiciansCHEST 2 VIEWS [place] [address] Patient Name: DENITA MASON MR #: [id number] : 1945 Age/Sex: 71/M Req #: [id number] Adm Physician: Ordered by: CHANTALE MCKINLEY MD, MD Report #: [id number] Location: ER Room/Bed: Procedure: [id number] DX/CHEST 2 VIEWS Exam Date : 07/30/17 Exam Time: 1500 REPORT STATUS: Ruby d PROCEDURE: Frontal and lateral views of [...] 15:29 Dictated By: LUIS FERNANDO CURIEL MD 28 Transcribed By: IN FCE on 07/30/171528 COPY TO: CHANTALE MCKINLEY CT BRAIN WO [place] [address] Patient Name: DENITA MASON MR #: [id number] : 0 1945 Age/Sex: 71/M Req #: [id number] Adm Physician: Ordered by: CHANTALE MCKINLEY MD, MD Report #: [id number] Location: ER Room/ Bed: Procedure: [id number] CT/CT BRAIN WO Exam Date: 07/30/17 Exam [...] Signed By: DIETER GUZMAN MD on 07/30/17 1540 Transcrib ed By: PACHECO on 07/30/17 1548 COPY TO: CHANTALE MCKINLEY US PELVIC (NON OB) ROBISON OR F/U [place] [address] Patient Name: DENITA MASON MR #: [id number] : 1945 Age/Sex: 71/M Req #: [id number] Adm Physician: Ordered by: CHANTALE MCKINLEY MD, MD Report #: [id number] Location: ER Room/Bed: Procedure: [id number] US/US PELVIC (NON OB) ROBISON O R [...] COPY TO: CHANTALE MCKINLEY ECHO COMPLETE (ECHOCARDIOGRAM) [place] [address] Patient Name : DENITA MASON MR #: [id number] : 1945 Age/Sex: 71/M Adm Physician : TITA SALCEDO MD Admit Date : 05/27/17 Location : MED/SURG2 Room/Bed : [facility] REPORT: Cardiology Report DATE OF STUDY: May [...] aortic regurgitation. 5. Trace tricuspid regurgitation. Job#: [id number] KB cc: TITA SALCEDO MD Signature Date Dictated By: LUPE NAVARRO MD Transcribed By: SMEDS on 05/28/17 <Electronically signed by LUPE NAVARRO MD><<Signature on File>>06/01/17 1016 COPY TO: [facility] (PORTABLE) [place] [address] Patient Name: DENITA MASON MR #: [id number] : 1945 Age/Sex: 71/M Req #: [id number] Adm Physician: Ordered by: DENITA VALERIO MD Report #: [id number] Location: ER Room/Bed: Procedure: [id number] DX/CHEST SINGLE (PORTABLE) E xam Date: 05/26/17 [...] 05/26/2017 4:11 PM Dictated By: LUIS FERNANDO Salgado lectronically Signed By: LUIS FERNANDO CURIEL MD on 05/26/17 161 Transcribed By: TERESA KAY on 05/26/17 161 COPY TO: DENITA VALERIO MD
--- NOTE | 2020-02-12 15:45 | NUR ---
Attempted to draw blood on pt x 2 failed attempts.
[2020-02-12 16:16] LABS: BASOPHILS # (AUTO) 0.1 (0.0-0.1); BASOPHILS % 1.3 % (0.0-1.0); EOSINOPHILS # (AUTO) 0.2 (0.0-0.4); EOSINOPHILS % 2.5 % (0.0-6.0); HEMOGLOBIN 14.5 g/dL (14.0-18.0); LYMPHOCYTES # (AUTO) 1.4 (1.0-3.2); LYMPHOCYTES % 23.4 % (18.0-39.1); MEAN CORPUSCULAR HEMOGLOBIN 32.3 pg (28-32); MEAN CORPUSCULAR HGB CONC 32.2 g/dL (31-35); MEAN CORPUSCULAR VOLUME 100.2 fL (81-99); MONOCYTES # (AUTO) 0.7 (0.2-0.8); MONOCYTES % 10.9 % (4.4-11.3); NEUTROPHILS # (AUTO) 3.8 (2.1-6.9); NEUTROPHILS % 61.6 % (38.7-80.0); PLATELET COUNT 158 x10e3/uL (140-360); RED BLOOD COUNT 4.49 x10e6/uL (4.3-5.7); RED CELL DISTRIBUTION WIDTH 13.9 % (11.7-14.4)
[2020-02-12 16:37] LABS: ALANINE AMINOTRANSFERASE 30 IU/L (0-55); ALBUMIN 3.4 g/dL (3.5-5.0); ALBUMIN/GLOBULIN RATIO 1.4 (0.8-2.0); ALKALINE PHOSPHATASE 72 IU/L (40-150); ANION GAP 12.1 mmol/L (8-16); BLOOD UREA NITROGEN 21 mg/dL (7-26); BUN/CREATININE RATIO 21 (6-25); CALCIUM 8.8 mg/dL (8.4-10.2); CARBON DIOXIDE 27 mmol/L (22-29); CHLORIDE 111 mmol/L (98-107); CREATININE, SERUM 0.99 mg/dL (0.72-1.25); EST GLOMERULAR FILTRATION RATE > 60 ML/MIN (60-); GLUCOSE 82 mg/dL (74-118); POTASSIUM 4.1 mmol/L (3.5-5.1); SODIUM 146 mmol/L (136-145)
[2020-02-12 16:41] LABS: BILIRUBIN,URINE NEGATIVE (NEGATIVE); CLARITY,URINE SL CLOUDY (CLEAR); COLOR,URINE AMBER (YELLOW); KETONES,URINE 1+ (NEGATIVE); LEUKOCYTE ESTERASE ,URINE NEGATIVE (NEGATIVE); NITRITE,URINE NEGATIVE (NEGATIVE); PROTEIN,URINE DIPSTICK 1+ (NEGATIVE); URINE UROBILINOGEN 0.2 mg/dL (0.2 - 1)
[2020-02-12 16:52] LABS: AMORPHOUS SEDIMENT,URINE FEW (FEW); BACTERIA,URINE FEW /HPF
--- NOTE | 2020-02-12 16:58 | Emergency Department Note ---
History of Present Illnes History of Present Illness Chief Complaint: Abdominal Complaints History of Present Illness This is a 74 year old male Chief Complaint Comment pt very angry. pt demanding. states pt has dementia. pt awake and alert. signed in for constipation. no bm x4 days. . Historian: Patient, Family Member Arrival Mode: Car Onset (how long ago): day(s) (2) Location: WEAK Radiation: Denies non-radiation, Denies back, Denies neck, Denies extremity, Denies abdomen, Denies periumbilical, Denies flank, Denies proximal, Denies distal, Denies other Severity: mild Onset quality: gradual Duration (how long): day(s) (2) Progression: waxing and waning Chronicity: new Context: Denies recent illness, Denies recent surgery, Denies recent immobilization, Denies recent travel, Denies trauma/injury, Denies new medications, Denies hx of DVT/PE, Denies non-compliance w/ medications, Denies other Relieving factors: none Exacerbating factors: none Past Medical/Family History Physician Review I have reviewed the patient's past medical and family history. Any updates have been documented here. Past Medical History Recent Fever: No Clinical Suspicion of Infectio: No New/Unexplained Change in Ment: No Past Medical History: A-Fib, UTI's, Other Mental Illness Other Medical History: BPH INDWELLING CATHETER DEMENTIA Past Surgical History: Hernia Repair Other Surgery: HERNIA REPAIR TESTICLE REMOVED PROSTATE REMOVED Social History Smoking Cessation: Unknown if ever smoked Counseling Performed: No Alcohol Use: None Any Illegal Drug Use: No Other Last Tetanus: UNKNOWN Any Pre-Existing Lines (PICC,: No Review of Systems Review of Systems Constitutional: Reports no symptoms EENTM: Reports no symptoms Cardiovascular: Reports no symptoms Respiratory: Reports no symptoms Gastrointestinal: Reports no symptoms Genitourinary: Reports no symptoms Musculoskeletal: Reports no symptoms Integumentary: Reports no symptoms Neurological: Reports as per HPI Psychological: Reports no symptoms Endocrine: Reports no symptoms Hematological/Lymphatic: Reports no symptoms Physical Exam Related Data Allergies: Coded Allergies: tobramycin (Verified Allergy, Unknown, 04/06/09) Triage Vital Signs Vital Signs Date Time Temp Pulse Resp B/P (MAP) Pulse Ox O2 Delivery O2 Flow Rate FiO2 02/12/20 14:18 97.5 97 18 148/97 97 Room Air Vital signs reviewed: Yes Physical Exam CONSTITUTIONAL Constitutional: Present well-developed, Present well-nourished HENT HENT: Present normocephalic, Present atraumatic, Present oropharynx clear/moist, Present nose normal HENT L/R: Present left ext ear normal, Present right ext ear normal EYES Eyes: Reports PERRL, Reports conjunctivae normal NECK Neck: Present ROM normal PULMONARY Pulmonary: Present effort normal, Present breath sounds normal CARDIOVASCULAR Cardiovascular: Present regular rhythm, Present heart sounds normal, Present capillary refill normal, Present normal rate GASTROINTESTINAL Abdominal: Present soft, Present nontender, Present bowel sounds normal GENITOURINARY Genitourinary: Present exam deferred SKIN Skin: Present warm, Present dry MUSCULOSKELETAL Musculoskeletal: Present ROM normal NEUROLOGICAL Neurological: Present alert, Present no gross motor or sensory deficits PSYCHOLOGICAL Psychological: Present mood/affect normal, Present judgement normal Results Laboratory Result Diagram: 02/12/20 1550 02/12/20 1550 Laboratory Laboratory Tests Test 02/12/20 16:32 02/12/20 15:50 Urine Color Eri (YELLOW) Urine Clarity Sl cloudy (CLEAR) Urine pH 6.5 (5 - 7) Urine Specific [place] 1.025 (1.010-1.025) Urine Protein 1+ (NEGATIVE) Urine Glucose (UA) Negative (NEGATIVE) Urine Ketones 1+ (NEGATIVE) Urine Blood Negative (NEGATIVE) Urine Nitrite Negative (NEGATIVE) Urine Bilirubin Negative (NEGATIVE) Urine Urobilinogen 0.2 mg/dL (0.2 - 1) Urine Leukocyte Esterase Negative (NEGATIVE) Urine RBC None /HPF (0-5) Urine WBC None /HPF (0-5) Urine Epithelial Cells None /LPF (NONE) Urine Amorphous Sediment Few (FEW) Urine Bacteria Few /HPF (NONE) White Blood Count 6.08 x10e3/uL (4.8-10.8) Red Blood Count 4.49 x10e6/uL (4.3-5.7) Hemoglobin 14.5 g/dL (14.0-18.0) Hematocrit 45.0 % (38.2-49.6) Mean Corpuscular Volume 100.2 fL (81-99) Mean Corpuscular Hemoglobin 32.3 pg (28-32) Mean Corpuscular Hemoglobin Concent 32.2 g/dL (31-35) Red Cell Distribution Width 13.9 % (11.7-14.4) Platelet Count 158 x10e3/uL (140-360) Neutrophils (%) (Auto) 61.6 % (38.7-80.0) Lymphocytes (%) (Auto) 23.4 % (18.0-39.1) Monocytes (%) (Auto) 10.9 % (4.4-11.3) Eosinophils (%) (Auto) 2.5 % (0.0-6.0) Basophils (%) (Auto) 1.3 % (0.0-1.0) Neutrophils # (Auto) 3.8 (2.1-6.9) Lymphocytes # (Auto) 1.4 (1.0-3.2) Monocytes # (Auto) 0.7 (0.2-0.8) Eosinophils # (Auto) 0.2 (0.0-0.4) Basophils # (Auto) 0.1 (0.0-0.1) Absolute Immature Granulocyte (auto 0.02 x10e3/uL (0-0.1) Sodium Level 146 mmol/L (136-145) Potassium Level 4.1 mmol/L (3.5-5.1) Chloride Level 111 mmol/L (98-107) Carbon Dioxide Level 27 mmol/L (22-29) Anion Gap 12.1 mmol/L (8-16) Blood Urea Nitrogen 21 mg/dL (7-26) Creatinine 0.99 mg/dL (0.72-1.25) Estimat Glomerular Filtration Rate > 60 ML/MIN (60-) BUN/Creatinine Ratio 21 (6-25) Glucose Level 82 mg/dL (74-118) Calcium Level 8.8 mg/dL (8.4-10.2) Total Bilirubin 0.5 mg/dL (0.2-1.2) Aspartate Amino Transf (AST/SGOT) 21 IU/L (5-34) Alanine Aminotransferase (ALT/SGPT) 30 IU/L (0-55) Alkaline Phosphatase 72 IU/L (40-150) Total Protein 5.8 g/dL (6.5-8.1) Albumin 3.4 g/dL (3.5-5.0) Globulin 2.4 g/dL (2.3-3.5) Albumin/Globulin Ratio 1.4 (0.8-2.0) Lab results reviewed: Yes Imaging Imaging results reviewed: Yes Assessment & Plan Medical Decision Making MDM UTI TIA DEMENTIA Reassessment Reassessment time: 16:58 Reassessment BETTER Assessment & Plan Final Impression: (1) Altered mental status (2) Dementia Depart Disposition: HOME, SELF-CARE Last Vital Signs Date Time Temp Pulse Resp B/P (MAP) Pulse Ox O2 Delivery O2 Flow Rate FiO2 02/12/20 15:35 80 16 96 Room Air 02/12/20 14:18 97.5 Home Meds Active Scripts Nitrofurantoin Monohyd/M-Cryst (MACROBID 100 MG CAPSULE) 100 Mg Capsule, 100 MG PO BIDWM, #10 CAP Prov:RICARDO ELLIS MD 02/09/20 Ziprasidone (GEODON) 20 Mg Cap, 20 MG PO BID for agitation, #20 Prov:RICARDO ELLIS MD 02/09/20 Reported Medications Polyethylene Glycol 3350 (MIRALAX) 17 Gm Powd.pack, 0.5 PKT PO DAILY 07/31/17 Aspirin (ASPIRIN) 81 Mg Tab.chew, 1 TAB PO DAILY 05/26/17 Aripiprazole (ABILIFY) 5 Mg Tablet, 2 MG PO DAILY, #30 TAB 05/26/17 Tamsulosin Hcl* (FLOMAX*) 0.4 Mg Cap, 0.4 MG PO DAILY, #30 CAP 05/26/17 Finasteride (FINASTERIDE) 5 Mg Tablet, 5 MG PO DAILY, #30 TAB 05/26/17 RICARDO ELLIS MD Feb 12, 2020 16:58
== END 2020-02-12 17:24 | disposition home or self-care (01) ==
LOC: ER 15:34
DX: F03.90 Unspecified dementia, unspecified severity, without behavioral disturbance, psychotic disturbance, mood disturbance, and anxiety (principal); I48.91 Unspecified atrial fibrillation; R94.31 Abnormal electrocardiogram [ECG] [EKG]
CPT/HCPCS: 36415; 74022; 80053; 81001; 85025; 93005; 99284

== ENCOUNTER 2021-03-12 13:55 | Observation (INO) | payer OTHER ==
[~2021-03-12] VITALS: Ht 177.8 cm; Wt 98.0 kg
[2021-03-12 09:00] VITALS: BP 123/86
[2021-03-12] MEDS ORDERED: ASPIRIN 81 MG CHEW TAB PO ONE (14:30)
[2021-03-12] MEDS ORDERED: SODIUM CHLORIDE 0.9% 1000ML 500 ML IV ONE (14:40)
[2021-03-12 15:05] LABS: BASOPHILS # (AUTO) 0.1 (0.0-0.1); BASOPHILS % 0.6 % (0.0-1.0); EOSINOPHILS # (AUTO) 0.1 (0.0-0.4); EOSINOPHILS % 0.6 % (0.0-6.0); HEMATOCRIT 48.8 % (38.2-49.6); HEMOGLOBIN 15.7 g/dL (14.0-18.0); LYMPHOCYTES # (AUTO) 1.3 (1.0-3.2); LYMPHOCYTES % 14.2 % (18.0-39.1); MEAN CORPUSCULAR HEMOGLOBIN 31.1 pg (28-32); MEAN CORPUSCULAR HGB CONC 32.2 g/dL (31-35); MEAN CORPUSCULAR VOLUME 96.6 fL (81-99); MONOCYTES # (AUTO) 0.9 (0.2-0.8); MONOCYTES % 9.8 % (4.4-11.3); NEUTROPHILS # (AUTO) 6.7 (2.1-6.9); NEUTROPHILS % 74.5 % (38.7-80.0); PLATELET COUNT 166 x10e3/uL (140-360); RED BLOOD COUNT 5.05 x10e6/uL (4.3-5.7)
[2021-03-12 15:16] LABS: INR 1.26; PARTIAL THROMBOPLASTIN TIME 33.2 seconds (23.8-35.5); PROTHROMBIN TIME 16.8 seconds (11.9-14.5)
[2021-03-12 15:17] LABS: CLARITY,URINE SL CLOUDY (CLEAR); COLOR,URINE STRAW (YELLOW); KETONES,URINE 1+ (NEGATIVE); LEUKOCYTE ESTERASE ,URINE NEGATIVE (NEGATIVE); NITRITE,URINE NEGATIVE (NEGATIVE); PROTEIN,URINE DIPSTICK 2+ (NEGATIVE); URINE UROBILINOGEN 0.2 mg/dL (0.2 - 1)
[2021-03-12 15:23] LABS: ALBUMIN 3.7 g/dL (3.5-5.0); ALBUMIN/GLOBULIN RATIO 1.3 (0.8-2.0); ANION GAP 15.9 mmol/L (8-16); CALCIUM 8.8 mg/dL (8.4-10.2); CREATININE, SERUM 1.22 mg/dL (0.72-1.25); POTASSIUM 3.9 mmol/L (3.5-5.1)
[2021-03-12 15:30] LABS: CREATINE KINASE MB 5.8 ng/mL (0-5.0)
[2021-03-12] MEDS ORDERED: METOPROLOL TARTRATE INJ 1 MG/ML VIAL IV NR ×2 (15:30→17:30)
[2021-03-12 15:33] LABS: AMORPHOUS SEDIMENT,URINE MODERATE (FEW); BACTERIA,URINE MODERATE /HPF; EPITHELIAL CELLS,URINE FEW /LPF; TRANSITIONAL EPI CELLS,URINE MODERATE; WBC,URINE (MAN) 0-5 /HPF (0-5)
[2021-03-12] MEDS ORDERED: METOPROLOL SUCCINATE 25 MG TAB XL PO ONE (15:45)
[2021-03-12 16:00] VITALS: BP 123/86
[2021-03-12] MEDS ORDERED: ONDANSETRON HCL INJ 2MG/ML 2ML 2 MG/ML VIAL IV PRN (16:15)
[2021-03-12] MEDS: SODIUM CHLORIDE 0.9% 1000ML 1,000 ML IV SCH ×2 (16:46→18:30)
[2021-03-12 17:04] LABS: CREATINE KINASE MB 5.4 ng/mL (0-5.0)
[2021-03-12 18:24] VITALS: BP 123/86
[2021-03-12] MEDS: METOPROLOL TARTRATE 25 MG TAB PO SCH (18:28)
[2021-03-12 20:00] VITALS: BP 142/111
[2021-03-13] VITALS (9 sets, daily range): BP systolic 117–144; BP diastolic 96–113
[2021-03-13 05:46] LABS: BASOPHILS # (AUTO) 0.1 (0.0-0.1); BASOPHILS % 0.7 % (0.0-1.0); EOSINOPHILS # (AUTO) 0.1 (0.0-0.4); EOSINOPHILS % 1.1 % (0.0-6.0); HEMATOCRIT 47.4 % (38.2-49.6); HEMOGLOBIN 15.5 g/dL (14.0-18.0); LYMPHOCYTES # (AUTO) 1.7 (1.0-3.2); LYMPHOCYTES % 23.2 % (18.0-39.1); MEAN CORPUSCULAR HEMOGLOBIN 31.6 pg (28-32); MEAN CORPUSCULAR HGB CONC 32.7 g/dL (31-35); MEAN CORPUSCULAR VOLUME 96.5 fL (81-99); MONOCYTES # (AUTO) 0.8 (0.2-0.8); MONOCYTES % 10.8 % (4.4-11.3); NEUTROPHILS # (AUTO) 4.7 (2.1-6.9); NEUTROPHILS % 63.9 % (38.7-80.0); PLATELET COUNT 143 x10e3/uL (140-360); RED BLOOD COUNT 4.91 x10e6/uL (4.3-5.7); RED CELL DISTRIBUTION WIDTH 14.1 % (11.7-14.4)
[2021-03-13 06:16] LABS: ALBUMIN 3.3 g/dL (3.5-5.0); ALBUMIN/GLOBULIN RATIO 1.2 (0.8-2.0); ANION GAP 17.1 mmol/L (8-16); CALCIUM 8.2 mg/dL (8.4-10.2); CREATININE, SERUM 1.12 mg/dL (0.72-1.25); POTASSIUM 4.1 mmol/L (3.5-5.1)
[2021-03-13 06:17] LABS: CHOL/HDL RATIO 5.2 (3.9-4.7)
[2021-03-13 06:36] LABS: CREATINE KINASE MB 8.2 ng/mL (0-5.0)
[2021-03-13] MEDS: METOPROLOL TARTRATE 25 MG TAB PO SCH (08:41)
[2021-03-13] MEDS ORDERED: METOPROLOL SUCC25 MG PO (09:31)
[2021-03-13] MEDS ORDERED: ESCITALOPRAM OX20 MG PO (09:31)
[2021-03-13] MEDS ORDERED: ELIQUIS5 MG PO (09:31)
[2021-03-13] MEDS ORDERED: VITAMIN D310 MCG (10:30)
[2021-03-13] MEDS ORDERED: CRANBERRY425 MG PO (10:30)
[2021-03-13] MEDS ORDERED: VITAMIN B122500 MCG PO (10:30)
[2021-03-13] MEDS ORDERED: MULTI-VITAMIN1 EACH PO (10:31)
[2021-03-13] MEDS ORDERED: METOPROLOL TARTRATE 50 MG TAB PO ONE (11:30)
[2021-03-13] MEDS: CEFUROXIME AXETIL 250 MG TAB PO SCH ×2 (11:40→16:59)
[2021-03-13] MEDS ORDERED: ONDANSETRON HCL 4 MG ORAL DISINTEGRATING TAB PO PRN (12:15)
[2021-03-13] MEDS ORDERED: APIXABAN 5 MG TABLET PO ONE (12:30)
[2021-03-13 14:11] LABS: CREATINE KINASE MB 7.7 ng/mL (0-5.0)
[2021-03-13] MEDS: APIXABAN 5 MG TABLET PO SCH (16:59)
[2021-03-13] MEDS ORDERED: METOPROLOL TARTRATE 50 MG TAB PO SCH (17:00)
[2021-03-13] MEDS ORDERED: FUROSEMIDE INJ 10 MG/ML 4 ML VIAL IV ONE (18:30)
[2021-03-13] MEDS ORDERED: IOPAMIDOL 370 MG/ML 200 ML INFUS..BTL INJ ONE (19:17)
[2021-03-13] MEDS ORDERED: SODIUM CHLORIDE 0.9% 50ML 50 ML ONE (19:17)
[2021-03-14] VITALS: BP 116/95
[2021-03-14 04:00] VITALS: BP 127/107
[2021-03-14] MEDS: FUROSEMIDE INJ 10 MG/ML 4 ML VIAL IV SCH ×2 (05:37→09:18)
[2021-03-14 07:48] VITALS: BP 128/97
[2021-03-14 08:04] VITALS: BP 128/80
[2021-03-14] MEDS ORDERED: TAMSULOSIN HCL 0.4 MG CAP PO SCH (09:00)
[2021-03-14] MEDS ORDERED: FINASTERIDE 5 MG TAB PO SCH (09:00)
[2021-03-14] MEDS ORDERED: POTASSIUM CHLORIDE 20 MEQ TAB CR PO SCH (09:00)
[2021-03-14] MEDS: APIXABAN 5 MG TABLET PO SCH (09:18)
[2021-03-14] MEDS: CEFUROXIME AXETIL 250 MG TAB PO SCH (09:18)
[2021-03-14] MEDS: METOPROLOL TARTRATE 50 MG TAB PO SCH ×2 (09:19→13:17)
[2021-03-14 12:01] VITALS: BP 104/85
== END 2021-03-14 15:40 | disposition home or self-care (01) ==
LOC: ER 14:07 → ERHOLD 16:19 → MED/SURG3 17:51
PROVIDERS: ADMIT Internal Medicine; ATTEND Internal Medicine
DX: I48.91 Unspecified atrial fibrillation (principal); K52.9 Noninfective gastroenteritis and colitis, unspecified; N41.9 Inflammatory disease of prostate, unspecified; I11.0 Hypertensive heart disease with heart failure; I50.9 Heart failure, unspecified; Z88.8 Allergy status to other drugs, medicaments and biological substances; E86.0 Dehydration
CPT/HCPCS: 36415 ×2; 71045; 71260; 80053 ×2; 80061; 81001; 82550 ×2; 82553 ×2; 83690; 83880; 84484 ×2; 85025 ×2; 85610; 85730; 93005; 96360; 96361; 99284; G0378 ×3; J1940 ×2; J7030; Q9967; U0002

== ENCOUNTER 2022-07-17 10:08 | Inpatient (IN) | payer MEDICARE, OTHER ==
[2022-07-16 13:33] LABS: BASOPHILS % 0.5 % (0.0-1.0); EOSINOPHILS # (AUTO) 0.1 (0.0-0.4); EOSINOPHILS % 1.5 % (0.0-6.0); HEMATOCRIT 47.8 % (38.2-49.6); HEMOGLOBIN 15.3 g/dL (14.0-18.0); LYMPHOCYTES # (AUTO) 1.5 (1.0-3.2); LYMPHOCYTES % 25.9 % (18.0-39.1); MEAN CORPUSCULAR HEMOGLOBIN 31.9 pg (28-32); MEAN CORPUSCULAR VOLUME 99.8 fL (81-99); MONOCYTES # (AUTO) 0.5 (0.2-0.8); MONOCYTES % 8.3 % (4.4-11.3); NEUTROPHILS # (AUTO) 3.7 (2.1-6.9); NEUTROPHILS % 63.5 % (38.7-80.0); PLATELET COUNT 129 x10e3/uL (140-360); RED BLOOD COUNT 4.79 x10e6/uL (4.3-5.7); RED CELL DISTRIBUTION WIDTH 12.9 % (11.7-14.4)
[2022-07-16 13:48] LABS: ANION GAP 14.4 mmol/L (8-16); CALCIUM 9.4 mg/dL (8.4-10.2); CREATININE, SERUM 1.13 mg/dL (0.72-1.25); POTASSIUM 4.4 mmol/L (3.5-5.1)
[~2022-07-17 10:08] MED LIST changes: +ANTIBIOTIC28.4 GM; +CRANBERRY425 MG PO; +ELIQUIS5 MG PO; +ESCITALOPRAM OX20 MG PO; +FOLIC ACID0.4 MG PO; +FUROSEMIDE40 MG PO; +LEXAPRO20 MG PO; +METOPROLOL TART50 MG PO; +MULTI-VITAMIN1 EACH PO; +POTASSIUM CL; +VITAMIN B122500 MCG PO; +VITAMIN D310 MCG
[2022-07-17] MEDS ORDERED: CEFTRIAXONE 1 GM VIAL ONE (10:53)
[2022-07-17] MEDS ORDERED: SODIUM CHLORIDE 0.9% 1000ML 1,000 ML ONE (10:54)
[2022-07-17] MEDS ORDERED: ACETAMINOPHEN 1000 MG/100 ML 100 ML IV ONE (11:03)
[2022-07-17] MEDS ORDERED: NITROFURANTOIN100 MG PO (11:22)
[2022-07-17] MEDS ORDERED: FLUCONAZOLE100 MG PO (11:22)
[2022-07-17] MEDS ORDERED: POVIDONE IODINE 0.05% 0.05 % ML PO ONE (11:25)
[2022-07-17] MEDS ORDERED: FUROSEMIDE INJ 10 MG/ML 4 ML VIAL ONE (11:25)
[2022-07-17] MEDS ORDERED: SEVOFLURANE INHAL SOLN 250 ML PEN BTL ONE (11:25)
[2022-07-17] MEDS ORDERED: PROPOFOL IV EMULSION 10 MG/ML 20 ML VIAL ONE (11:25)
[2022-07-17] MEDS ORDERED: LIDOCAINE HCL 2% LOCAL INJ 5 ML SDV VIAL INJ ONE (11:25)
[2022-07-17] MEDS ORDERED: IOPAMIDOL 610MG/1ML 300 MG/ML VIAL IV ONE (11:25)
[2022-07-17] MEDS ORDERED: ONDANSETRON HCL INJ 2MG/ML 2ML 2 MG/ML VIAL ONE (11:25)
[2022-07-17] MEDS ORDERED: EPHEDRINE SULFATE INJ 50 MG/ML VIAL ONE (11:25)
[2022-07-17] MEDS ORDERED: DEXAMETHASONE SOD PHOS INJ 4 MG/ML SDV ONE (11:25)
[2022-07-17] MEDS ORDERED: FENTANYL CITRATE/PF 100MCG/2 ML INJ ONE (12:20)
[2022-07-17] MEDS ORDERED: ALBUMIN 25% 12.5GM 50ML 50 ML IV ONE (12:37)
[2022-07-17] MEDS ORDERED: DIPHENHYDRAMINE HCL INJ 50 MG/ML VIAL IM PRN (15:00)
[2022-07-17] MEDS ORDERED: ACETAMINOPHEN/CODEINE 300MG - 30MG TAB PO PRN (15:00)
[2022-07-17] MEDS ORDERED: ONDANSETRON HCL INJ 2MG/ML 2ML 2 MG/ML VIAL IV PRN (15:00)
[2022-07-17 16:01] LABS: BASOPHILS % 0.3 % (0.0-1.0); EOSINOPHILS % 0.4 % (0.0-6.0); HEMATOCRIT 43.7 % (38.2-49.6); HEMOGLOBIN 13.7 g/dL (14.0-18.0); LYMPHOCYTES # (AUTO) 0.9 (1.0-3.2); LYMPHOCYTES % 10.7 % (18.0-39.1); MEAN CORPUSCULAR HEMOGLOBIN 32.2 pg (28-32); MEAN CORPUSCULAR HGB CONC 31.4 g/dL (31-35); MEAN CORPUSCULAR VOLUME 102.6 fL (81-99); MONOCYTES # (AUTO) 0.2 (0.2-0.8); MONOCYTES % 2.9 % (4.4-11.3); NEUTROPHILS # (AUTO) 6.8 (2.1-6.9); NEUTROPHILS % 85.4 % (38.7-80.0); RED BLOOD COUNT 4.26 x10e6/uL (4.3-5.7)
[2022-07-17 16:03] LABS: PLATELET COUNT 97 x10e3/uL (140-360)
[2022-07-17 16:16] LABS: ANION GAP 13.5 mmol/L (8-16); CALCIUM 7.9 mg/dL (8.4-10.2); CREATININE, SERUM 1.11 mg/dL (0.72-1.25); POTASSIUM 4.5 mmol/L (3.5-5.1)
[2022-07-17 16:27] VITALS: BP 140/81
[2022-07-17 16:29] VITALS: BP 140/81
[2022-07-17] MEDS ORDERED: DOCUSATE SODIUM 100 MG CAP PO SCH (17:00)
[2022-07-17] MEDS ORDERED: ACETAMINOPHEN 1000 MG/100 ML IV PRN (18:00)
[2022-07-17] MEDS: SODIUM CHLORIDE 0.9% 1000ML 1,000 ML IV SCH (20:26)
[2022-07-17] MEDS: DOCUSATE SODIUM 100 MG CAP PO SCH (20:26)
[2022-07-17 21:42] VITALS: BP 129/87
[2022-07-17 21:43] VITALS: BP 129/87
[2022-07-18] VITALS: BP 106/71
[2022-07-18 04:00] VITALS: BP 113/69
[2022-07-18 05:52] LABS: BASOPHILS % 0.3 % (0.0-1.0); HEMATOCRIT 41.8 % (38.2-49.6); HEMOGLOBIN 13.4 g/dL (14.0-18.0); LYMPHOCYTES # (AUTO) 0.8 (1.0-3.2); LYMPHOCYTES % 7.7 % (18.0-39.1); MEAN CORPUSCULAR HEMOGLOBIN 32.1 pg (28-32); MEAN CORPUSCULAR HGB CONC 32.1 g/dL (31-35); MEAN CORPUSCULAR VOLUME 100.2 fL (81-99); MONOCYTES # (AUTO) 0.7 (0.2-0.8); MONOCYTES % 6.8 % (4.4-11.3); NEUTROPHILS # (AUTO) 8.6 (2.1-6.9); NEUTROPHILS % 84.8 % (38.7-80.0); PLATELET COUNT 117 x10e3/uL (140-360); RED BLOOD COUNT 4.17 x10e6/uL (4.3-5.7); RED CELL DISTRIBUTION WIDTH 13.1 % (11.7-14.4)
[2022-07-18 06:13] LABS: ANION GAP 11.2 mmol/L (8-16); CALCIUM 8.2 mg/dL (8.4-10.2); CREATININE, SERUM 1.01 mg/dL (0.72-1.25); POTASSIUM 4.2 mmol/L (3.5-5.1)
[2022-07-18] MEDS: SODIUM CHLORIDE 0.9% 1000ML 1,000 ML IV SCH (06:49)
[2022-07-18 07:45] VITALS: BP 113/69
[2022-07-18 08:12] VITALS: BP 118/68
[2022-07-18] MEDS: DOCUSATE SODIUM 100 MG CAP PO SCH ×2 (09:00→20:57)
[2022-07-18 19:25] VITALS: BP 126/80
[2022-07-19] VITALS (7 sets, daily range): BP systolic 115–156; BP diastolic 75–92
[2022-07-19 05:39] LABS: BASOPHILS % 0.6 % (0.0-1.0); EOSINOPHILS # (AUTO) 0.2 (0.0-0.4); EOSINOPHILS % 2.9 % (0.0-6.0); HEMATOCRIT 40.9 % (38.2-49.6); HEMOGLOBIN 12.9 g/dL (14.0-18.0); LYMPHOCYTES # (AUTO) 0.7 (1.0-3.2); LYMPHOCYTES % 9.9 % (18.0-39.1); MEAN CORPUSCULAR HEMOGLOBIN 32.5 pg (28-32); MEAN CORPUSCULAR HGB CONC 31.5 g/dL (31-35); MONOCYTES # (AUTO) 0.5 (0.2-0.8); MONOCYTES % 6.8 % (4.4-11.3); NEUTROPHILS # (AUTO) 5.7 (2.1-6.9); NEUTROPHILS % 79.2 % (38.7-80.0); PLATELET COUNT 88 x10e3/uL (140-360); RED BLOOD COUNT 3.97 x10e6/uL (4.3-5.7); RED CELL DISTRIBUTION WIDTH 13.3 % (11.7-14.4)
[2022-07-19 06:01] LABS: ANION GAP 10.9 mmol/L (8-16); CALCIUM 8.4 mg/dL (8.4-10.2); CREATININE, SERUM 0.84 mg/dL (0.72-1.25); POTASSIUM 3.9 mmol/L (3.5-5.1)
[2022-07-19] MEDS: SODIUM CHLORIDE 0.9% 1000ML 1,000 ML IV SCH (07:00)
[2022-07-19] MEDS: DOCUSATE SODIUM 100 MG CAP PO SCH ×2 (09:00→20:28)
[2022-07-19] MEDS ORDERED: METOPROLOL TARTRATE 50 MG TAB PO SCH ×2 (16:15→17:00)
[2022-07-19] MEDS: PHENAZOPYRIDINE HCL 100 MG TAB PO PRN (17:10)
[2022-07-19] MEDS: METOPROLOL TARTRATE 50 MG TAB PO SCH (20:29)
[2022-07-19] MEDS ORDERED: MELATONIN 5 MG TABLET PO PRN (21:45)
[2022-07-19] MEDS ORDERED: DOCUSATE SODIUM 100 MG CAP PO PRN (21:45)
[2022-07-19] MEDS ORDERED: POTASSIUM CHLORIDE 20 MEQ TAB CR PO PRN (21:45)
[2022-07-19] MEDS ORDERED: BENZONATATE 100 MG CAP PO PRN (21:45)
[2022-07-19] MEDS ORDERED: SIMETHICONE 80 MG CHEW PO PRN (21:45)
[2022-07-19] MEDS ORDERED: DEXTROSE 50% SYRINGE 50 ML IV PRN (21:45)
[2022-07-19] MEDS ORDERED: DIPHENHYDRAMINE HCL 25 MG CAP PO PRN (21:45)
[2022-07-20] VITALS (8 sets, daily range): BP systolic 112–147; BP diastolic 70–94
[2022-07-20 05:18] LABS: BASOPHILS % 0.8 % (0.0-1.0); EOSINOPHILS # (AUTO) 0.2 (0.0-0.4); EOSINOPHILS % 4.4 % (0.0-6.0); HEMATOCRIT 41.4 % (38.2-49.6); LYMPHOCYTES # (AUTO) 0.8 (1.0-3.2); LYMPHOCYTES % 14.5 % (18.0-39.1); MEAN CORPUSCULAR HEMOGLOBIN 31.9 pg (28-32); MEAN CORPUSCULAR HGB CONC 31.4 g/dL (31-35); MEAN CORPUSCULAR VOLUME 101.5 fL (81-99); MONOCYTES # (AUTO) 0.6 (0.2-0.8); MONOCYTES % 12.2 % (4.4-11.3); NEUTROPHILS # (AUTO) 3.5 (2.1-6.9); NEUTROPHILS % 67.7 % (38.7-80.0); PLATELET COUNT 101 x10e3/uL (140-360); RED BLOOD COUNT 4.08 x10e6/uL (4.3-5.7); RED CELL DISTRIBUTION WIDTH 13.4 % (11.7-14.4)
[2022-07-20 05:30] LABS: ANION GAP 10.8 mmol/L (8-16); CALCIUM 7.8 mg/dL (8.4-10.2); CREATININE, SERUM 0.97 mg/dL (0.72-1.25); POTASSIUM 3.8 mmol/L (3.5-5.1)
[2022-07-20] MEDS: SODIUM CHLORIDE 0.9% 1000ML 1,000 ML IV SCH ×2 (06:04→23:31)
[2022-07-20] MEDS: ESCITALOPRAM OXALATE 10 MG TAB PO SCH (09:00)
[2022-07-20] MEDS: METOPROLOL TARTRATE 50 MG TAB PO SCH ×2 (09:00→21:11)
[2022-07-20] MEDS: PANTOPRAZOLE SOD 40 MG TABEC PO SCH (09:01)
[2022-07-20] MEDS: TAMSULOSIN HCL 0.4 MG CAP PO SCH (09:01)
[2022-07-20] MEDS: DOCUSATE SODIUM 100 MG CAP PO SCH ×2 (09:01→21:00)
[2022-07-20] MEDS: PHENAZOPYRIDINE HCL 100 MG TAB PO PRN (09:14)
[2022-07-20] MEDS ORDERED: PHENAZOPYRIDINE HCL 100 MG TAB PO PRN (21:00)
[2022-07-21 04:00] VITALS: BP 132/89
[2022-07-21 05:13] LABS: BASOPHILS # (AUTO) 0.1 (0.0-0.1); BASOPHILS % 0.7 % (0.0-1.0); EOSINOPHILS # (AUTO) 0.3 (0.0-0.4); EOSINOPHILS % 3.8 % (0.0-6.0); HEMATOCRIT 45.8 % (38.2-49.6); HEMOGLOBIN 14.7 g/dL (14.0-18.0); LYMPHOCYTES # (AUTO) 1.2 (1.0-3.2); LYMPHOCYTES % 16.5 % (18.0-39.1); MEAN CORPUSCULAR HEMOGLOBIN 31.9 pg (28-32); MEAN CORPUSCULAR HGB CONC 32.1 g/dL (31-35); MEAN CORPUSCULAR VOLUME 99.3 fL (81-99); MONOCYTES # (AUTO) 0.8 (0.2-0.8); MONOCYTES % 10.8 % (4.4-11.3); NEUTROPHILS # (AUTO) 4.8 (2.1-6.9); NEUTROPHILS % 67.9 % (38.7-80.0); PLATELET COUNT 109 x10e3/uL (140-360); RED BLOOD COUNT 4.61 x10e6/uL (4.3-5.7); RED CELL DISTRIBUTION WIDTH 12.8 % (11.7-14.4)
[2022-07-21 05:37] LABS: CALCIUM 8.9 mg/dL (8.4-10.2); CREATININE, SERUM 1.08 mg/dL (0.72-1.25)
[2022-07-21 08:00] VITALS: BP 143/96
[2022-07-21 09:00] VITALS: BP 143/96
[2022-07-21] MEDS: DOCUSATE SODIUM 100 MG CAP PO SCH (09:00)
[2022-07-21] MEDS: METOPROLOL TARTRATE 50 MG TAB PO SCH (09:03)
[2022-07-21] MEDS: ESCITALOPRAM OXALATE 10 MG TAB PO SCH (09:50)
[2022-07-21] MEDS: TAMSULOSIN HCL 0.4 MG CAP PO SCH (09:50)
[2022-07-21] MEDS: PANTOPRAZOLE SOD 40 MG TABEC PO SCH (09:50)
[2022-07-21] MEDS ORDERED: ONDANSETRON HCL 4 MG ORAL DISINTEGRATING TAB PO PRN (10:45)
[2022-07-21 12:00] VITALS: BP 142/86
[2022-07-21 16:00] VITALS: BP 119/75
[2022-07-21] MEDS ORDERED: BISACODYL 5 MG TAB EC PO ONE ×4 (18:45→20:00)
[2022-07-21] MEDS: SODIUM CHLORIDE 0.9% 1000ML 1,000 ML IV SCH (18:51)
[2022-07-21] MEDS ORDERED: PEG (High)/E-LYTE SOLN 4,000 ML BTL PO ONE (20:30)
== END 2022-07-21 22:30 | disposition home or self-care (01) | DRG 713 ==
LOC: OR 10:08 → MED/SURG2 15:54 → PACU V 15:55 → MED/SURG 15:56 → OR 07-18 09:55 → MED/SURG 07-18 14:56 → UNDOADMIN 07-18 14:56
PROVIDERS: ADMIT Internal Medicine; ATTEND Internal Medicine
PROC: BT141ZZ Fluoroscopy of Kidneys, Ureters and Bladder using Low Osmolar Contrast (ICD-10-PCS; 2022-07-17)
PROC: 0TCB8ZZ Extirpation of Matter from Bladder, Via Natural or Artificial Opening Endoscopic (ICD-10-PCS; 2022-07-17)
PROC: 0T788ZZ Dilation of Bilateral Ureters, Via Natural or Artificial Opening Endoscopic (ICD-10-PCS; principal; 2022-07-17 12:06)
PROC: 0VB08ZZ Excision of Prostate, Via Natural or Artificial Opening Endoscopic (ICD-10-PCS; 2022-07-17 12:06)
DX: N40.1 Benign prostatic hyperplasia with lower urinary tract symptoms (principal); N13.8 Other obstructive and reflux uropathy; N39.0 Urinary tract infection, site not specified; R33.8 Other retention of urine; G30.9 Alzheimer's disease, unspecified; F02.80 Dementia in other diseases classified elsewhere, unspecified severity, without behavioral disturbance, psychotic disturbance, mood disturbance, and anxiety; I48.91 Unspecified atrial fibrillation; I11.0 Hypertensive heart disease with heart failure; I50.9 Heart failure, unspecified; N21.0 Calculus in bladder; R31.0 Gross hematuria; Z79.01 Long term (current) use of anticoagulants
CPT/HCPCS: 0223U; 36415; 71046; 74420; 80048; 83735; 85025; 88300; 88305; 94799; J0696; J1100; J1940; J2001; J2185; J2405; J7030